=== PATIENT | male | born 1940 | race Caucasian/White ===

== ENCOUNTER → 2016-04-21 | Outpatient (CLI) | payer BC ==
[~2016-04-21] MED LIST: ACT15 PO; ALL300 PO; ASPEC81 PO; CITA10TA4 PO; ERGO1CAP35 PO; EZET10TA63 PO; FURO40TA3 PO; GLIM4TAB2 PO; HYDR-4717 PO; LEVO50TA6 PO; MAGN400C2 PO; METO25TA56 PO; SIMV80TA2 PO; SITA1TAB27 PO
[2016-04-21 12:47] LABS: URINE APPEARANCE CLEAR (CLEAR); URINE BILIRUBIN NEG (NEG); URINE COLOR YELLOW; URINE EPITHELIAL CELL AUTO >30 /lpf (0-5); URINE NITRITE NEG (NEG); URINE PH 6.5 (4.5-7.5); URINE PROTIEN/CREAT RATIO 0.3 (0-0.2); URINE SPECIFIC GRAVITY 1.013 (1.000-1.030); URINE TOTAL PROTEIN 33.6 mg/dl (0-11.9); UROBILINOGEN NEG (NEG)
[2016-04-21 12:49] LABS: MANUAL MICROSCOPIC REQUIRED? NO; REVIEW REQ? NO
== END | disposition home or self-care (01) ==
LOC: C.LABBFT 10:37
PROVIDERS: ATTEND Internal Medicine Nephrology
DX: I12.9 Hypertensive chronic kidney disease with stage 1 through stage 4 chronic kidney disease, or unspecified chronic kidney disease (principal); N18.3 Chronic kidney disease, stage 3 (moderate); E11.22 Type 2 diabetes mellitus with diabetic chronic kidney disease; R80.9 Proteinuria, unspecified; E55.9 Vitamin D deficiency, unspecified

== ENCOUNTER → 2016-04-25 | Outpatient (CLI) | payer BC ==
[2016-04-25 13:47] LABS: HEMATOCRIT 42.2 % (42-52); MEAN CELL VOLUME 90.2 fL (80-100); MEAN CORPUSCULAR HEMOGLOBIN 31.4 pg (25-34); MEAN CORPUSCULAR HGB CONC 34.8 g/dl (32-36); PLATELET COUNT 221 K/uL (130-400); RED BLOOD COUNT 4.68 M/uL (4.7-6.1); WHITE BLOOD COUNT 8.62 K/uL (4.8-10.8)
[2016-04-25 14:04] LABS: BLOOD UREA NITROGEN 39 mg/dl (7-18); BUN/CREATININE RATIO 19.3 (10-20); CALCIUM 9.4 mg/dl (8.5-10.1); CARBON DIOXIDE 27 mmol/L (21-32); CHLORIDE 100 mmol/L (98-107); GLUCOSE 372 mg/dl (70-99); POTASSIUM 4.5 mmol/L (3.5-5.1); SODIUM 137 mmol/L (136-145)
[2016-04-25 14:23] LABS: BETA-HYDROXYBUTYRATE 1.69 mg/dL (0.2-2.81)
== END | disposition home or self-care (01) ==
LOC: C.LAB1850 11:52
PROVIDERS: ATTEND Internal Medicine Nephrology
DX: I12.9 Hypertensive chronic kidney disease with stage 1 through stage 4 chronic kidney disease, or unspecified chronic kidney disease (principal); N18.3 Chronic kidney disease, stage 3 (moderate); R80.9 Proteinuria, unspecified; N25.81 Secondary hyperparathyroidism of renal origin; E55.9 Vitamin D deficiency, unspecified

== ENCOUNTER → 2016-06-26 | Outpatient (CLI) | payer BC ==
[2016-06-26 17:46] LABS: HEMATOCRIT 43.5 % (42-52); MEAN CELL VOLUME 93.1 fL (80-100); MEAN CORPUSCULAR HEMOGLOBIN 31.3 pg (25-34); MEAN CORPUSCULAR HGB CONC 33.6 g/dl (32-36); MEAN PLATELET VOLUME 13.6 fL (7.4-10.4); PLATELET COUNT 210 K/uL (130-400); RED BLOOD COUNT 4.67 M/uL (4.7-6.1); WHITE BLOOD COUNT 7.78 K/uL (4.8-10.8)
[2016-06-26 18:04] LABS: URINE APPEARANCE CLEAR (CLEAR); URINE BILIRUBIN NEG (NEG); URINE COLOR YELLOW; URINE EPITHELIAL CELL AUTO 0-5 /lpf (0-5); URINE NITRITE NEG (NEG); URINE SPECIFIC GRAVITY 1.007 (1.000-1.030); UROBILINOGEN NEG (NEG)
[2016-06-26 18:09] LABS: MANUAL MICROSCOPIC REQUIRED? NO; REVIEW REQ? NO
[2016-06-26 18:11] LABS: URINE PROTIEN/CREAT RATIO 0.4 (0-0.2); URINE TOTAL PROTEIN 22.6 mg/dl (0-11.9)
[2016-06-26 18:13] LABS: ALT/SGPT 21 U/L (12-78); BLOOD UREA NITROGEN 38 mg/dl (7-18); BUN/CREATININE RATIO 22.4 (10-20); CALCIUM 9.1 mg/dl (8.5-10.1); CARBON DIOXIDE 27 mmol/L (21-32); CHLORIDE 104 mmol/L (98-107); CHOLESTEROL 154 mg/dl (0-200); GLUCOSE 310 mg/dl (70-99); POTASSIUM 4.7 mmol/L (3.5-5.1); SODIUM 141 mmol/L (136-145); TRIGLYCERIDES 279 mg/dl (0-150); VERY LOW DENSITY LIPOPROT CALC 56 mg/dl
[2016-06-26 18:16] LABS: ALB/GLOB RATIO 1.1 (0.9-2); ALKALINE PHOSPHATASE 86 U/L (45-117); AST/SGOT 18 U/L (15-37)
[2016-06-26 18:21] LABS: RATIO 230.7 mcg/mg (0-30.0)
[2016-06-26 18:23] LABS: BETA-HYDROXYBUTYRATE 1.49 mg/dL (0.2-2.81); CHOLESTEROL/HDL RATIO 4.4; HDL CHOLESTEROL 35 mg/dl; LDL CHOLESTEROL CALCULATED 63 mg/dl
[2016-06-27 06:08] LABS: ESTIMATED AVERAGE GLUCOSE 240 mg/dl; HA1C FLAG Normal (Normal)
== END | disposition home or self-care (01) ==
LOC: C.LABBFT 12:39
PROVIDERS: ATTEND Internal Medicine
DX: I10 Essential (primary) hypertension (principal); R80.9 Proteinuria, unspecified; N18.3 Chronic kidney disease, stage 3 (moderate); N25.81 Secondary hyperparathyroidism of renal origin; E55.9 Vitamin D deficiency, unspecified; E11.21 Type 2 diabetes mellitus with diabetic nephropathy

== ENCOUNTER → 2016-10-23 | Outpatient (CLI) | payer BC | END | disposition home or self-care (01) | LOC: C.PATHSPEC 16:37 | PROVIDERS: ATTEND Dermatology | DX: C44.311 Basal cell carcinoma of skin of nose (principal); C44.319 Basal cell carcinoma of skin of other parts of face; C44.42 Squamous cell carcinoma of skin of scalp and neck; L82.1 Other seborrheic keratosis ==

== ENCOUNTER → 2016-11-20 | Outpatient (CLI) | payer BC | END | disposition home or self-care (01) | LOC: C.PATHSPEC 17:16 | PROVIDERS: ATTEND Plastic Surgery | DX: L90.5 Scar conditions and fibrosis of skin (principal); L57.8 Other skin changes due to chronic exposure to nonionizing radiation; L82.1 Other seborrheic keratosis ==

== ENCOUNTER → 2016-11-24 | Outpatient (CLI) | payer BC ==
[2016-11-24 12:16] LABS: HEMATOCRIT 45.3 % (42-52); MEAN CELL VOLUME 93.4 fL (80-100); MEAN CORPUSCULAR HEMOGLOBIN 30.1 pg (25-34); MEAN CORPUSCULAR HGB CONC 32.2 g/dl (32-36); MEAN PLATELET VOLUME 12.9 fL (7.4-10.4); PLATELET COUNT 228 K/uL (130-400); RED BLOOD COUNT 4.85 M/uL (4.7-6.1); WHITE BLOOD COUNT 9.47 K/uL (4.8-10.8)
[2016-11-24 12:30] LABS: ESTIMATED AVERAGE GLUCOSE 154 mg/dl; HA1C FLAG Normal (Normal)
[2016-11-24 12:31] LABS: ALT/SGPT 28 U/L (12-78); BLOOD UREA NITROGEN 31 mg/dl (7-18); BUN/CREATININE RATIO 19.2 (10-20); CALCIUM 8.4 mg/dl (8.5-10.1); CARBON DIOXIDE 28 mmol/L (21-32); CHLORIDE 107 mmol/L (98-107); CHOLESTEROL 131 mg/dl (0-200); GLUCOSE 147 mg/dl (70-99); POTASSIUM 4.2 mmol/L (3.5-5.1); SODIUM 142 mmol/L (136-145); TRIGLYCERIDES 146 mg/dl (0-150); VERY LOW DENSITY LIPOPROT CALC 29 mg/dl
[2016-11-24 12:40] LABS: URINE PROTIEN/CREAT RATIO 0.3 (0-0.2); URINE TOTAL PROTEIN 22.8 mg/dl (0-11.9)
[2016-11-24 12:41] LABS: URINE APPEARANCE CLEAR (CLEAR); URINE BILIRUBIN NEG (NEG); URINE COLOR YELLOW; URINE EPITHELIAL CELL AUTO 0-5 /lpf (0-5); URINE NITRITE NEG (NEG); URINE PH 7.5 (4.5-7.5); URINE SPECIFIC GRAVITY 1.015 (1.000-1.030); UROBILINOGEN NEG (NEG)
[2016-11-24 12:44] LABS: ALB/GLOB RATIO 0.9 (0.9-2); ALKALINE PHOSPHATASE 93 U/L (45-117); AST/SGOT 18 U/L (15-37); CHOLESTEROL/HDL RATIO 3.9; HDL CHOLESTEROL 34 mg/dl; LDL CHOLESTEROL CALCULATED 68 mg/dl
[2016-11-24 12:51] LABS: MANUAL MICROSCOPIC REQUIRED? NO; REVIEW REQ? NO
[2016-11-24 12:52] LABS: SULFASALICYLIC ACID NEG (NEG)
== END | disposition home or self-care (01) ==
LOC: C.LABBFT 07:27
PROVIDERS: ATTEND Internal Medicine
DX: I12.9 Hypertensive chronic kidney disease with stage 1 through stage 4 chronic kidney disease, or unspecified chronic kidney disease (principal); R50.9 Fever, unspecified; N18.3 Chronic kidney disease, stage 3 (moderate); N25.81 Secondary hyperparathyroidism of renal origin; E11.21 Type 2 diabetes mellitus with diabetic nephropathy

== ENCOUNTER → 2017-06-24 | Outpatient (CLI) | payer BC ==
[2017-06-24 12:16] LABS: HEMATOCRIT 47.9 % (42-52); HEMOGLOBIN 15.5 g/dL (14.0-18.0); MEAN CELL VOLUME 92.6 fL (80-100); MEAN CORPUSCULAR HGB CONC 32.4 g/dl (32-36); MEAN PLATELET VOLUME 13.3 fL (7.4-10.4); PLATELET COUNT 205 K/uL (130-400); RED CELL DISTRIBUTION WIDTH CV 14.7 % (11.5-14.5); RED CELL DISTRIBUTION WIDTH SD 49.4 fL (36.4-46.3); WHITE BLOOD COUNT 9.33 K/uL (4.8-10.8)
[2017-06-24 12:25] LABS: ALBUMIN 3.4 gm/dl (3.4-5.0); ALT/SGPT 28 U/L (12-78); BLOOD UREA NITROGEN 33 mg/dl (7-18); CALCIUM 8.9 mg/dl (8.5-10.1); CARBON DIOXIDE 27 mmol/L (21-32); CHOLESTEROL 130 mg/dl (0-200); CREATININE 1.56 mg/dl (0.60-1.40); GLUCOSE 139 mg/dl (70-99); POTASSIUM 4.2 mmol/L (3.5-5.1); SODIUM 141 mmol/L (136-145)
[2017-06-24 12:36] LABS: ALKALINE PHOSPHATASE 81 U/L (45-117); AST/SGOT 14 U/L (15-37); LDL CHOLESTEROL CALCULATED 61 mg/dl; TOTAL PROTEIN 7.1 gm/dl (6.4-8.2)
== END | disposition home or self-care (01) ==
LOC: C.LABBFT 07:57
PROVIDERS: ATTEND Internal Medicine Nephrology
DX: I10 Essential (primary) hypertension (principal); R80.9 Proteinuria, unspecified; N18.3 Chronic kidney disease, stage 3 (moderate); N25.81 Secondary hyperparathyroidism of renal origin; E55.9 Vitamin D deficiency, unspecified; E11.21 Type 2 diabetes mellitus with diabetic nephropathy

== ENCOUNTER → 2017-07-06 | Outpatient (CLI) | payer BC ==
--- NOTE | 2017-07-06 12:09 | DIAGNOSTIC IMAGING REPORT ---
CAROTID ARTERY ULTRASOUND CLINICAL HISTORY: Hypertension. COMPARISON STUDY: Carotid ultrasound November 07, 2013. TECHNIQUE: Real-time, grayscale, and color Doppler sonography of the carotid and vertebral arteries was performed. Images were viewed in the transverse and longitudinal planes. FINDINGS: There is moderate to extensive atherosclerotic plaque. Velocity measurements are listed below. COMMON CAROTID PEAK SYSTOLIC VELOCITY (CM/S): RIGHT 50 LEFT 47 ICA PEAK SYSTOLIC VELOCITY (CM/S): RIGHT 145 LEFT 100 Systolic ratio between the right internal to common carotid artery is elevated at 2.9. Antegrade flow is seen in the vertebral arteries. The external carotid arteries are patent. Blood pressure in the right arm measured 190/108. Blood pressure in the left arm measured 186/92. IMPRESSION: 1. Findings suggestive of a 50-69% stenosis of the proximal right internal carotid artery. 2. Elevated blood pressure, as above. Electronically signed by: Pavel Nuñez M.D. 07/06/2017 12:07 PM Dictated Date/Time: 07/06/2017 12:05 PM
== END | disposition home or self-care (01) ==
LOC: C.ULTR 10:05
PROVIDERS: ATTEND Internal Medicine Nephrology
DX: E55.9 Vitamin D deficiency, unspecified (principal); I10 Essential (primary) hypertension; I73.9 Peripheral vascular disease, unspecified; N25.81 Secondary hyperparathyroidism of renal origin; R80.9 Proteinuria, unspecified; I65.21 Occlusion and stenosis of right carotid artery

== ENCOUNTER 2020-07-31 06:14 | Inpatient (IN) ==
--- NOTE | 2020-07-20 15:16 | PAT Medication Instructions ---
Medication Instructions Date of Service July 20, 2020 Home Medications Medication Instructions Recorded metoprolol tartrate 25 mg tablet 12.5 mg PO BID #90 tab 10/17/19 dulaglutide 1.5 mg/0.5 mL 1.5 mg SQ .COMPLEX #6 ml 12/05/19 subcutaneous pen injector glimepiride 4 mg tablet 4 mg PO BID #180 tab 12/12/19 furosemide 40 mg tablet 40 mg PO BID #180 tab 02/27/20 ergocalciferol (vitamin D2) 1,250 50,000 unit PO MONTHLY #12 cap 03/05/20 mcg (50,000 unit) capsule simvastatin 80 mg tablet 80 mg PO QPM #90 tab 03/16/20 pen needle, diabetic 31 gauge x #100 ea 04/17/2008/26" hydralazine 50 mg tablet See Rx Instructions .ROUTE 06/04/20 .COMPLEX #270 tab levothyroxine 50 mcg tablet 50 mcg PO DAILY #90 tab 06/04/20 apixaban 2.5 mg tablet 2.5 mg PO BID #60 tab 06/26/20 metoprolol tartrate 25 mg tablet 12.5 mg PO BID dulaglutide 1.5 mg/0.5 mL subcutaneous pen injector 1.5 mg SQ .COMPLEX glimepiride 4 mg tablet 4 mg PO BID furosemide 40 mg tablet 40 mg PO BID ergocalciferol (vitamin D2) 1,250 mcg (50,000 unit) capsule 50,000 unit PO MONTHLY simvastatin 80 mg tablet 80 mg PO QPM Tresiba FlexTouch U-100 80 unit SQ QAM allopurinol 300 mg PO PM aspirin [Adult Aspirin Regimen] 81 mg PO QAM ezetimibe [Zetia] 10 mg PO PM hydralazine 50 mg tablet See Rx Instructions .ROUTE .COMPLEX levothyroxine 50 mcg tablet 50 mcg PO DAILY apixaban 2.5 mg tablet 2.5 mg PO BID docusate sodium 100 mg tablet 300 mg PO DAILY Continue as directed Tresiba FlexTouch U-100 80 unit SQ QAM ASK your prescriber and surgeon aspirin [Adult Aspirin Regimen] 81 mg PO QAM apixaban 2.5 mg tablet 2.5 mg PO BID DO NOT take the morning of surgery glimepiride 4 mg tablet 4 mg PO BID furosemide 40 mg tablet 40 mg PO BID ergocalciferol (vitamin D2) 1,250 mcg (50,000 unit) capsule 50,000 unit PO MONTHLY docusate sodium 100 mg tablet 300 mg PO DAILY Take morning of surgery With a small sip of water, OTHERWISE NOTHING TO EAT OR DRINK AFTER MIDNIGHT: metoprolol tartrate 25 mg tablet 12.5 mg PO BID hydralazine 50 mg tablet See Rx Instructions .ROUTE .COMPLEX levothyroxine 50 mcg tablet 50 mcg PO DAILY Take evening before surgery metoprolol tartrate 25 mg tablet 12.5 mg PO BID glimepiride 4 mg tablet 4 mg PO BID furosemide 40 mg tablet 40 mg PO BID simvastatin 80 mg tablet 80 mg PO QPM allopurinol 300 mg PO PM ezetimibe [Zetia] 10 mg PO PM hydralazine 50 mg tablet See Rx Instructions .ROUTE .COMPLEX Insulin Dependent Diabetic Patients * Test your blood sugar the morning of surgery * If Blood Sugar is GREATER THAN 150, take HALF of your regular dose of: Tresiba FlexTouch U-100 take 40 units * If Blood Sugar is LESS THAN 150, DO NOT TAKE ANY: Tresiba FlexTouch Other Notes If you have any questions please call us at [phone] or [phone] or [phone] or [phone]
--- NOTE | 2020-07-24 10:21 | Anesthesiology Consultation ---
Date of Service July 24, 2020 Assessment & Plan (1) Encounter for pre-operative examination: - Cardiology office visit (07/12/20): "He has not had any symptoms of myocardial ischemia, his troponin during his recent hospitalization was normal despite noe ed hypertension, he had no significant coronary disease during catheterization prior to his aortic valve replacement 2006, and his aortic valve is functioning appropriately on recent echocardiogram. Given these findings, appropriate that he proceed to right carotid endarterectomy just over 2 weeks from now.. As noted, he was newly diagnosed with atrial fibrillation, but this seems to be asymptomatic with good rate control on minimal beta-mague. He was initiated on reduced dose apixaban (due to his renal insufficiency and concurrent aspirin use) and is appropriately anticoagulated. The fact that he requires such a low dose of beta-mague for rate control raises the possibility of conduction system disease. Since there is some uncertainty surrounding whether there was any loss of consciousness during the episode prompting his recent hospitalization, I recommended obtaining an MCOT monitor for the next 2 weeks we will evaluate his ventricular rate response as well as to assess whether he has paroxysmal atrial fibrillation which returns periodically to sinus rhythm (which can be accompanied by significant pauses during transitions). I will review his monitor results 2 weeks from today and discuss them prior to his carotid surgery.. Auscultation is consistent with the echocardiographic findings of mild to moderate functional stenosis of his bioprosthetic valve, would follow-up with annual auscultation and further echocardiograms every 1 to 2 years." Awaiting cardiology follow-up evaluation. - COVID screening: Per assessment on 07/24: Travel screen negative, no known COVID-19 positive contacts or current COVID-19 related symptoms. Patient fully vaccinated. Surgeon arranged preop COVID testing (done 07/24 at surgeon's office). Awaiting results. - Check BSG AM DOS - ASA/Apixaban instructions: per surgeon/prescriber - Possible difficult intubation: due to anatomy Chart Review Chart Review: Patient seen in Pre Admission Testing Teaching & Discussion Pre-Anesthesia Teaching/Discussion Notes: Instructed NPO after midnight before surgery,except medications with 15 cc of water. Medication instructions provided according to the PAT guidelines. History Surgery Operation Date: 07/31/20 07:30 Proposed Procedures p Right Carotid Endarterectomy - Geoffrey Cary MD Height/Weight Height: 5 ft 11 in Weight: 115.8 kg Allergies Allergy/AdvReac Type Severity Reaction Status Date / Time levofloxacin Allergy Mild Rash, Verified 07/24/20 11:49 Pruritus Medications Home Medications Medication Instructions Recorded Confirmed Last Taken metoprolol tartrate 25 mg tablet 12.5 mg PO BID #90 tab 10/17/19 07/12/20 06/02/20 dulaglutide 1.5 mg/0.5 mL 1.5 mg SQ .COMPLEX #6 ml 12/05/19 07/12/20 05/29/20 subcutaneous pen injector glimepiride 4 mg tablet 4 mg PO BID #180 tab 12/12/19 07/12/20 06/02/20 furosemide 40 mg tablet 40 mg PO BID #180 tab 02/27/20 07/12/20 06/02/20 ergocalciferol (vitamin D2) 1,250 50,000 unit PO MONTHLY #12 cap 03/05/2006/01/20 mcg (50,000 unit) capsule simvastatin 80 mg tablet 80 mg PO QPM #90 tab 03/16/20 07/12/20 06/01/20 pen needle, diabetic 31 gauge x #100 ea 04/17/20 07/12/20 Unknown 08/26" Tresiba FlexTouch U-100 80 unit SQ QAM 06/02/20 07/12/20 06/02/20 allopurinol 300 mg PO PM 06/02/20 07/12/20 06/01/20 aspirin [Adult Aspirin Regimen] 81 mg PO QAM 06/02/20 07/12/20 06/02/20 ezetimibe [Zetia] 10 mg PO PM 06/02/20 07/12/20 06/01/20 hydralazine 50 mg tablet See Rx Instructions .ROUTE 06/04/20 07/12/20 Unknown .COMPLEX #270 tab levothyroxine 50 mcg tablet 50 mcg PO DAILY #90 tab 06/04/20 07/12/20 Unknown apixaban 2.5 mg tablet 2.5 mg PO BID #60 tab 06/26/20 07/12/20 Unknown docusate sodium 100 mg tablet 300 mg PO DAILY tab 07/12/20 07/12/20 Unknown Past Medical History Medical History (Updated 07/24/20 @ 11:54 by Ondina Perea) Atrial fibrillation Recent diagnosis > on Apixaban Carotid artery stenosis CHF (congestive heart failure) Chronic kidney disease, stage II (mild) Diabetes mellitus, type 2 IDDM H/O: CVA (cerebrovascular accident) 2005 > no residual effects History of aortic valve disease s/p bioprosthetic AVR (2006) History of basal cell carcinoma History of SCC (squamous cell carcinoma) of skin Hyperlipidemia Hypertension Hypothyroidism Transient ischemic attack (TIA) 06/02/20 > on Eliquis Exercise / Class Metabolic Activity III < 4 Walking/Shop/Light housework Past Family History Family History Mother Cancer Family history of diabetes mellitus Father Tobacco use Other No family history of adverse response to anesthesia Denies family history of Ovarian cancer Prostate cancer Myocardial infarction Breast cancer Colorectal cancer Past Surgical History Surgical History History of cataract surgery R/L History of nasal septoplasty History of tooth extraction Hx of vasectomy S/P aortic valve replacement with bioprosthetic valve (2006) Past Anesthesia History No Hx of Anesthesia Complications and No Family Hx of Anesthesia Complications History of PONV No Hx of PONV and No Hx of Motion Sickness Social History Smoking Status: Former smoker Do You Dip or Chew Tobacco: No Smoking End Date: Quit 50 years ago Hx Alcohol Use: Yes Alcohol type: beer alcohol intake frequency: holidays/special occasions only Hx Substance Use: No substance use type: does not use Review of Systems Patient denies chest pain, shortness of breath, fever, chills, cough, wheezing, palpitations. Physical Exam Vital Signs VITALS BP 159/78 P 89 TEMP 97.8 SP02 94%RA RESP 16 PHYSICAL Full cervical extension range of motion. Full TMJ range of motion. TMD 3 finger breaths (difficult to palpate) Mallampati Score 4 (small oral opening) Dentition: several missing including lower left front Lungs: clear throughout to auscultation Cardiac: regular rate, irregular rhythm, no murmurs noted Spine: normal Carotid arteries: negative bruit Extremities: no edema Testing Laboratory Results 07/24/20 10:52 07/24/20 10:52 PT 10.9 Seconds (9.0-12.0) 07/24/20 10:52 INR 1.1 (0.9-1.1) 04/13/21 10:52 APTT 29.8 Seconds (21.0-31.0) 07/24/20 10:52 Blood Type A Positive 07/24/20 10:52 Antibody Screen NEGATIVE 07/24/20 10:52 Electrocardiogram Date: 06/02/20 Atrial fibrillation at [address]/T wave abnormality, consider lateral ischemia. Compared to 01/03/2014, atrial fibrillation has replaced sinus rhythm and QT has lengthened per digital marketing assistant review. Chest X-Ray Date: 07/24/20 FINDINGS: PA and lateral chest radiographs are compared to study dated 06/02/2020 and correlated with chest CT dated 02/14/2010. An electronic device projects over the mid chest. The patient is status post midline sternotomy. The heart is enlarged noting atherosclerotic calcification of the thoracic aorta. The pulmonary vasculature is noncongested. Chronic interstitial thickening is similar to previous. There is bibasilar scarring/atelectasis. There is a trace right pleural effusion. There is no pneumothorax. The skeletal structures are osteopenic. The bony thorax appears intact. Degenerative change is seen throughout the thoracic spine. IMPRESSION: Cardiomegaly without radiographic evidence of congestive failure. Trace right pleural effusion. No airspace consolidation is seen typical for pneumonia. Echocardiogram Date: 06/03/20 EF 60 to 65%. No regional motion abnormality. Moderate concentric LVH. Moderate RV VH. Bioprosthetic aortic valve. Moderate mitral annular calcification. Mild MR. Mildly dilated IVC. RVSP elevated at 30 to 40 mmHg. Mild TR. Other Testing Neck CTA (06/02/20): Severe stenosis of the proximal right internal carotid artery (approximately 90%). Mild stenosis of the proximal left internal carotid artery. Moderate stenosis at the origin of the bilateral vertebral arteries. Partially visualized right pleural effusion. Brain MRI (06/02/20): No acute intracranial findings. Old left frontal lobe infarct. Head CTA (06/02/20): No central vessel occlusion. No intracranial aneurysm. Old left frontal lobe infarct. MCOT laboratory monitor report (07/12-08/10/20): Atrial fibrillation. Controlled heart rate.
[2020-07-24 11:16] LABS: Basophils # (auto) 0.02 K/uL (0-0.2); Basophils % (auto) 0.2 %; Eosinophils # (auto) 0.05 K/uL (0-0.5); Eosinophils % (auto) 0.6 %; Hematocrit (blood only) 46.3 % (42-52); Hemoglobin 15.3 g/dL (14.0-18.0); Immature Granulocytes # (auto) 0.01 K/uL (0.00-0.02); Immature Granulocytes % (auto) 0.1 %; Lymphocytes # (auto) 1.37 K/uL (1.2-3.4); Lymphocytes % (auto) 16.7 %; Mean Corpuscular Hemoglobin 30.4 pg (25-34); Mean Corpuscular Volume 91.9 fL (80-100); Mean Platelet Volume 11.7 fL (7.4-10.4); Monocytes # (auto) 0.57 K/uL (0.11-0.59); Neutrophils # (auto) 6.18 K/uL (1.4-6.5); Neutrophils % (auto) 75.4 %; Platelet Count 225 K/uL (130-400); RDW Coefficient of Variation 14.8 % (11.5-14.5); RDW Standard Deviation 50.2 fL (36.4-46.3); Red Blood Count 5.04 M/uL (4.7-6.1)
--- NOTE | 2020-07-24 11:20 | XRay Report ---
TWO VIEW CHEST CLINICAL HISTORY: Cardiomegaly. Preoperative assessment. FINDINGS: PA and lateral chest radiographs are compared to study dated 06/02/2020 and correlated with chest CT dated 02/14/2010. An electronic device projects over the mid chest. The patient is status pos t midline sternotomy. The heart is enlarged noting atherosclerotic calcification of the thoracic aort a. The pulmonary vasculature is noncongested. Chronic interstitial thickening is similar to previous. There is bibasilar scarring/atelectasis. There is a trace right pleural effusion. There is no pneumo thorax. The skeletal structures are osteopenic. The bony thorax appears intact. Degenerative change i s seen throughout the thoracic spine. IMPRESSION: 1. Cardiomegaly without radiographic evidence of congestive failure. 2. Trace right pleural effusion. 3. No airspace consolidation is seen typical for pneumonia. ACT 112: Negative or not required by law. Electronically signed by: Cosme Ledesma M.D. 07/24/2020 11:19 AM
[2020-07-24 11:32] LABS: INR 1.1 (0.9-1.1); Partial Thromboplastin Ratio 1.1; Partial Thromboplastin Time 29.8 Seconds (21.0-31.0); Prothrombin Time 10.9 Seconds (9.0-12.0)
[2020-07-24 13:03] LABS: BUN Creatinine Ratio 18.3 (10-20); Creatinine Clr Calc Pharmacy 54.5 ml/min; Est GFR (African American) 54.6; Est GFR (Non-African American) 47.1; Potassium 3.7 mmol/L (3.5-5.1)
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
[~2020-07-31 06:14] MED LIST changes: -ACT15 PO; -ALL300 PO; -ASPEC81 PO; -CITA10TA4 PO; -ERGO1CAP35 PO; -EZET10TA63 PO; -FURO40TA3 PO; -GLIM4TAB2 PO; -HYDR-4717 PO; -LEVO50TA6 PO; +LR 15ML/HR IV SCH; -MAGN400C2 PO; -METO25TA56 PO; -SIMV80TA2 PO; -SITA1TAB27 PO; +SODIUM CHLORIDE 0.9% 1000ML IV SCH; +ceFAZolin 2000MG 2,000 MG/15 ML SYR IV SCH
[2020-07-31] MEDS ORDERED: BUPIVACAINE/EPINEPHRINE 0.5% MPF 1:200,000 30 ML VIAL ONE (07:00)
[2020-07-31] MEDS ORDERED: LIDOCAINE HCL 1% 20 ML VIAL ONE (07:00)
[2020-07-31] MEDS ORDERED: GELATIN SPONGE SZ 100 ONE (07:00)
[2020-07-31] MEDS ORDERED: THROMBIN FOR SOLN 20000 UNIT KIT ONE (07:00)
[2020-07-31] MEDS ORDERED: HEPARIN (PORCINE) 1000 UNIT/ML 10 ML (CATH LAB USE ONLY) ONE (07:00)
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
[2020-07-31] MEDS ORDERED: LABETALOL HCL IV 5 MG/ML 20ML IV PRN (07:39)
[2020-07-31] MEDS ORDERED: ATROPINE SULFATE 0.1 MG/ML 10ML SYR IV PRN (07:39)
[2020-07-31] MEDS ORDERED: ONDANSETRON INJ 2 MG/ML 2 ML VIAL IV PRN (07:39)
[2020-07-31] MEDS ORDERED: fentaNYL citrate 100 MCG/2 ML VIAL IV PRN (07:39)
[2020-07-31] MEDS ORDERED: SUCCINYLCHOLINE 100MG/5ML SYR IV ONE (07:45)
[2020-07-31] MEDS ORDERED: LIDOCAINE HCL 2% 2 ML VIAL/AMP(20MG/ML) INFIL ONE (07:45)
[2020-07-31] MEDS ORDERED: CISATRACURIUM BESYLATE IV SOLN 2 MG/ML 10 ML VIAL IV ONE (07:45)
[2020-07-31] MEDS ORDERED: PROPOFOL IV EMULSION 10 MG/ML 20 ML VIAL IV ONE (07:45)
[2020-07-31] MEDS ORDERED: ONDANSETRON INJ 2 MG/ML 2 ML VIAL ONE (07:45)
[2020-07-31] MEDS ORDERED: DEXAMETHASONE SOD INJ 4 MG/ML VIAL ONE (07:45)
[2020-07-31] MEDS ORDERED: fentaNYL citrate 100 MCG/2 ML VIAL ONE ×2 (07:45)
[2020-07-31] MEDS ORDERED: HEPARIN SOD (PORCINE) 1000 UNIT/ML ONE (10:17)
[2020-07-31] MEDS ORDERED: GLYCOPYRROLATE 0.2 MG/ML VIAL ONE (10:38)
[2020-07-31] MEDS ORDERED: NEOSTIGMINE METHYLSULFATE 5 MG/5 ML SYR ONE (10:38)
--- NOTE | 2020-07-31 10:48 | Post Operative Brief Note ---
Immediate Post Op Note v1 Date of Surgery July 31, 2020 Pre & Post Diagnosis Operation Date: 07/31/20 08:00 Pre-Op Diagnosis: Right Internal Carotid Artery Stenosis Post-Op Diagnosis: Right Internal Carotid Artery Stenosis I identified the patient and participated in the time-out.: Yes Procedure Operation Date: 07/31/20 08:00 Actual Procedures p Right Carotid Endarterectomy with Bovine Patch(Right) - Geoffrey Cary MD Surgeon Geoffrey Cary MD Lease Out Worker MD Rey Estimated Blood Loss 50 Findings Consistent with Post-Op Diagnosis Anesthesia Type General Complications none Disposition Accompanied Patient To Recovery: No Disposition: Recovery Room
--- NOTE | 2020-07-31 10:58 | Operative Report ---
Post Operative Report Pre & Post Diagnosis Operation Date: 07/31/20 08:00 Pre-Op Diagnosis: Right Internal Carotid Artery Stenosis Post-Op Diagnosis: Right Internal Carotid Artery Stenosis I identified the patient and participated in the time-out.: Yes Procedure Operation Date: 07/31/20 08:00 Actual Procedures p Right Carotid Endarterectomy(Right) - Geoffrey Cary MD Surgeon Riri Tobar MD Waiter/Waitress Mark Blake Estimated Blood Loss 50 Findings See Below focal atherosclerotic plaque at bifurcation Specimens internal, external, and common carotid plaque Anesthesia Type General Complications none Indications Asymptomatic R carotid disease Description of Procedure The patient was taken to the operating room and placed in supine position. After general anesthesia was accomplished the right-side of the neck was prepped and draped in a sterile manner. The patient was identified and a timeout was performed. A longitudinal neck incision was then made coursing along the medial border of the sternocleidomastoid muscle. The incision was taken down through the platysmal layer. The facial vein was identified, ligated, and divided. The common carotid artery was then seen. It was dissected free down to the omohyoid muscle. The dissection was carried upward until the external carotid artery and superior thyroid artery was seen. The superior thyroid artery was slung with a 2-0 silk suture. The external carotid was slung with a red rubber vessel loop. Next the dissection was carried up along the internal carotid artery. This was carried upward to beyond the area of narrowing. The hypoglossal nerve was not seen. The patient was heparinized. After adequate heparinization was accomplished, the internal, external, and common carotid arteries were clamped. A longitudinal arteriotomy was started on the common carotid artery and extended along the internal carotid artery to a point beyond the area of narrowing. There was calcified plaque of the internal carotid artery origin causing approximately 85-90% narrowing. A Sundt shunt was then placed in the internal, followed by the common carotid artery and held in place with Alfredo clamps. There was good back bleeding seen from the internal carotid artery. The endarterectomy was then started in the appropriate plane on the common carotid artery. This was carried upward and the external carotid was everted and endarterectomized. The endarterectomy was then carried up along the internal carotid artery and the intima beyond the plaque was divided with Jean Baptiste scissors. The endarterectomy was then carried down further on the common carotid artery. At end of the arteriotomy, the plaque was then transected. Under loop magnification, all loose debris and flaps were removed. The proximal edge of the intima was tacked with interrupted 6-0 Prolene sutures. The distal back wall was also tacked with 6-0 Prolene sutures. The arteriotomy then closed using a bovine carotid patch and a running 6-0 Prolene suture. This was done in the usual vascular fashion. Prior to completing the closure, the shunt was removed and the internal and common carotid arteries were reclamped. Backbleeding and forward bleeding was allowed to occur. The flow surface was irrigated with heparinized saline. The final few sutures were then placed and securely tied. Clamps were then removed off the external and common carotid arteries. The clamp was then removed the internal carotid artery. Good distal flow was seen. Adequate hemostasis was seen of the patch. The wound was inspected and adequate hemostasis was obtained. The wound was irrigated with antibiotic solution. It was then closed with a running 3-0 Vicryl suture for the platysmal layer and a 4-0 subcuticular Vicryl suture for the skin edges. Dermabond was used for dressing. The patient left the operating room in satisfactory condition and tolerated the procedure well. Dr. Cary was present and scrubbed for the entire procedure. I attest to the content of the Intraoperative Record and any orders documented therein. Any exceptions are noted below.
[2020-07-31] MEDS ORDERED: MoRPHine SULFATE 4 MG/ML 1 ML CARP\\VIAL IV PRN (12:22)
[2020-07-31] MEDS ORDERED: oxyCODONE/ACETAMINOPHEN 5mg/325mg TAB PO PRN (12:22)
--- NOTE | 2020-07-31 12:28 | Anesthesiology Progress Note ---
Date of Service July 31, 2020 Anesthesia Post Procedure Vital Signs Vital Signs: Temp Pulse Pulse Resp BP Pulse Ox 07/31/20 11:55 36.5 C 107 H 15 163/87 H 94 07/31/20 11:45 102 H 14 150/86 H 94 07/31/20 11:35 121 H 15 150/93 H 96 07/31/20 11:25 114 H 19 168/79 H 95 07/31/20 11:17 36.3 C L 107 H 17 147/83 H 94 07/31/20 07:28 36.5 C 97 H 18 170/79 H 95 Transfer of Care Handoff Completed per policy Notes Mental Status: alert / awake / arousable Patient Amnestic to Procedure: Yes Nausea / Vomiting: adequately controlled Pain: adequately controlled Airway Patency, RR, SpO2: stable & adequate BP & HR: stable & adequate Hydration State: stable & adequate Anesthetic Complications: no major complications apparent
[2020-07-31] MEDS: METOPROLOL TARTRATE 25 MG TAB PO SCH ×2 (13:18→21:03)
[2020-07-31] MEDS: hydrALAZINE TAB 50 MG TAB PO SCH ×2 (13:19→21:04)
[2020-07-31] MEDS: LACTATED RINGER'S 1,000 ML IV SCH ×2 (13:21→15:48)
[2020-07-31] MEDS ORDERED: GLUCOSE 40% GEL 15 GM TUBE PO PRN ×2 (14:15→21:00)
[2020-07-31] MEDS ORDERED: CARBOHYDRATES FOR HYPOGLYCEMIA PO PRN (14:15)
[2020-07-31] MEDS ORDERED: DEXTROSE 50% 50 ML SYRINGE IV PRN (14:15)
[2020-07-31] MEDS ORDERED: GLUCAGON FOR INJ 1 MG VIAL IM PRN (14:15)
[2020-07-31] MEDS ORDERED: GLUCOSE 10 TABS/TUBE PO PRN (14:15)
[2020-07-31] MEDS ORDERED: amLODIPine BESYLATE 5 MG TAB PO ONE (14:23)
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
[2020-07-31] MEDS ORDERED: CHLORASEPTIC 1.4% SOLN 180 ML BTL MT PRN (15:23)
--- NOTE | 2020-07-31 15:30 | Billing Data ---
Date of Service July 31, 2020 Coding Level of Care Code 91232 Initial Inpt Care Lvl 3
[2020-07-31] MEDS: FUROSEMIDE 40 MG TAB PO SCH (15:47)
[2020-07-31] MEDS: ceFAZolin 2000MG 2,000 MG/15 ML SYR IV SCH ×2 (15:47→23:52)
[2020-07-31] MEDS ORDERED: lisinopril 10 MG TAB PO STA (16:34)
[2020-07-31 18:10] LABS: BUN Creatinine Ratio 16.7 (10-20); Calcium 8.5 mg/dl (8.5-10.1); Creatinine Clr Calc Pharmacy 44.7 ml/min; Est GFR (African American) 43.2; Est GFR (Non-African American) 37.3; Potassium 4.4 mmol/L (3.5-5.1)
[2020-07-31] MEDS ORDERED: EZETIMIBE 10 MG TABLET PO SCH (21:00)
[2020-07-31] MEDS ORDERED: SIMVASTATIN 80 MG TAB PO SCH (21:00)
[2020-07-31] MEDS ORDERED: allopurinoL 300 MG TAB PO SCH (21:00)
[2020-07-31] MEDS ORDERED: PHARMACY GLYCEMIC MGMT CONSULT STA (21:00)
[2020-07-31] MEDS ORDERED: INSULIN GLARGINE SOLOSTAR 100 UNITS/ML 3 ML PEN SC ONE (22:00)
[2020-07-31] MEDS ORDERED: PHARMACY GLYCEMIC MGMT CONSULT PRN (22:00)
[2020-07-31] MEDS: INSULIN ASPART 100 UNITS/ML 3 ML PEN SC SCH (22:40)
[2020-08-01 05:09] LABS: Basophils # (auto) 0.01 K/uL (0-0.2); Basophils % (auto) 0.1 %; Hematocrit (blood only) 40.9 % (42-52); Hemoglobin 13.3 g/dL (14.0-18.0); Immature Granulocytes # (auto) 0.01 K/uL (0.00-0.02); Immature Granulocytes % (auto) 0.1 %; Lymphocytes # (auto) 1.03 K/uL (1.2-3.4); Mean Corpuscular Hgb Conc 32.5 g/dL (32-36); Mean Corpuscular Volume 92.1 fL (80-100); Mean Platelet Volume 11.7 fL (7.4-10.4); Monocytes # (auto) 1.06 K/uL (0.11-0.59); Monocytes % (auto) 9.2 %; Neutrophils # (auto) 9.36 K/uL (1.4-6.5); Neutrophils % (auto) 81.6 %; Platelet Count 219 K/uL (130-400); RDW Coefficient of Variation 14.9 % (11.5-14.5); RDW Standard Deviation 50.3 fL (36.4-46.3); Red Blood Count 4.44 M/uL (4.7-6.1); White Blood Count 11.47 K/uL (4.8-10.8)
[2020-08-01 05:37] LABS: BUN Creatinine Ratio 20.5 (10-20); Calcium 8.6 mg/dl (8.5-10.1); Creatinine Clr Calc Pharmacy 50.2 ml/min; Est GFR (African American) 49.8; Magnesium 2.2 mg/dl (1.8-2.4); Potassium 4.1 mmol/L (3.5-5.1)
[2020-08-01 05:38] LABS: Phosphorus 3.5 mg/dl (2.5-4.9)
[2020-08-01] MEDS: METOPROLOL TARTRATE 25 MG TAB PO SCH (05:43)
[2020-08-01] MEDS: FUROSEMIDE 40 MG TAB PO SCH (05:43)
[2020-08-01] MEDS ORDERED: LEVOTHYROXINE SODIUM 50 MCG TABLET PO SCH (06:30)
[2020-08-01] MEDS: INSULIN ASPART 100 UNITS/ML 3 ML PEN SC SCH ×2 (07:41→11:48)
[2020-08-01] MEDS ORDERED: GLIMEPIRIDE 2 MG TAB PO SCH (08:00)
[2020-08-01] MEDS ORDERED: FELODIPINE 2.5 MG TABCR PO STA (08:15)
--- NOTE | 2020-08-01 08:25 | Critical Care Progress Note ---
Date of Service August 01, 2020 Assessment & Plan (1) Asymptomatic stenosis of right carotid artery: Reason Critically Ill: Andrew is a 79 year old left-handed gentleman with history of new-onset atrial fibrillation (05/2020), HFpEF, hypothyroidism, ID-T 2DM, CKD2, AVR with bioprosthetic valve in 2006 who presented to [facility] on 07/31 for planned right carotid endarterectomy and is now POD-0. He remains in the ICU for neurologic and cardiac monitoring following this procedure. Neuro - [facility] ICU: NEGATIVE Sedation: None Analgesia: Tylenol p.r.n. * Based on review of patient's chart, impression is that recent hospitalization for confusion, amnesia, ?R sided weakness was likely not secondary to TIA born e of R ICA stenosis * Evidence of old left frontal lobe infarct on MRI from 05/2020 * Neurologic exam continues to be notable for very trace motor deficits on RUE/RLE when compared to left-side * Daily neurologic assessments in setting of recent surgery * BP control, as below Cardiovascular - Carotid Artery Stenosis - R ICA 90% occluded per scan 05/2020 * Regular neuro checks and BP control, as above * Continue vascular protective medications: ASA, Zetia, Simvastatin 80, antihypertensives * High-dose simvastatin is noted to have appreciable CYP interactions; consider transitioning to other high potency statin as needed/tolerated Atrial Fibrillation * With mild RVR at present, rates 110-120 -- goal < 110 * Metoprolol 12.5mg PO b.i.d. * Continue Eliquis 2.5mg PO b.i.d. for anticoagulation (note- low dose because of renal function and ASA use, per review of cardiology notes) * On review of patient's chart, patient did have sinus pauses extending up to 3- 1/2 seconds when he was on event monitor, although these occurred at night and absence of RVR. Special consideration should be given to this if beta- blockade/rate control needs to be continued throughout hospital course/discharge. * Last echocardiogram 05/2020 - LVEF 60-65%. Moderate LVH, RVH. Bioprosthetic AV. * CCM Uncontrolled Hypertension * Postop goal SBP 160 or less * Review of chart does reveal baseline BPs ranging from 150-220s/50-100s * Blood pressures have had a similar range while here * Continue home hydralazine 100mg p.o. qAM / 50mg qHS * Metoprolol as above * Continue home Lasix 40mg PO b.i.d. * Add felodipine 2.5 mg every morning -- note, there is a contraindication to using amlodipine with high-dose simvastatin * Add lisinopril 10 mg twice daily * Remove A-line Respiratory - * Without significant history of pulmonary disease * Initially required small amounts of oxygen by nasal cannula, weaned without difficulty * No signs of volume overload in context of known h/o HFpEF * No ausculatory abnormalities on pulmonary exam * Continue incentive spirometry GI - * No concerns at present * Heart healthy, CC-diet RENAL/LYTES - * Known history of CKD Stage II - on chart review, baseline creatinine does appear to be around 1.5 * No significant electrolyte derangements on labs from earlier this week * BMP this morning demonstrating baseline creatinine and electrolyte stability - * No concerns at this time ENDO - Gout * No active disease * Continue home allopurinol Hypothyroidism * Continue home levothyroxine HEME - * Stable H&H * Anticoagulated with Eliquis ID - * Status post prophylactic perioperative Ancef * No other concerns at present INTEGUMENTARY - * Surgical scar c/d/i - pain control p.r.n. LINES/IV ACCESS - * PIV x 2 * Arterial line DVT PROPHYLAXIS - * Continue home Apixaban Thank you for allowing us to be part of this patient's care. Please refer to Dr. Daley's documentation for any further recommendations. (2) New onset atrial fibrillation: (3) Diastolic congestive heart failure, NYHA class 1: (4) Hypothyroidism: (5) Controlled type 2 diabetes mellitus with insulin therapy: (6) TIA (transient ischemic attack): (7) Carotid artery stenosis: (8) Hyperlipidemia: (9) Controlled type 2 diabetes mellitus with microalbuminuria: (10) Hypertension: (11) Chronic kidney disease, stage II (mild): Admission and Anticipated Discharge Date Admission Date: July 31, 2020 Supervising Physician Co-Signing Physician Notes Dr. Jason was the resident-physician during care of patient. I separately evaluated patient for apple portions of the history and the exam. I was present during the critical portion of medical decision making, and I discussed the case with the resident. I generally agree with the findings and plan except for any additions/exceptions noted. Patient seen and examined at bedside. No acute distress. Patient states is feeling better. Denies any neck pain. No chest pain, no shortness of breath, no headache. Able to tolerate food. No dysphagia. No blurry vision. Moving all the extremities appropriately. He did have some difficulty urinating yesterday and needed to be straight cathed twice but today he is urinating well. Right neck incision is clean. No hematoma surrounding the site. Patient does have decreased air entry bilaterally, incentive spirometry to be used aggressively. Irregular rhythm which is rate controlled now. Patient is still having issues with the blood pressure. He is getting hydralazine 100 in the morning 50 at night. He got amlodipine 10 as well as lisinopril 10 yesterday. I think he needs to be optimized for his blood pressure medication. Would not give any medication which has negative chronotropic effect given that he had sinus pauses on the Holter recently. I am going to start the patient on amlodipine 10 mg on a daily basis along with lisinopril 10 twice daily. He needs to follow-up with outpatient primary care to optimize his blood pressure medications. Patient is hemodynamically stable to be sent out of the ICU. Await vascular surgery recommendations. Please note the above document was generated using voice recognition software. It may contain grammatical, syntax or spelling errors.Any formal questions or concerns about the content, text or information contained within the body of this dictation should be directly addressed to the provider for clarification. Subjective Overall, patient reports feeling well this morning. He said that the intermittent catheterization was uncomfortable, but he did feel relief from it. 600 cc were drained after initial bladder scanning last night. He is able to void freely now. BPs have stayed persistently high, but have improved somewhat compared to yesterday. He was given his a.m. meds slightly early to facilitate trend towards goal BP. He denies any chest pain, palpitations, shortness of breath, changes in vision, headaches, new weakness, sensation changes. Good appetite. Review of Systems Review of Systems: As per HPI Physical Exam Physical Exam: General: 79yoM who is alert, oriented, and appears in no acute distress. Body habitus: obese HEENT: NCAT. See neuro exam below for eye exam. Mouth - MMM with no tonsillar edema or exudates. Surgical scar on R neck with evidence of dried blood, otherwise d/i. No appreciable JVD. Cardiac: Normal rate with irregular rhythm; S1 and S2 present with grade 2/6 ITARRA best heard at the RUSB that radiates to the left chest ( note - known h/o AVR in 2006 with bioprosthetic valve) Pulmonary: Good respiratory effort with symmetric expansion of the chest. No use of accessory muscles. Lungs were clear to auscultation bilaterally with no crackles or wheezes. Abdominal: Normoactive bowel sounds. Abdomen was soft, nondistended, and non- tender to palpation. Extremities: Upper and lower extremities are warm and well perfused. Radial pulses 2+. No peripheral edema appreciated in the lower extremities this morning. Neuro: - Cranial Nerves: CN I, IX, and X - not assessed. II - PERRL. III/IV/ - EOMs WNL. No nystagmus this morning. V - Facial sensation in tact in all three divisions; jaw opening WNL. VII - Patient is able to smile symmetrically and keep eyes close against resistance. VIII - Patient is able to hear finger snapping equally and appropriately. Patient is able to rotate head and shrug shoulders against resistance. XI - Soft palate raises equally and appropriately while saying "ah." XII - patient is able to stick out tongue and deviate from [id number] appropriately. - Motor: UE strength 4+ on R, 5/5 on left. LE - Hip, knee, and ankle strength is also 4+ on R, 5/5 on L on my exam. - Sensation: UE and LE sensation to light touch is grossly intact bilaterally. - Reflexes - Biceps 1+ b/l; brachioradialis 1+ b/l; patellar 1+ b/l. No clonus. - [id number]: WNL b/l. No dysmetria. Psych: Well-developed, well-nourished, appropriately dressed for occasion. Behavior is cooperative and appropriate. Affect is WNL. Insight is appropriate. Results & Data Results & Data ([facility]) Vital Signs (Past 12 Hours) Vital Signs Temp Pulse Resp BP Pulse Ox 08/01/20 06:20 68 15 191/95 H 97 08/01/20 05:36 82 17 199/98 H 95 08/01/20 04:00 80 164/85 H 08/01/20 03:20 77 15 192/103 H 97 08/01/20 02:21 82 17 189/87 H 97 08/01/20 01:21 80 16 164/85 H 97 08/01/20 01:00 70 20 98 08/01/20 00:20 78 14 177/103 H 97 08/01/20 00:00 76 15 97 07/31/20 23:21 77 17 170/97 H 96 07/31/20 23:00 70 17 98 07/31/20 22:48 36.7 C 07/31/20 22:20 81 26 H 189/97 H 97 07/31/20 22:00 94 H 17 95 07/31/20 21:20 85 18 160/106 H 97 07/31/20 21:00 97 H 18 96 08/01/20 04:52 08/01/20 04:52 Resident Activity Tracking Resident Involvement: Resident Care Provided Care Provided: Adult Hospital Medicine (1) Carotid artery stenosis Laterality: unspecified laterality Qualified Code(s): I65.29 - Occlusion and stenosis of unspecified carotid artery
[2020-08-01] MEDS ORDERED: FELODIPINE 2.5 MG TABCR PO ONE (08:30)
[2020-08-01] MEDS ORDERED: ACETAMINOPHEN 325 MG TAB PO PRN (08:35)
[2020-08-01] MEDS ORDERED: ACETAMINOPHEN 325 MG TAB ONE (08:36)
[2020-08-01] MEDS ORDERED: ICU PROTOCOL FOR HYPERGLYCEMIA SCH (09:00)
[2020-08-01] MEDS ORDERED: INSULIN GLARGINE SOLOSTAR 100 UNITS/ML 3 ML PEN SC SCH ×3 (09:00→11:30)
[2020-08-01] MEDS ORDERED: lisinopril 10 MG TAB PO SCH (09:00)
[2020-08-01] MEDS ORDERED: ASPIRIN 81 MG ECTAB PO SCH (09:00)
[2020-08-01] MEDS ORDERED: hydrALAZINE TAB 50 MG TAB PO SCH (09:00)
[2020-08-01] MEDS ORDERED: APIXABAN 2.5 MG TAB PO SCH (09:00)
[2020-08-01] MEDS ORDERED: amLODIPine BESYLATE 5 MG TAB PO SCH (09:00)
--- NOTE | 2020-08-01 09:30 | Billing Data ---
Date of Service August 01, 2020 Coding Level of Care Code 06578 Subseq Hosp Care Lvl 3
--- NOTE | 2020-08-01 11:27 | Pharmacy Report ---
Pharmacy Glycemic Short Note 2 - Date of Service August 01, 2020 - Glycemic Short BSG Results (Last 24 hours): 07/31/20 07/31/20 07/31/20 11:20 13:24 16:54 Glucose 225 H POC Glucose 79 107 H 07/31/20 07/31/20 08/01/20 20:20 22:08 04:52 Glucose 115 H POC Glucose 247 H 196 H 08/01/20 07:06 Glucose POC Glucose 124 H OUTPATIENT ANTIDIABETIC REGIMEN: * Tresiba 80 units Q AM * Trulicity 1.5mg SQ weekly * Glyburide 4mg PO BID ASSESSMENT: * Patient admitted to ICU following R CEA * Pharmacy was consulted for glycemic management by Throw Out Clerk * Yesterday patient received 40 units Tresiba pre-op, as well as Lantus 40 units HS due to BSGs in mid-200s following surgery * This AM fasting BSG down to 124. Lantus 20 units w/ breakfast ordered as last evening's dose of Lantus still on board. * Lantus 40 units x 1 ordered w/ lunch prior to discharge to enable patient to transition back to home dose of Tresiba. * Novolog CF and CR have performed well thus far PLAN FOR INPATIENT GLYCEMIC CONTROL: * Hold outpatient oral diabetes medications (glyburide, Trulicity) * Basal insulin * Lantus 20 units SQ this AM, then 40 units this afternoon. Will resume Lantus 80 units Q AM tomorrow. * Bolus insulin * NovoLog per scale ACHS or Q6hrs while NPO * Goal Range: Low 120 mg/dL - High 150 mg/dL * Correction Factor: 15 mg/dL/unit * Nutritional / Prandial insulin per carb ratio of 1 unit per 8 grams CHO consumed
[2020-08-01] MEDS ORDERED: INSULIN GLARGINE SOLOSTAR 100 UNITS/ML 3 ML PEN SC ONE (11:30)
--- NOTE | 2020-08-01 13:45 | Surgery Progress Note ---
Date of Service August 01, 2020 Assessment & Plan (1) Asymptomatic stenosis of right carotid artery: Pt now s/p R CEA. Doing well post op, no new neurological sx. Will d/c home today with his . Will see in office in 2 weeks. Admission and Anticipated Discharge Date Admission Date: July 31, 2020 Subjective 79 yo m POD #1 after R CEA, seen in f/u today. Pt admits mild discomfort in R neck. Denies unilateral weakness, amaurosis, difficulty swallowing or speaking. Denies SOB, chest pain, abd pain, N/V, other complaints. Review of Systems Review of Systems: All systems reviewed & are unremarkable except as noted in HPI & below Physical Exam Constitutional: WD/WN, vitals as above + obese and cooperative; not in distress Neck: R neck incision C/D/I, mild local ecchymosis/edema and very small hematoma noted. Respiratory: normal respiratory effort, lungs clear to auscultation Auscultation: + diminished lung sounds Cardiovascular: Rate/Rhythm: + irregularly irregular Vessels: femoral pulses present, posterior tibial pulses present, dorsalis pedis pulses present and radial pulses present; + abnormal peripheral pulses Extremities: normal capillary refill; no edema Gastrointestinal (Abdomen): normal bowel sounds, soft, nontender, no hepatosplenomegaly Musculoskeletal: no cyanosis or clubbing, extremities motor strength 5/5 Neurologic: moves all extremities and awake; no focal motor deficits and not confused Speech / Cognition: normal speech Psychiatric: A+Ox3, euthymic affect Results & Data ([facility]) Vital Signs (Past 12 Hours) Vital Signs Temp Pulse Pulse Pulse Resp BP BP 08/01/20 12:11 36.5 C 80 115 H 16 175/72 H 08/01/20 12:01 80 16 175/72 H 08/01/20 11:20 72 18 170/111 H 08/01/20 10:20 76 25 H 151/83 H 08/01/20 09:20 76 20 164/79 H 08/01/20 08:21 73 21 158/91 H 08/01/20 08:00 36.5 C 68 191/95 H 08/01/20 07:22 75 16 215/132 H 08/01/20 06:20 68 15 191/95 H 08/01/20 05:36 82 17 199/98 H 08/01/20 04:00 80 164/85 H 08/01/20 03:20 77 15 192/103 H 08/01/20 02:21 82 17 189/87 H Pulse Ox 08/01/20 12:11 91 08/01/20 12:01 89 L 08/01/20 11:20 89 L 08/01/20 10:20 93 08/01/20 09:20 87 L 08/01/20 08:21 93 08/01/20 08:00 08/01/20 07:22 94 08/01/20 06:20 97 08/01/20 05:36 95 08/01/20 04:00 08/01/20 03:20 97 08/01/20 02:21 97
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
[2020-08-02] MEDS ORDERED: INSULIN GLARGINE SOLOSTAR 100 UNITS/ML 3 ML PEN SC SCH (09:00)
== END 2020-08-01 14:48 | disposition home or self-care (01) | DRG 37 ==
LOC: ASU 06:14 → 1E 12:17

== ENCOUNTER 2020-08-06 11:27 | Inpatient (IN) ==
[2020-08-06] MEDS ORDERED: STAT IV Infusion **Titration per Protocol STA (11:58)
[2020-08-06] MEDS ORDERED: dilTIAZem HCl 5 MG/ML 5 ML VIAL IV STA (11:58)
[2020-08-06] MEDS ORDERED: dilTIAZem HCL 125 MG in DEXTROSE 5% 100 ML IV SCH (12:00)
[2020-08-06 12:12] LABS: Basophils # (auto) 0.01 K/uL (0-0.2); Basophils % (auto) 0.1 %; Eosinophils # (auto) 0.11 K/uL (0-0.5); Eosinophils % (auto) 1.2 %; Hematocrit (blood only) 41.4 % (42-52); Hemoglobin 13.5 g/dL (14.0-18.0); Immature Granulocytes # (auto) 0.02 K/uL (0.00-0.02); Immature Granulocytes % (auto) 0.2 %; Lymphocytes # (auto) 1.22 K/uL (1.2-3.4); Lymphocytes % (auto) 12.8 %; Mean Corpuscular Hemoglobin 30.3 pg (25-34); Mean Corpuscular Hgb Conc 32.6 g/dL (32-36); Mean Platelet Volume 12.1 fL (7.4-10.4); Monocytes # (auto) 0.89 K/uL (0.11-0.59); Monocytes % (auto) 9.4 %; Neutrophils # (auto) 7.25 K/uL (1.4-6.5); Neutrophils % (auto) 76.3 %; Platelet Count 283 K/uL (130-400); RDW Coefficient of Variation 15.3 % (11.5-14.5); RDW Standard Deviation 51.6 fL (36.4-46.3); Red Blood Count 4.45 M/uL (4.7-6.1)
[2020-08-06] MEDS: MAGNESIUM SULFATE / D5W 1 GM/100 ML BAG IV SCH ×4 (12:13→13:26)
--- NOTE | 2020-08-06 12:16 | XRay Report ---
XR chest 1V portable CLINICAL HISTORY: Chest Pain COMPARISON STUDY: Chest radiograph July 24, 2020. FINDINGS: There are median sternotomy wires. Electronic device projects over the chest. Moderate card iomegaly is noted. There may be subtle left lung airspace opacity. No pneumothorax or pleural effusio n is noted. IMPRESSION: 1. Possible subtle left airspace opacity. This could reflect an infectious process. 2. Cardiomegaly. ACT 112: Negative or not required by law. Electronically signed by: Pavel Nuñez M.D. 08/06/2020 12:15 PM
[2020-08-06 12:28] LABS: INR 1.1 (0.9-1.1); Partial Thromboplastin Ratio 1.1; Partial Thromboplastin Time 29.9 Seconds (21.0-31.0); Prothrombin Time 11.4 Seconds (9.0-12.0)
[2020-08-06 12:32] LABS: Albumin Level 3.1 gm/dl (3.4-5.0); BUN Creatinine Ratio 24.7 (10-20); Calcium 9.4 mg/dl (8.5-10.1); Creatinine Clr Calc Pharmacy 51.9 ml/min; Est GFR (African American) 50.2; Est GFR (Non-African American) 43.3
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
[2020-08-06 13:01] LABS: Albumin Globulin Ratio 0.8 (0.9-2); Creatine Kinase MB 2.3 ng/ml (0.5-3.6); Globulin 3.7 gm/dl (2.5-4.0); Total Protein 6.8 gm/dl (6.4-8.2); Troponin I 0.056 ng/ml (0-0.045)
[2020-08-06] MEDS ORDERED: METOPROLOL TARTRATE 25 MG TAB PO STA (13:15)
--- NOTE | 2020-08-06 14:52 | Electrocardiogram Report ---
Test Reason : Blood Pressure : / mmHG Vent. Rate : 161 BPM Atrial Rate : 163 BPM P-R Int : 000 ms QRS Dur : 128 ms QT Int : 310 ms P-R-T Axes : 000 -50 120 degrees QTc Int : 507 ms Atrial fibrillation with rapid ventricular response Left axis deviation Left ventricular hypertrophy with QRS widening T wave abnormality, consider lateral ischemia Abnormal ECG When compared with ECG of 02-JUN-2020 14:45, Vent. rate has increased BY 80 BPM QRS duration has increased Nonspecific T wave abnormality no longer evident in Inferior leads Confirmed by Salomón Masterson ([id number]) on 08/06/2020 2:51:35 PM Referred By: REFERRED SELF Confirmed By:Salomón Masterson
--- NOTE | 2020-08-06 14:56 | Emergency Department Note ---
Impression & Plan Atrial fibrillation with rapid ventricular response ED Provider Note NAME: TOMMY FRAGOSO AGE: 79 SEX: M : 1940 ARRIVES VIA: Ambulance INFORMANT: Patient, , EMS ED PROVIDER(S): Reynaldo Carrillo MD CHIEF COMPLAINT: Shortness of breath HPI: This is an 79-year-old male who recently had a right sided endarterectomy performed that presents the emergency department complaining of shortness of breath that has been ongoing for the past 2 days. EMS arrived to find the patient in atrial fibrillation. The patient denies being in atrial fibrillation previously. He denies any chest pain or shortness of breath. He reports movement makes the shortness of breath worse however rest makes it better. He reports the oxygen that EMS gave him is making the shortness of breath better. He was also given 15 mg of Cardizem in route to the emergency department. ROS: See above HPI for pertinent positives & negatives. A total of 10 systems reviewed and were otherwise negative. PAST MEDICAL HISTORY: See Below PAST SURGICAL HISTORY: See Below FAMILY HISTORY: See Below SOCIAL HISTORY: See Below HOME MEDICATIONS: See Below ALLERGIES: See Below VITALS: See Below PHYSICAL EXAMINATION: VITAL SIGNS - Vital signs and nursing notes were reviewed. GENERAL - 79-year-old male appearing stated age who is in no acute distress. Communicates well with provider and answers questions appropriately. SKIN - Rt surgical site appears to be healing well HEAD - NC/AT. EYES - PERRL with EOMI bilaterally. Sclera anicteric. Palpebral conjunctiva pink and moist with no injection noted. EARS - No deformities of external structures noted on gross examination bilaterally. NOSE - Midline and without cyanosis. No epistaxis or purulent drainage noted. Septum midline without deviation or septal hematoma noted. MOUTH/OROPHARYNX - Without perioral cyanosis. Buccal mucosa pink and moist and without leukoplakia. Tongue midline with equal elevation of palate bilaterally. No tonsillar hypertrophy, erythema, or exudates noted. NECK - Neck with FROM. Supple to palpation. No nuchal rigidity. LUNGS - Chest wall symmetric without accessory muscle use, intercostals retractions, or central cyanosis. Normal vesicular breath sounds CTA B/L. No wheezes, rales, or rhonchi appreciated. CARDIAC - RRR with S1/S2. No murmur, rubs, or gallops appreciated. ABDOMEN - Abdominal contour without pulsations or visible masses. BS normoactive all four quadrants. No tenderness, palpable masses, he patosplenomegaly, or ascites noted. EXTREMITIES - No clubbing or peripheral cyanosis. No pretibial edema present. +3/5 radial, posterior tibial, and dorsalis pedis pulses palpated throughout. +5/5 strength noted in UE/LE bilaterally. NEUROLOGIC - Cranial nerves II through XII grossly intact. Sensory intact to light touch throughout. Patellar reflexes +2/4. PSYCH - A&Ox3 and cooperates fully with examiner. Pt is very pleasant and interacts well with examiner. MEDICAL DECISION MAKING: Patient was seen and evaluated as above in room B7. Review was performed of nursing notes and vital signs. I did review pertinent previous visits and patient history. After obtaining a thorough history and physical examination the above work up was performed. This is an 79-year-old male who presents emergency department with A. fib with RVR. The patient has already been given a dose of Cardizem by EMS however his heart rate continues to be 160. He was given an additional dose here in the emergency department which caused his heart rate to drop into the 70s. He was then placed on a Cardizem drip. He was also given 4 g of magnesium here in the emergency department. Patient's troponin is elevated I do feel that this is most likely from demand ischemia. I did discuss the case with the hospitalist service who did agree to meet the patient An order was placed for continuous cardiac monitoring. The monitor shows a rate of 115 with afib rhythm. The patient was evaluated during a period of high volume and high acuity during the global COVID-19 pandemic, and that diagnosis was suspected/considered upon their initial presentation. Their evaluation, treatment and testing was consist ent with current guidelines for patients who present with complaints or symptoms that may be related to COVID-19. Patient was seen while provider was wearing PPE. Triage Nursing notes reviewed. Prior medical records reviewed Vital Signs: reviewed and remarkable for no significant abnormalities Differential diagnosis: Cardiac ischemia, aortic dissection, pulmonary embolism, pneumothorax, p neumonia, pericarditis, myocarditis, esophageal rupture, GERD, cholecystitis, pancreatitis, musculoskeletal, as well as other pathologies. ER treatment provided: See below Diagnostics interpreted by me: ECG: EKG shows an A. fib with RVR left axis deviation left ventricular hypertrophy with QRS widening no ST elevation or depression QTC is 507 ventricular rate is 161; EKG is compared to 06/02/2020 ventricular rate has increased by 80 Laboratory studies: As stated above and show below. Imaging studies: See below Consultation(s): Internal Medicine Critical Care: I have personally spent greater than 30 minutes of critical care time in the direct management of this patient. This includes bedside care, interpretation of diagnostic studies, and testing, discussion with consultants, patient, and family members, and other required patient management activities. This 30 minut es is in excess of all separately billable procedures. Past Med/Surg History Medical History (Updated 08/06/20 @ 14:56 by Reynaldo Carrillo MD) Atrial fibrillation Recent diagnosis > on Apixaban Carotid artery stenosis CHF (congestive heart failure) Chronic kidney disease, stage II (mild) Diabetes mellitus, type 2 IDDM H/O: CVA (cerebrovascular accident) 2005 > no residual effects History of aortic valve disease s/p bioprosthetic AVR (2006) History of basal cell carcinoma History of SCC (squamous cell carcinoma) of skin Hyperlipidemia Hypothyroidism Transient ischemic attack (TIA) 06/02/20 > on Eliquis Surgical History (Updated 08/06/20 @ 13:33 by Rome Werner MD) History of cataract surgery R/L History of nasal septoplasty History of tooth extraction Hx of vasectomy S/P aortic valve replacement with bioprosthetic valve (2006) Status post carotid endarterectomy 07/2020 Family History Mother Cancer Family history of diabetes mellitus Father Tobacco use Other No family history of adverse response to anesthesia Denies family history of Ovarian cancer Prostate cancer Myocardial infarction Breast cancer Colorectal cancer Social History Smoking Status: Never smoker Second Hand Exposure: No; Hx Alcohol Use: No Hx Substance Use: No Preferred Language: Citizen Of [place] Communication Ability: Effective Visual Impairment: No Limitations Hearing Ability: Normal Sugar Sampler Required: No Beliefs That Will Affect Care: None marital status: Current Living Situation: Spouse current occupational status: retired Feels Safe at Home: Yes Childhood Exposure to Second-Hand Smoke: Yes Dental Care, Regularly: Yes Physical Activity Frequency: Does not Exercise Seatbelt Use: sometimes Sunscreen Use: No Assistive Devices: Glasses Allergies Allergies Allergy/AdvReac Type Severity Reaction Status Date / Time levofloxacin Allergy Mild Rash, Verified 08/06/20 11:51 Pruritus Home Meds Home Medications Medication Instructions Recorded Confirmed Tresiba FlexTouch U-100 80 unit SQ QAM 06/02/20 08/06/20 allopurinol 300 mg PO PM 06/02/20 08/06/20 aspirin [Adult Aspirin Regimen] 81 mg PO QAM 06/02/20 08/06/20 ezetimibe [Zetia] 10 mg PO PM 06/02/20 08/06/20 docusate sodium 100 mg tablet 300 mg PO DAILY tab 07/12/20 08/06/20 metoprolol tartrate 12.5 mg PO BID 07/31/20 08/06/20 Previous Rx's Medication Instructions Recorded dulaglutide 1.5 mg/0.5 mL 1.5 mg SQ .COMPLEX #6 ml 12/05/19 subcutaneous pen injector glimepiride 4 mg tablet 4 mg PO BID #180 tab 12/12/19 furosemide 40 mg tablet 40 mg PO BID #180 tab 02/27/20 ergocalciferol (vitamin D2) 1,250 50,000 unit PO MONTHLY #12 cap 03/05/20 mcg (50,000 unit) capsule simvastatin 80 mg tablet 80 mg PO QPM #90 tab 03/16/20 hydralazine 50 mg tablet See Rx Instructions .ROUTE 06/04/20 .COMPLEX #270 tab levothyroxine 50 mcg tablet 50 mcg PO DAILY #90 tab 06/04/20 apixaban 2.5 mg tablet 2.5 mg PO BID #60 tab 06/26/20 oxycodone-acetaminophen [Percocet] 1 - 2 tab PO Q4H PRN #20 tab 08/01/20 Results & Data (ED) Vital Signs Vital Signs - 24 hr 08/06/20 11:33 08/06/20 11:35 08/06/20 11:42 Temperature 36.7 C Temperature Source Oral Pulse Rate 165 H 135 H 163 H Pulse Rate from SpO2 Sensor 166 H 124 H Pulse Rhythm Irregular Respiratory Rate 17 20 16 Respiratory Effort / Characteristics Non-Labored Respiratory Depth Normal Respiratory Pattern Regular Blood Pressure 185/107 H 185/107 H Blood Pressure Mean 133 133 Blood Pressure Position Lying Pulse Oximetry 96 95 95 Oxygen Delivery Method Room Air Sepsis Recent Fever Within 48 Hours No Sepsis New/Unexplained Change in Mental Status N/A Sepsis Action Taken by Nursing No Action Required 08/06/20 11:45 08/06/20 12:00 08/06/20 12:05 Temperature Temperature Source Pulse Rate 125 H 130 H 121 H Pulse Rate from SpO2 Sensor 150 H 141 H 148 H Pulse Rhythm Respiratory Rate 21 22 20 Respiratory Effort / Characteristics Respiratory Depth Respiratory Pattern Blood Pressure 140/85 175/98 H Blood Pressure Mean 103 123 Blood Pressure Position Pulse Oximetry 95 93 92 Oxygen Delivery Method Sepsis Recent Fever Within 48 Hours Sepsis New/Unexplained Change in Mental Status Sepsis Action Taken by Nursing 08/06/20 12:15 08/06/20 12:29 08/06/20 12:30 Temperature Temperature Source Pulse Rate 151 H 75 96 H Pulse Rate from SpO2 Sensor 156 H 77 103 H Pulse Rhythm Respiratory Rate 14 21 18 Respiratory Effort / Characteristics Respiratory Depth Respiratory Pattern Blood Pressure 162/74 H 162/80 H Blood Pressure Mean 103 107 Blood Pressure Position Pulse Oximetry 94 94 95 Oxygen Delivery Method Sepsis Recent Fever Within 48 Hours Sepsis New/Unexplained Change in Mental Status Sepsis Action Taken by Nursing 08/06/20 12:45 08/06/20 13:00 08/06/20 13:01 Temperature Temperature Source Pulse Rate 113 H 123 H 108 H Pulse Rate from SpO2 Sensor 121 H 131 H 119 H Pulse Rhythm Respiratory Rate 18 23 16 Respiratory Effort / Characteristics Respiratory Depth Respiratory Pattern Blood Pressure 167/105 H Blood Pressure Mean 125 Blood Pressure Position Pulse Oximetry 92 90 91 Oxygen Delivery Method Sepsis Recent Fever Within 48 Hours Sepsis New/Unexplained Change in Mental Status Sepsis Action Taken by Nursing 08/06/20 13:15 08/06/20 13:30 08/06/20 13:31 Temperature Temperature Source Pulse Rate 133 H 127 H 141 H Pulse Rate from SpO2 Sensor 135 H 154 H 131 H Pulse Rhythm Respiratory Rate 26 H 12 18 Respiratory Effort / Characteristics Respiratory Depth Respiratory Pattern Blood Pressure 139/112 H Blood Pressure Mean 121 Blood Pressure Position Pulse Oximetry 94 95 96 Oxygen Delivery Method Sepsis Recent Fever Within 48 Hours Sepsis New/Unexplained Change in Mental Status Sepsis Action Taken by Nursing 08/06/20 13:45 08/06/20 14:00 08/06/20 14:01 Temperature Temperature Source Pulse Rate 107 H 96 H 109 H Pulse Rate from SpO2 Sensor 130 H 106 H 108 H Pulse Rhythm Respiratory Rate 17 11 L 15 Respiratory Effort / Characteristics Respiratory Depth Respiratory Pattern Blood Pressure 160/93 H Blood Pressure Mean 115 Blood Pressure Position Pulse Oximetry 96 95 97 Oxygen Delivery Method Sepsis Recent Fever Within 48 Hours Sepsis New/Unexplained Change in Mental Status Sepsis Action Taken by Nursing 08/06/20 14:15 08/06/20 14:30 08/06/20 14:31 Temperature Temperature Source Pulse Rate 122 H 86 115 H Pulse Rate from SpO2 Sensor 124 H 89 110 H Pulse Rhythm Respiratory Rate 16 21 24 Respiratory Effort / Characteristics Respiratory Depth Respiratory Pattern Blood Pressure 173/100 H Blood Pressure Mean 124 Blood Pressure Position Pulse Oximetry 97 95 96 Oxygen Delivery Method Sepsis Recent Fever Within 48 Hours Sepsis New/Unexplained Change in Mental Status Sepsis Action Taken by Nursing Laboratory Data Result diagrams: 08/06/20 11:39 08/06/20 11:39 Lab Results 08/06/20 08/06/20 08/06/20 Range/Units 11:39 11:39 11:39 WBC 9.50 (4.8-10.8) K/uL RBC 4.45 L (4.7-6.1) M/uL Hgb 13.5 L (14.0-18.0) g/dL Hct 41.4 L (42-52) % MCV 93.0 (80-100) fL MCH 30.3 (25-34) pg MCHC 32.6 (32-36) g/dL RDW Std Deviation 51.6 H (36.4-46.3) fL RDW Coeff of Omar 15.3 H (11.5-14.5) % Plt Count 283 (130-400) K/uL MPV 12.1 H (7.4-10.4) fL Immature Gran % (Auto) 0.2 % Neut % (Auto) 76.3 % Lymph % (Auto) 12.8 % Dillon % (Auto) 9.4 % Eos % (Auto) 1.2 % Baso % (Auto) 0.1 % Neut # (Auto) 7.25 H (1.4-6.5) K/uL Lymph # (Auto) 1.22 (1.2-3.4) K/uL Dillon # (Auto) 0.89 H (0.11-0.59) K/uL Eos # (Auto) 0.11 (0-0.5) K/uL Baso # (Auto) 0.01 (0-0.2) K/uL Immature Gran # (Auto) 0.02 (0.00-0.02) K/uL PT 11.4 (9.0-12.0) Seconds INR 1.1 (0.9-1.1) APTT 29.9 (21.0-31.0) Seconds PTT Ratio 1.1 Sodium 139 (136-145) mmol/L Potassium 4.0 (3.5-5.1) mmol/L Chloride 106 (98-107) mmol/L Carbon Dioxide 25 (21-32) mmol/L Anion Gap 9.0 (3-11) BUN 37 H (7-18) mg/dl Creatinine 1.50 H (0.6-1.4) mg/dl Est Cr Clr Drug Dosing 51.9 ml/min Est GFR ( Amer) 50.2 Est GFR (Non-Af Amer) 43.3 BUN/Creatinine Ratio 24.7 H (10-20) Glucose 191 H (70-99) mg/dl Calcium 9.4 (8.5-10.1) mg/dl Total Bilirubin 1.0 (0.2-1) mg/dl AST 19 (15-37) U/L ALT 16 (12-78) U/L Alkaline Phosphatase 92 (45-117) U/L Total Creatine Kinase 49 (39-308) U/L CK-MB (CK-2) 2.3 (0.5-3.6) ng/ml CK/CKMB % Calc 4.7 H (0-3.0) Troponin I 0.056 H* (0-0.045) ng/ml Total Protein 6.8 (6.4-8.2) gm/dl Albumin 3.1 L (3.4-5.0) gm/dl Globulin 3.7 (2.5-4.0) gm/dl Albumin/Globulin Ratio 0.8 L (0.9-2) Lipase 66 L (73-393) U/L COVID-19 Eval Order 08/06/20 Range/Units 14:34 WBC (4.8-10.8) K/uL RBC (4.7-6.1) M/uL Hgb (14.0-18.0) g/dL Hct (42-52) % MCV (80-100) fL MCH (25-34) pg MCHC (32-36) g/dL RDW Std Deviation (36.4-46.3) fL RDW Coeff of Omar (11.5-14.5) % Plt Count (130-400) K/uL MPV (7.4-10.4) fL Immature Gran % (Auto) % Neut % (Auto) % Lymph % (Auto) % Dillon % (Auto) % Eos % (Auto) % Baso % (Auto) % Neut # (Auto) (1.4-6.5) K/uL Lymph # (Auto) (1.2-3.4) K/uL Dillon # (Auto) (0.11-0.59) K/uL Eos # (Auto) (0-0.5) K/uL Baso # (Auto) (0-0.2) K/uL Immature Gran # (Auto) (0.00-0.02) K/uL PT (9.0-12.0) Seconds INR (0.9-1.1) APTT (21.0-31.0) Seconds PTT Ratio Sodium (136-145) mmol/L Potassium (3.5-5.1) mmol/L Chloride (98-107) mmol/L Carbon Dioxide (21-32) mmol/L Anion Gap (3-11) BUN (7-18) mg/dl Creatinine (0.6-1.4) mg/dl Est Cr Clr Drug Dosing ml/min Est GFR ( Amer) Est GFR (Non-Af Amer) BUN/Creatinine Ratio (10-20) Glucose (70-99) mg/dl Calcium (8.5-10.1) mg/dl Total Bilirubin (0.2-1) mg/dl AST (15-37) U/L ALT (12-78) U/L Alkaline Phosphatase (45-117) U/L Total Creatine Kinase (39-308) U/L CK-MB (CK-2) (0.5-3.6) ng/ml CK/CKMB % Calc (0-3.0) Troponin I (0-0.045) ng/ml Total Protein (6.4-8.2) gm/dl Albumin (3.4-5.0) gm/dl Globulin (2.5-4.0) gm/dl Albumin/Globulin Ratio (0.9-2) Lipase (73-393) U/L COVID-19 Eval Order CovFluRsv at [facility] Administered Medications Diltiazem HCl 125 mg/ Dextrose 125 mls @ 10 mls/hr IV .[id number] CHARLI; Protocol Stop: 09/05/20 11:59 Last Titration: 08/06/20 13:02 Dose: 10 mg/hr, 10 mls/hr Documented by: [id number] Cosigned by: [id number] Admin: 08/06/20 12:40 Dose: 5 mg/hr, 5 mls/hr Documented by: [id number] Cosigned by: [id number] Discontinued Medications Diltiazem HCl (Diltiazem Hcl 5 Mg/Ml 5 Ml Vial) 30 mg IV NOW STA Stop: 08/06/20 11:59 Last Admin: 08/06/20 12:28 Dose: 30 mg Documented by: [id number] Cosigned by: [id number] Magnesium Sulfate/Dextrose (Magnesium Sulfate / D5w) 1 gm in 100 mls @ 200 mls/hr IV Q30M CHARLI Stop: 08/06/20 12:50 Last Infusion: 08/06/20 14:31 Dose: 0 mls/hr Documented by: [id number] Admin: 08/06/20 13:25 Dose: 200 mls/hr Documented by: [id number] Infusion: 08/06/20 12:43 Dose: 0 mls/hr Documented by: [id number] Admin: 08/06/20 12:13 Dose: 200 mls/hr Documented by: [id number] Magnesium Sulfate/Dextrose (Magnesium Sulfate / D5w) 1 gm in 100 mls @ 200 mls/hr IV Q30M CHARLI Stop: 08/06/20 12:50 Last Infusion: 08/06/20 14:31 Dose: 0 mls/hr Documented by: [id number] Admin: 08/06/20 13:26 Dose: 200 mls/hr Documented by: [id number] Infusion: 08/06/20 12:43 Dose: 0 mls/hr Documented by: [id number] Admin: 08/06/20 12:13 Dose: 200 mls/hr Documented by: [id number] Metoprolol Tartrate (Metoprolol Tartrate 25 Mg Tab) 12.5 mg PO ONE STA Stop: 08/06/20 13:16 Last Admin: 08/06/20 14:19 Dose: 12.5 mg Documented by: [id number] Miscellaneous (Stat Iv Infusion Titration Per Protocol) 1 ea N/A NOW STA Stop: 08/06/20 11:59 Last Admin: 08/06/20 12:48 Dose: Not Given Documented by: [id number] Imaging Data Radiologist's Impression: Chest X-Ray 08/06/20 11:50 XR chest 1V portable CLINICAL HISTORY: Chest Pain COMPARISON STUDY: Chest radiograph July 24, 2020. FINDINGS: There are median sternotomy wires. Electronic device projects over the chest. Moderate cardiomegaly is noted. There may be subtle left lung airspace opacity. No pneumothorax or pleural effusion is noted. IMPRESSION: 1. Possible subtle left airspace opacity. This could reflect an infectious process. 2. Cardiomegaly. ACT 112: Negative or not required by law. Electronically signed by: Pavel Nuñez M.D. 08/06/2020 12:15 PM Discharge Plan Visit Data Chief Complaint: Cardiac Assessment ED Provider: Reynaldo Carrillo Discharge Problem: Atrial fibrillation with rapid ventricular response Forms Stand Alone Forms: [facility] Prescriptions Prescriptions: No Action Trulicity 1.5 mg/0.5 mL pen injector 1.5 mg SQ .COMPLEX Qty: 6 RF: 3 glimepiride 4 mg tablet 4 mg PO BID Qty: 180 RF: 3 furosemide 40 mg tablet 40 mg PO BID Qty: 180 RF: 3 ergocalciferol (vitamin D2) 1,250 mcg (50,000 unit) capsule 50,000 unit PO MONTHLY Qty: 12 RF: 1 simvastatin 80 mg tablet 80 mg PO QPM Qty: 90 RF: 3 hydralazine 50 mg tablet See Rx Instructions .ROUTE .COMPLEX Qty: 270 RF: 3 levothyroxine 50 mcg tablet 50 mcg PO DAILY Qty: 90 RF: 3 Eliquis 2.5 mg tablet 2.5 mg PO BID Qty: 60 RF: 5 docusate sodium 100 mg tablet 300 mg PO DAILY RF: 0 aspirin [Adult Aspirin Regimen] 81 mg tablet,delayed release (DR/EC) 81 mg PO QAM RF: 0 allopurinol 300 mg tablet 300 mg PO PM RF: 0 ezetimibe [Zetia] 10 mg tablet 10 mg PO PM RF: 0 Tresiba FlexTouch U-100 100 unit/mL (3 mL) insulin pen 80 unit SQ QAM RF: 0 metoprolol tartrate 25 mg Tablet 12.5 mg PO BID RF: 0 oxycodone-acetaminophen [Percocet] 5-325 mg Tablet 1 - 2 tab PO Q4H PRN (Reason: Pain) Qty: 20 RF: 0
[2020-08-06 15:24] LABS: Influenza A virus by PCR Negative (Neg); Influenza B virus by PCR Negative (Neg); RSV by PCR Negative (Neg); SARS CoV2 RNA(COVID-19) InHosp NEGATIVE (Negative)
[2020-08-06] MEDS ORDERED: GLUCAGON FOR INJ 1 MG VIAL SQ PRN (15:37)
[2020-08-06] MEDS ORDERED: DEXTROSE 50% 50 ML SYRINGE IV PRN (15:37)
[2020-08-06] MEDS ORDERED: GLUCOSE 10 TABS/TUBE PO PRN (15:37)
[2020-08-06] MEDS ORDERED: ONDANSETRON INJ 2 MG/ML 2 ML VIAL IV PRN (15:37)
[2020-08-06] MEDS ORDERED: oxyCODONE/ACETAMINOPHEN 5mg/325mg TAB PO PRN (15:37)
[2020-08-06] MEDS ORDERED: NON-FORMULARY MEDICATION (Dulaglutide [Trulicity] 1.5 mg/0.5 mL pen injector) SQ SCH (15:37)
[2020-08-06] MEDS ORDERED: CARBOHYDRATES FOR HYPOGLYCEMIA PO PRN (15:37)
[2020-08-06] MEDS ORDERED: ACETAMINOPHEN 325 MG TAB PO PRN (15:37)
[2020-08-06] MEDS ORDERED: POLYETHYLENE (MIRALAX) 17 GM PACK PO PRN (15:37)
[2020-08-06] MEDS ORDERED: PNEUMOCOCCAL ADMINISTRATION CHARGE ONE (17:48)
[2020-08-06] MEDS ORDERED: PNEUMOCOCCAL POLYSACCHARIDES 25 MCG/0.5 ML VIAL/SYR IM ONE (17:48)
[2020-08-06] MEDS: FUROSEMIDE 40 MG TAB PO SCH (18:42)
[2020-08-06] MEDS: GLIMEPIRIDE 2 MG TAB PO SCH (18:43)
[2020-08-06] MEDS: allopurinoL 300 MG TAB PO SCH (21:59)
[2020-08-06] MEDS: EZETIMIBE 10 MG TABLET PO SCH (22:00)
[2020-08-06] MEDS: APIXABAN 2.5 MG TAB PO SCH (22:00)
[2020-08-06] MEDS: hydrALAZINE TAB 50 MG TAB PO SCH (22:00)
[2020-08-06] MEDS: SIMVASTATIN 80 MG TAB PO SCH (22:00)
[2020-08-06] MEDS: METOPROLOL TARTRATE 25 MG TAB PO SCH (22:00)
[2020-08-07] MEDS: LEVOTHYROXINE SODIUM 50 MCG TABLET PO SCH (06:20)
[2020-08-07] MEDS: FUROSEMIDE 40 MG TAB PO SCH ×2 (08:32→16:28)
[2020-08-07] MEDS: APIXABAN 2.5 MG TAB PO SCH (08:32)
[2020-08-07] MEDS: METOPROLOL TARTRATE 25 MG TAB PO SCH ×2 (08:32→22:17)
[2020-08-07] MEDS: GLIMEPIRIDE 2 MG TAB PO SCH ×2 (08:32→16:21)
[2020-08-07] MEDS: ASPIRIN 81 MG ECTAB PO SCH (08:32)
[2020-08-07] MEDS: DOCUSATE SODIUM 100 MG CAP PO SCH (08:33)
[2020-08-07] MEDS: hydrALAZINE TAB 50 MG TAB PO SCH ×2 (08:34→22:18)
[2020-08-07] MEDS ORDERED: INSULIN GLARGINE SOLOSTAR 100 UNITS/ML 3 ML PEN SC SCH (09:00)
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
[2020-08-07] MEDS: allopurinoL 300 MG TAB PO SCH (22:17)
[2020-08-07] MEDS: EZETIMIBE 10 MG TABLET PO SCH (22:17)
[2020-08-07] MEDS: SIMVASTATIN 80 MG TAB PO SCH (22:18)
[2020-08-08] MEDS: LEVOTHYROXINE SODIUM 50 MCG TABLET PO SCH (06:08)
[2020-08-08 06:36] LABS: Hematocrit (blood only) 40.4 % (42-52); Mean Corpuscular Hemoglobin 29.8 pg (25-34); Mean Corpuscular Hgb Conc 32.2 g/dL (32-36); Mean Corpuscular Volume 92.7 fL (80-100); Mean Platelet Volume 11.5 fL (7.4-10.4); Platelet Count 233 K/uL (130-400); RDW Coefficient of Variation 15.1 % (11.5-14.5); RDW Standard Deviation 51.4 fL (36.4-46.3); Red Blood Count 4.36 M/uL (4.7-6.1); White Blood Count 9.31 K/uL (4.8-10.8)
[2020-08-08 07:11] LABS: BUN Creatinine Ratio 22.3 (10-20); Calcium 8.7 mg/dl (8.5-10.1); Creatinine Clr Calc Pharmacy 52.8 ml/min; Est GFR (African American) 52.3; Est GFR (Non-African American) 45.2
[2020-08-08 07:54] LABS: Magnesium 2.5 mg/dl (1.8-2.4)
[2020-08-08] MEDS: hydrALAZINE TAB 50 MG TAB PO SCH ×2 (08:54→22:04)
[2020-08-08] MEDS: DOCUSATE SODIUM 100 MG CAP PO SCH (08:54)
[2020-08-08] MEDS: ASPIRIN 81 MG ECTAB PO SCH (08:54)
[2020-08-08] MEDS: METOPROLOL TARTRATE 25 MG TAB PO SCH ×2 (08:55→22:03)
[2020-08-08] MEDS: FUROSEMIDE 40 MG TAB PO SCH ×2 (08:55→16:49)
[2020-08-08] MEDS ORDERED: INSULIN GLARGINE SOLOSTAR 100 UNITS/ML 3 ML PEN SC SCH ×2 (09:00)
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
[2020-08-08] MEDS: SIMVASTATIN 80 MG TAB PO SCH (22:03)
[2020-08-08] MEDS: allopurinoL 300 MG TAB PO SCH (22:04)
[2020-08-08] MEDS: EZETIMIBE 10 MG TABLET PO SCH (22:04)
[2020-08-09] MEDS ORDERED: ceFAZolin 2000MG 2,000 MG/15 ML SYR IV SCH (06:00)
[2020-08-09] MEDS: LEVOTHYROXINE SODIUM 50 MCG TABLET PO SCH (06:28)
[2020-08-09 06:48] LABS: BUN Creatinine Ratio 23.5 (10-20); Calcium 8.4 mg/dl (8.5-10.1); Creatinine Clr Calc Pharmacy 51.1 ml/min; Est GFR (African American) 50.6; Est GFR (Non-African American) 43.7
[2020-08-09] MEDS: GLUCOSE 40% GEL 15 GM TUBE PO PRN ×2 (07:24→11:35)
[2020-08-09] MEDS ORDERED: LACTATED RINGER'S 1,000 ML IV SCH (08:00)
[2020-08-09] MEDS: ASPIRIN 81 MG ECTAB PO SCH (08:57)
[2020-08-09] MEDS: FUROSEMIDE 40 MG TAB PO SCH ×2 (08:58→18:16)
[2020-08-09] MEDS: METOPROLOL TARTRATE 25 MG TAB PO SCH (08:58)
[2020-08-09] MEDS: hydrALAZINE TAB 50 MG TAB PO SCH ×4 (08:58→21:42)
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
[2020-08-09] MEDS: DOCUSATE SODIUM 100 MG CAP PO SCH (09:52)
[2020-08-09] MEDS ORDERED: D5W AND LACTATED RINGERS 1,000 ML IV SCH (12:00)
[2020-08-09] MEDS ORDERED: hydrALAZINE HCL 20 MG/ML VIAL IV STA (12:03)
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
[2020-08-09] MEDS ORDERED: LIDOCAINE HCL 1% 20 ML VIAL ONE (14:35)
[2020-08-09] MEDS ORDERED: BACITRACIN INJ 50,000 UNIT VIAL ONE (14:35)
[2020-08-09] MEDS ORDERED: BACITRACIN OINT 0.9 GM PKT ONE (14:35)
--- NOTE | 2020-08-09 16:18 | Pre Anesthesia Assessment ---
Date of Service August 09, 2020 Pre Sedation Assessment Vital Signs Temp Pulse Pulse Resp BP BP Pulse Ox 08/09/20 11:24 36.6 C 70 18 189/92 H 195/77 H 93 08/09/20 08:00 68 08/09/20 07:10 36.4 C L 68 18 182/69 H 182/78 H 93 08/09/20 03:57 36.6 C 70 18 165/82 H 91 08/08/20 22:40 36.3 C L 87 20 172/67 H 93 08/08/20 19:14 36.6 C 74 18 172/76 H 93 Cardiovascular + irregularly irregular Respiratory normal respiratory effort, lungs clear to auscultation Pre-Sedation Airway Assessment Smoking Status: Former smoker Hx Sleep Apnea: No Short, Thick Neck: No Thyromental Distance: > or= 3.5 Finger Breadths Oral Cavity: + Chipped Teeth and + WNL Mallampati Class: III ASA: ASA3 NPO Status Date of Last Intake of Fluids: 08/08/20 Date of Last Intake of Solid Food: 08/08/20 Procedure Planning Contraindications for Sedation: none Current Medications Reviewed: Yes Notes The planned sedation has been discussed with the patient. Informed Consent was obtained. I have identified the patient, determined the appropriateness of sedation and have assessed the patient immediately prior to the procedure. All medicine(s) and interventions are by my order.
[2020-08-09] MEDS ORDERED: MIDAZOLAM HCL 5 MG/ML 1 ML VIAL ONE (16:29)
[2020-08-09] MEDS ORDERED: fentaNYL citrate 100 MCG/2 ML VIAL ONE (16:29)
--- NOTE | 2020-08-09 17:39 | Electrophysiology Report ---
Date of Service August 09, 2020 Electrophysiology Procedure Electrophysiology Procedure Report Preoperative diagnosis: Symptomatic tachybradycardia syndrome Postoperative diagnosis: Same Procedure: Dual-chamber pacemaker implantation Surgeon: Mina Marina MD Estimated blood loss: 20 cc Complications: None Disposition: Pipe Maker recovery Procedure details: After obtaining informed consent for the procedure, the patient was brought to the laboratory and prepped and draped in the standard sterile manner. The left prepectoral region was anesthetized with 1% lidocaine local anesthetic and left axillary venipuncture was performed by percutaneous technique and a guidewire placed through the left subclavian vein into the superior vena cava. The area was further infiltrated with 1% lidocaine local anesthetic and a 5 cm incision was made parallel to the left clavicle and 2 cm below it and carried down to the anterior pectoralis fascia. A pacemaker pocket was formed by blunt dissection anterior to the pectoralis fascia and a bacitracin-soaked sponge (50,000 units in 50 cc normal saline solution) was placed in the pocket. An 8 [place] Med[employer]onic lead introducer was placed over the guidewire into the left subclavian vein, the dilator and guidewire were removed and a bipolar active fixation steroid tipped ventricular lead was advanced through the introducer into the superior vena cava. A guidewire was placed through the introducer and the introducer was stripped from the lead and guidewire. Using a curved stylette the ventricular lead was advanced through the right ventricular outflow tract into the pulmonary artery and then using a straight stylette was positioned in the right ventricular apex. The screw was extended fixing the lead in position. Pacing and sensing thresholds were evaluated in bipolar configuration and are recorded on the implant data sheet. A second vena puncture was performed through the incision and a guidewire was introduced into the left subclavian vein. An 8 [place] Medtronic lead introducer was advanced over the guidewire into the superior vena cava, the dilator and guidewire were removed and a bipolar active fixation steroid tipped atrial lead was advanced through the introducer into the superior vena cava. A guidewire was placed back through the introducer and the introducer was stripped from the lead and guidewire. Using a curved stylette the atrial lead was positioned in the region of the atrial appendage and the screw extended fixing the lead in position. Pacing and sensing thresholds were evaluated in bipolar configuration and are recorded on the implant data sheet. Once the leads were in position they were attached to the anterior pectoralis fascia using 2 sutures of 2-0 silk around each lead collar. The bacitracin- soaked sponge was removed from the pocket, hemostasis was obtained, the pacemaker was attached to the leads and placed in the pocket with the leads coiled beneath it. The incision was closed with a running double subcutaneous closure of 3-0 Vicryl absorbable suture, followed by running subcuticular skin closure of 4-0 Vicryl absorbable suture. Bacitracin ointment was placed on the incision and a pressure dressing applied. [facility] [place] Electrophysiology codes Indication for Procedure (1) Tachy-luiz syndrome: Pacing Procedure 1: Pacin Insert/Replace Pacer A & V PG Moderate Sedation Codes Moderate Sedation Codes Procedure 1: Sedation/Anesthesia: 52880 Mod Sedation by the same physician;Init15 Min Child Age 5 & Up Procedure 2: Sedation/Anesthesia: 55041 Mod Sedation by the same physician; Ea [id number] Minutes
[2020-08-09] MEDS: METOPROLOL TARTRATE 50 MG TAB PO SCH (18:19)
--- NOTE | 2020-08-09 18:31 | Post Anesthesia Assessment ---
Date of Service August 09, 2020 Post Sedation Assessment Vital Signs Temp Pulse Pulse Pulse Resp BP BP 08/09/20 18:24 36.6 C 89 18 161/99 H 08/09/20 18:09 36.6 C 99 H 20 187/96 H 08/09/20 17:54 36.3 C L 97 H 19 164/94 H 08/09/20 14:02 145/60 H 08/09/20 11:24 36.6 C 70 18 189/92 H 195/77 H 08/09/20 08:00 68 08/09/20 07:10 36.4 C L 68 18 182/69 H 182/78 H 08/09/20 03:57 36.6 C 70 18 165/82 H 08/08/20 22:40 36.3 C L 87 20 172/67 H 08/08/20 19:14 36.6 C 74 18 172/76 H Pulse Ox 08/09/20 18:24 92 08/09/20 18:09 901 H 08/09/20 17:54 90 08/09/20 14:02 08/09/20 11:24 93 08/09/20 08:00 08/09/20 07:10 93 08/09/20 03:57 91 08/08/20 22:40 93 08/08/20 19:14 93 Discharge Sedation Level of Care: Fast Track Phase II Post Sedation Plan On clinical assessment, the patient appears to have tolerated the sedation without complications. Patient is recovering as anticipated. Patient will continue to be monitored by nursing and may be discharged when sedation discharge criteria are met per below protocol. Upon Completions of procedure up to 15 minutes continue every 5 minute vital signs and the P.A.R. score; then discharge to a Phase I or Fast Track to Phase II per the following guidelines: * Discharge Patient to appropriate Phase II area if PAR is 8 or greater or return to pre- procedure baseline. The post - procedure orders will be as directed. * If PAR score is less than 8 or not return to pre-procedure baseline then patient will follow Phase I monitoring till PAR is reached for Phase II. The Phase I may be done in procedure room or may call to secure a Phase I area. * If naloxone or flumazenil are used for reversal, hold in Phase I for continued monitoring from when last reversal dose was given for a minimum of 60 minutes or longer pending the nurse and/or physician discretion of patient condition before discharge to Phase II. Please call the Sedation Physician to re-evaluate and complete post-note for discharge to Phase II area. Do NOT discharge from procedure sedation or Phase 1 until post- sedation evaluation note is complete by procedure /sedation MD Sedation Discharge Instructions to be given to the patient at discharge to home.
[2020-08-09] MEDS: allopurinoL 300 MG TAB PO SCH (21:42)
[2020-08-09] MEDS: SIMVASTATIN 80 MG TAB PO SCH (21:42)
[2020-08-09] MEDS: EZETIMIBE 10 MG TABLET PO SCH (21:42)
[2020-08-10] MEDS: LEVOTHYROXINE SODIUM 50 MCG TABLET PO SCH (05:34)
[2020-08-10 07:02] LABS: BUN Creatinine Ratio 20.8 (10-20); Calcium 8.9 mg/dl (8.5-10.1); Creatinine Clr Calc Pharmacy 52.9 ml/min; Est GFR (African American) 53.2; Est GFR (Non-African American) 45.9; Potassium 4.1 mmol/L (3.5-5.1)
--- NOTE | 2020-08-10 08:39 | XRay Report ---
XR chest 2V PA/lateral CLINICAL HISTORY: Chest x-ray status post pacemaker placement COMPARISON STUDY: 08/06/2020 FINDINGS: The heart remains enlarged. There are postsurgical changes of a midline sternotomy. There h as been interval placement of a left subclavian dual-chamber central venous pacemaker. Lead position appears unremarkable. There is no pneumothorax. There are small pleural effusions. There is no focal pulmonary consolidation.[ IMPRESSION: 1. No evidence of pneumothorax status post placement of a left subclavian dual-chamber central venous pacemaker 2. Small pleural effusions. Cardiomegaly. ACT 112: Negative or not required by law. Electronically signed by: Kendall Ernst M.D. 08/10/2020 8:38 AM
[2020-08-10] MEDS: DOCUSATE SODIUM 100 MG CAP PO SCH (08:54)
[2020-08-10] MEDS: hydrALAZINE TAB 50 MG TAB PO SCH (08:55)
[2020-08-10] MEDS: METOPROLOL TARTRATE 50 MG TAB PO SCH (08:55)
[2020-08-10] MEDS: ASPIRIN 81 MG ECTAB PO SCH (08:55)
[2020-08-10] MEDS: FUROSEMIDE 40 MG TAB PO SCH (08:55)
--- NOTE | 2020-08-10 09:11 | Cardiology Progress Note ---
Date of Service August 10, 2020 Assessment & Plan (1) Status post placement of cardiac pacemaker: His pacemaker is working well, the leads are good position and the site looks good. He is stable for discharge today from the surgical standpoint. (2) Atrial fibrillation with rapid ventricular response: I placed him on metoprolol tartrate 50 mg twice a day yesterday, his rate appears to be reasonably well controlled at least at rest. Would send him home on at least this dose, higher dose could be used if blood pressure control was desired. The pacemaker will monitor his heart rate at home so we can tell if he goes too fast and follow-up. He should be on anticoagulation. I will plan on cardioversion as an outpatient after another month of anticoagulation. (3) Hypertension: His blood pressure remains elevated, at this point there is no clear limitation on what medications can be used to control his blood pressure and I will leave adjustment to the primary service. (4) Anticoagulant long-term use: He should go back on anticoagulation today, I would recommend restarting Eliquis this evening and I will make that change to his medication list. Admission and Anticipated Discharge Date Admission Date: August 07, 2020 Subjective He feels well, he is anxious to go home. No incisional discomfort, no shortness of breath, no chest discomfort. Physical Exam Physical Exam: The incision is clean and dry without drainage or bleeding. Lungs are clear Cardiac rhythm is irregular without a rub Results & Data ([facility]) Vital Signs (Past 12 Hours) Vital Signs Temp Pulse Pulse Pulse Resp BP BP 08/10/20 07:44 70 08/10/20 07:22 36.4 C L 82 18 172/82 H 08/10/20 03:22 36.8 C 79 12 169/82 H 08/10/20 00:18 177/75 H 08/09/20 23:28 36.5 C 74 20 189/80 H 08/09/20 21:30 64 175/84 H Pulse Ox 08/10/20 07:44 08/10/20 07:22 91 08/10/20 03:22 91 08/10/20 00:18 08/09/20 23:28 92 08/09/20 21:30 Laboratory Results Comprehensive Metabolic Panel 08/10/20 Range/Units 05:44 Sodium 142 (136-145) mmol/L Potassium 4.1 (3.5-5.1) mmol/L Chloride 108 H (98-107) mmol/L Carbon Dioxide 30 (21-32) mmol/L BUN 30 H (7-18) mg/dl Creatinine 1.43 H (0.6-1.4) mg/dl Glucose 114 H (70-99) mg/dl Calcium 8.9 (8.5-10.1) mg/dl Intake and Output 08/09/20 08/10/20 08/10/20 22:59 06:59 14:59 Intake Total 710.833 / 940.833 200 / 940.833 Output Total 850 / 1500 200 / 1500 Balance -139.167 / -559.167 0 / -559.167 Intake: IV 310.833 / 340.833 D5w and Lactated Ringers 1,000 310.833 / 310.833 ml @ 50 mls/hr IV .Q20H CHARLI Rx# :[id number] Oral 400 / 600 200 / 600 Output: Urine 850 / 1500 200 / 1500 Other: # Unmeasured Voids 1 Weight 114.1 kg Weight Measurement Method Standing Scale Diagnostic Findings Postop ECG: Atrial fibrillation with intermittent ventricular pacing Telemetry: Atrial fibrillation with a well-controlled heart rate, intermittent ventricular pacing, asymptomatic 1 brief run of nonsustained ventricular tachycardia Pacemaker evaluation: Good measurements, pacer functioning well. Chest x-ray: Good lead position, no pneumothorax. PG Care Time/CCT Total # of Minutes Spent Total Time Spent with Patient: Total time spent is greater than 50% in coordination of care (as documented) at patient's floor/unit and/or counseling patient: Coding Level of Care Code 03769 Post Operative Follow-Up Diagnoses Status post placement of cardiac pacemaker Z95.0 Atrial fibrillation with rapid ventricular response I48.91 Hypertension I10 Hypertension type: essential hypertension Anticoagulant long-term use Z79.01 CPT Codes Dual Lead Pacemaker System - 42400 ([id number]) (1) Hypertension Hypertension type: essential hypertension Qualified Code(s): I10 - Essential (primary) hypertension
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
--- NOTE | 2020-08-10 13:01 | Electrocardiogram Report ---
Test Reason : Blood Pressure : / mmHG Vent. Rate : 071 BPM Atrial Rate : 079 BPM P-R Int : 000 ms QRS Dur : 106 ms QT Int : 418 ms P-R-T Axes : 000 -11 158 degrees QTc Int : 454 ms Atrial fibrillation with frequent ventricular-paced complexes Abnormal ECG When compared with ECG of 06-AUG-2020 11:34, Electronic ventricular pacemaker has replaced Atrial fibrillation Vent. rate has decreased BY 90 BPM Confirmed by Salomón Masterson ([id number]) on 08/10/2020 1:01:35 PM Referred By: REFERRED SELF Confirmed By:Salomón Masterson
[2020-08-10] MEDS ORDERED: APIXABAN 5 MG TABLET PO SCH (21:00)
[2020-08-11] MEDS ORDERED: ERGOCALCIFEROL 50,000 UNITS 1250 MCG CAP PO SCH (09:00)
== END 2020-08-10 11:37 | disposition home or self-care (01) | DRG 243 ==
LOC: ED 11:27 → EDINP 11:27 → SUATTDRO 13:24 → EDINP 15:47 → 2S 18:11 → SUATTDRO 08-07 16:48

== ENCOUNTER 2020-09-25 11:51 | Inpatient (IN) ==
--- NOTE | 2020-09-25 12:14 | Emergency Department Note ---
Impression & Plan Pulmonary edema, Hypoxia, SADLER (dyspnea on exertion), Pleural effusion ED Provider Note NAME: TOMMY FRAGOSO AGE: 80 SEX: M : 1940 ARRIVES VIA: Ambulance INFORMANT: Patient, the patient's family member ED PROVIDER(S): Salomón Thao DO CHIEF COMPLAINT: Shortness of breath HPI: The patient is an 80-year-old male who presented to the emergency department for an evaluation of shortness of breath. The patient states he has been having difficulty breathing over the course the last few weeks. He has been putting off coming to the emergency department. He noticed that today symptoms became much worse. He notices no cough or fever. He does not notice lower extremity swelling but instead notices weight loss. The the dyspnea is not worse with lying flat but he does note significant dyspnea with any exertion. He denies having any black or bloody bowel movements. He has no chest pain. He did not call his family doctor for the symptoms. Symptoms became severe earlier today and he called 911. He was noted to be hypoxic prior to arrival. The patient states he recently had carotid endarterectomy. He does take oral anticoagulation for atrial fibrillation. He has not had any changes in his medications. He states he has been compliant with all of his outpatient medication regimen. ROS: See above HPI for pertinent positives & negatives. A total of 10 systems reviewed and were otherwise negative. PAST MEDICAL HISTORY: See Below PAST SURGICAL HISTORY: See Below FAMILY HISTORY: See Below SOCIAL HISTORY: See Below HOME MEDICATIONS: See Below ALLERGIES: See Below VITALS: See Below PHYSICAL EXAMINATION: GENERAL: The patient is awake and alert. The patient is somewhat anxious appearing. EYES: The conjunctivae are clear. The pupils are round and reactive. EARS, NOSE, MOUTH AND THROAT: The nose is without any evidence of any deformity. NECK: The neck is nontender and supple. RESPIRATORY: Diminished breath sounds are noted in the right lung field. There were rales at the right base. There was mild conversational dyspnea appreciated. CARDIOVASCULAR: Irregular rhythm was noted to auscultation. There is no definite murmur. GASTROINTESTINAL: The abdomen is soft. Abdomen is nontender. MUSCULOSKELETAL/EXTREMITIES: There is no evidence of gross deformity full range of motion is noted in the hips and shoulders. SKIN: There is no obvious evidence of any rash. There are no petechiae, pallor or cyanosis noted. NEUROLOGIC: Patient is awake alert and oriented x3. MEDICAL DECISION MAKING: The patient is an 80-year-old male who presented to the emergency department for an evaluation of difficulty breathing. The patient has been experiencing dyspnea on exertion which is slowly worsening over the last few weeks. The chele ent became significantly worse today. The patient has a history of atrial fibrillation. He states that he has been compliant with his outpatient medication regimen. The patient denies having any chest pain at this time. He was treated with Lasix in the emergency department for pulmonary edema. I discussed the patient's laboratory and radiographic studies with him. He was still unable to ambulate without significant dyspnea and hypoxia. For this reason I discussed his case with the on-call hospitalist. They will evaluate the patient in the emergency department for further management and disposition. Triage Nursing notes reviewed. Prior medical records reviewed Vital Signs: reviewed and remarkable for hypoxia and hypertension. Differential diagnosis: Reactive airway disease, pneumonia, pneumothorax, COPD, CHF, infections, cardiac ischemia, pulmonary embolism, musculoskeletal, gastrointestinal, as well as other pathologies. ER treatment provided: See below Diagnostics interpreted by me: ECG: EKG was obtained in the emergency department. My interpretation is atrial fibrillation at 92 bpm. Paced beats were noted. Lateral ST depressions with T wave versions were noted. This was compared to a tracing from August 092020. No significant changes were noted. Cardiac Monitoring: An order was placed for continuous cardiac monitoring. The monitor shows a rate of 89 bpm atrial fibrillation with rhythm. Laboratory studies: As stated above and show below. Imaging studies: See below Consultation(s): Dr. Lugo was notified about the patient in the emergency department. He will evaluate the patient in the emergency department for further management and disposition. Past Med/Surg History Medical History Atrial fibrillation Recent diagnosis > on Apixaban Carotid artery stenosis 90% right Carotid artery stenosis CHF (congestive heart failure) Chronic kidney disease, stage II (mild) Controlled type 2 diabetes mellitus with insulin therapy Diabetes mellitus, type 2 IDDM H/O: CVA (cerebrovascular accident) 2005 > no residual effects History of aortic valve disease s/p bioprosthetic AVR (2006) History of basal cell carcinoma History of SCC (squamous cell carcinoma) of skin Hyperlipidemia Hypothyroidism Hypothyroidism Transient ischemic attack (TIA) 06/02/20 > on Eliquis Surgical History History of cataract surgery R/L History of nasal septoplasty History of tooth extraction Hx of vasectomy S/P aortic valve replacement with bioprosthetic valve (2006) Status post carotid endarterectomy 07/2020 Family History Mother Cancer Family history of diabetes mellitus Father Tobacco use Other No family history of adverse response to anesthesia Denies family history of Ovarian cancer Prostate cancer Myocardial infarction Breast cancer Colorectal cancer Social History Smoking Status: Never smoker Second Hand Exposure: No; Hx Alcohol Use: No Hx Substance Use: Yes Preferred Language: Congolese Communication Ability: Effective Visual Impairment: No Limitations Hearing Ability: Normal Music Rehabilitation Therapist Required: No Beliefs That Will Affect Care: None marital status: Current Living Situation: Spouse current occupational status: retired Feels Safe at Home: Yes Childhood Exposure to Second-Hand Smoke: Yes Dental Care, Regularly: Yes Physical Activity Frequency: Does not Exercise Seatbelt Use: sometimes Sunscreen Use: No Assistive Devices: Glasses Allergies Allergies Allergy/AdvReac Type Severity Reaction Status Date / Time levofloxacin Allergy Mild Rash, Verified 09/25/20 14:37 Pruritus Home Meds Home Medications Medication Instructions Recorded Confirmed Tresiba FlexTouch U-100 80 unit SQ QAM 06/02/20 09/25/20 aspirin [Adult Aspirin Regimen] 81 mg PO QAM 06/02/20 09/25/20 docusate sodium 100 mg tablet 300 mg PO DAILY PRN tab 07/12/20 09/25/20 Trulicity 1.5 mg SQ WK 09/25/20 09/25/20 Previous Rx's Medication Instructions Recorded glimepiride 4 mg tablet 4 mg PO BID #180 tab 12/12/19 ergocalciferol (vitamin D2) 1,250 50,000 unit PO MONTHLY #12 cap 03/05/20 mcg (50,000 unit) capsule simvastatin 80 mg tablet 80 mg PO QPM #90 tab 03/16/20 levothyroxine 50 mcg tablet 50 mcg PO DAILY #90 tab 06/04/20 oxycodone-acetaminophen [Percocet] 1 - 2 tab PO Q4H PRN #20 tab 08/01/20 allopurinol 300 mg PO PM #30 tab 08/10/20 ezetimibe 10 mg PO PM #30 tab 08/10/20 hydralazine 100 mg PO TID #100 tab 08/10/20 apixaban 5 mg tablet 2.5 mg PO BID #90 tab 09/12/20 diltiazem HCl 180 mg 180 mg PO QAM #90 tab 09/12/20 tablet,extended release 24 hr furosemide 40 mg tablet 40 mg PO BID #180 tab 09/12/20 Results & Data (ED) Vital Signs Vital Signs - 24 hr 09/25/20 11:59 09/25/20 12:01 09/25/20 12:37 Temperature 37.2 C Temperature Source Oral Pulse Rate 83 81 Pulse Rate from SpO2 Sensor Respiratory Rate 16 16 21 Respiratory Effort / Characteristics Non-Labored Respiratory Depth Normal Blood Pressure 172/108 H Blood Pressure [Right Arm] 172/108 H Blood Pressure Mean 129 Blood Pressure Mean [Right Arm] 129 Blood Pressure Position Sitting Blood Pressure Position [Right Arm] Sitting Pulse Oximetry 88 L 88 L Oxygen Delivery Method Room Air Room Air Sepsis Recent Fever Within 48 Hours No Sepsis New/Unexplained Change in Mental Status N/A Sepsis Action Taken by Nursing No Action Required Oxygen Flow Rate - Titration 3 Pulse Oximetry Post Tiitration 93 09/25/20 13:00 09/25/20 13:01 09/25/20 13:02 Temperature Temperature Source Pulse Rate 91 H 76 80 Pulse Rate from SpO2 Sensor 87 78 80 Respiratory Rate 21 21 21 Respiratory Effort / Characteristics Respiratory Depth Blood Pressure 158/98 H Blood Pressure [Right Arm] Blood Pressure Mean 118 Blood Pressure Mean [Right Arm] Blood Pressure Position Blood Pressure Position [Right Arm] Pulse Oximetry 96 96 95 Oxygen Delivery Method Sepsis Recent Fever Within 48 Hours Sepsis New/Unexplained Change in Mental Status Sepsis Action Taken by Nursing Oxygen Flow Rate - Titration Pulse Oximetry Post Tiitration 09/25/20 13:30 09/25/20 14:00 09/25/20 14:30 Temperature Temperature Source Pulse Rate 90 81 88 Pulse Rate from SpO2 Sensor 88 Respiratory Rate 17 18 13 Respiratory Effort / Characteristics Respiratory Depth Blood Pressure 170/87 H 168/105 H Blood Pressure [Right Arm] Blood Pressure Mean 114 126 Blood Pressure Mean [Right Arm] Blood Pressure Position Blood Pressure Position [Right Arm] Pulse Oximetry 95 Oxygen Delivery Method Sepsis Recent Fever Within 48 Hours Sepsis New/Unexplained Change in Mental Status Sepsis Action Taken by Nursing Oxygen Flow Rate - Titration Pulse Oximetry Post Tiitration Home Medications Current Medication List: was personally reviewed by me Laboratory Data Attestation: I reviewed the patient's lab results. Result diagrams: 09/25/20 12:27 09/25/20 13:25 Lab Results 09/25/20 09/25/20 09/25/20 Range/Units 12:27 12:27 12:27 WBC 12.71 H (4.8-10.8) K/uL RBC 4.08 L (4.7-6.1) M/uL Hgb 12.3 L (14.0-18.0) g/dL Hct 37.6 L (42-52) % MCV 92.2 (80-100) fL MCH 30.1 (25-34) pg MCHC 32.7 (32-36) g/dL RDW Std Deviation 50.3 H (36.4-46.3) fL RDW Coeff of Omar 14.9 H (11.5-14.5) % Plt Count 327 (130-400) K/uL MPV 11.1 H (7.4-10.4) fL Immature Gran % (Auto) 0.2 % Neut % (Auto) 87.4 % Lymph % (Auto) 6.7 % [place] % (Auto) 5.4 % Eos % (Auto) 0.2 % Baso % (Auto) 0.1 % Neut # (Auto) 11.11 H (1.4-6.5) K/uL Lymph # (Auto) 0.85 L (1.2-3.4) K/uL [place] # (Auto) 0.69 H (0.11-0.59) K/uL Eos # (Auto) 0.02 (0-0.5) K/uL Baso # (Auto) 0.01 (0-0.2) K/uL Immature Gran # (Auto) 0.03 H (0.00-0.02) K/uL PT Cancelled INR Cancelled APTT Cancelled PTT Ratio Cancelled VBG pH (7.36-7.41) VBG pCO2 (38-50) mmHg VBG pO2 mmHg VBG HCO3 mmol/L VBG O2 Saturation % VBG Base Excess mEq/L Barometric Pressure mm/Hg Sodium 139 (136-145) mmol/L Potassium (3.5-5.1) mmol/L Chloride 105 (98-107) mmol/L Carbon Dioxide 26 (21-32) mmol/L Anion Gap 9.0 (3-11) BUN 44 H (7-18) mg/dl Creatinine 1.71 H (0.6-1.4) mg/dl Est Cr Clr Drug Dosing 43.4 ml/min Est GFR ( Amer) 42.6 ml/min Est GFR (Non-Af Amer) 36.7 ml/min BUN/Creatinine Ratio 26.0 H (10-20) Glucose 141 H (70-99) mg/dl Calcium 8.6 (8.5-10.1) mg/dl Magnesium (1.8-2.4) mg/dl Total Bilirubin 1.5 H (0.2-1) mg/dl AST (15-37) U/L ALT 27 (12-78) U/L Alkaline Phosphatase 106 (45-117) U/L Troponin I 0.024 (0-0.045) ng/ml NT-Pro-B Natriuret Pep 3474 H (0-1800) pg/ml Total Protein 6.9 (6.4-8.2) gm/dl Albumin 2.5 L (3.4-5.0) gm/dl Globulin 4.4 H (2.5-4.0) gm/dl Albumin/Globulin Ratio 0.6 L (0.9-2) 09/25/20 09/25/20 09/25/20 Range/Units 12:27 13:25 13:26 WBC (4.8-10.8) K/uL RBC (4.7-6.1) M/uL Hgb (14.0-18.0) g/dL Hct (42-52) % MCV (80-100) fL MCH (25-34) pg MCHC (32-36) g/dL RDW Std Deviation (36.4-46.3) fL RDW Coeff of Omar (11.5-14.5) % Plt Count (130-400) K/uL MPV (7.4-10.4) fL Immature Gran % (Auto) % Neut % (Auto) % Lymph % (Auto) % [place] % (Auto) % Eos % (Auto) % Baso % (Auto) % Neut # (Auto) (1.4-6.5) K/uL Lymph # (Auto) (1.2-3.4) K/uL [place] # (Auto) (0.11-0.59) K/uL Eos # (Auto) (0-0.5) K/uL Baso # (Auto) (0-0.2) K/uL Immature Gran # (Auto) (0.00-0.02) K/uL PT 12.0 INR 1.2 H APTT 31.3 H PTT Ratio 1.2 VBG pH 7.44 H (7.36-7.41) VBG pCO2 43 (38-50) mmHg VBG pO2 47 mmHg VBG HCO3 29 mmol/L VBG O2 Saturation 83.9 % VBG Base Excess 4.0 mEq/L Barometric Pressure 729.4 mm/Hg Sodium (136-145) mmol/L Potassium 4.1 (3.5-5.1) mmol/L Chloride (98-107) mmol/L Carbon Dioxide (21-32) mmol/L Anion Gap (3-11) BUN (7-18) mg/dl Creatinine (0.6-1.4) mg/dl Est Cr Clr Drug Dosing ml/min Est GFR ( Amer) ml/min Est GFR (Non-Af Amer) ml/min BUN/Creatinine Ratio (10-20) Glucose (70-99) mg/dl Calcium (8.5-10.1) mg/dl Magnesium 2.4 (1.8-2.4) mg/dl Total Bilirubin (0.2-1) mg/dl AST 21 (15-37) U/L ALT (12-78) U/L Alkaline Phosphatase (45-117) U/L Troponin I (0-0.045) ng/ml NT-Pro-B Natriuret Pep (0-1800) pg/ml Total Protein (6.4-8.2) gm/dl Albumin (3.4-5.0) gm/dl Globulin (2.5-4.0) gm/dl Albumin/Globulin Ratio (0.9-2) Administered Medications Discontinued Medications Furosemide (Furosemide 40 Mg/4 Ml Vial) 40 mg IV NOW STA Stop: 09/25/20 13:25 Last Admin: 09/25/20 13:45 Dose: 40 mg Documented by: [id number] Imaging Data Radiologist's Impression: Chest X-Ray 09/25/20 12:03 XR chest 1V portable CLINICAL HISTORY: Dyspnea COMPARISON STUDY: Chest radiograph August 10, 2020. FINDINGS: Dual-lead left subclavian pacemaker is in place. There are median sternotomy wires. Cardiomegaly is unchanged. There is no pneumothorax. Small right and trace left pleural effusions are noted. Pulmonary edema has developed. There are bibasilar opacities. IMPRESSION: 1. Interval development of pulmonary edema with small right and trace left pleural effusions with bibasilar opacities. 2. Cardiomegaly. ACT 112: Negative or not required by law. Electronically signed by: Pavel Nuñez M.D. 09/25/2020 12:56 PM Discharge Plan Visit Data Chief Complaint: Shortness of Breath/Dyspnea Stated Complaint: SOB, WEAKNESS, TROUBLE AMBULATING ED Provider: Salomón Thao Discharge Problem: Pulmonary edema, Hypoxia, SADLER (dyspnea on exertion), Pleural effusion Patient Disposition: Being Evaluated by Hospitalist Condition: Good Forms Stand Alone Forms: My [employer] Prescriptions Prescriptions: No Action glimepiride 4 mg tablet 4 mg PO BID Qty: 180 RF: 3 ergocalciferol (vitamin D2) 1,250 mcg (50,000 unit) capsule 50,000 unit PO MONTHLY Qty: 12 RF: 1 simvastatin 80 mg tablet 80 mg PO QPM Qty: 90 RF: 3 levothyroxine 50 mcg tablet 50 mcg PO DAILY Qty: 90 RF: 3 docusate sodium 100 mg tablet 300 mg PO DAILY PRN (Reason: Constipation) RF: 0 Eliquis 5 mg tablet 2.5 mg PO BID Qty: 90 RF: 3 diltiazem HCl 180 mg tablet extended release 24 hr 180 mg PO QAM Qty: 90 RF: 3 furosemide 40 mg tablet 40 mg PO BID Qty: 180 RF: 3 aspirin [Adult Aspirin Regimen] 81 mg tablet,delayed release (DR/EC) 81 mg PO QAM RF: 0 Tresiba FlexTouch U-100 100 unit/mL (3 mL) insulin pen 80 unit SQ QAM RF: 0 allopurinol 300 mg Tablet 300 mg PO PM Qty: 30 RF: 0 hydralazine 50 mg Tablet 100 mg PO TID Qty: 100 RF: 0 ezetimibe 10 mg Tablet 10 mg PO PM Qty: 30 RF: 0 Trulicity 1.5 mg/0.5 mL pen injector 1.5 mg SQ WK RF: 0 oxycodone-acetaminophen [Percocet] 5-325 mg Tablet 1 - 2 tab PO Q4H PRN (Reason: Pain) Qty: 20 RF: 0 Referrals Referrals: Kenneth Dow III, MD [Primary Care Provider] - Discharge Problem: Pulmonary edema Qualifiers: Chronicity: acute Qualified Code(s): J81.0 - Acute pulmonary edema
[2020-09-25 12:38] LABS: Oxygen Saturation VBG 83.9 %; pH VBG 7.44 (7.36-7.41)
[2020-09-25 12:44] LABS: Basophils # (auto) 0.01 K/uL (0-0.2); Basophils % (auto) 0.1 %; Eosinophils # (auto) 0.02 K/uL (0-0.5); Eosinophils % (auto) 0.2 %; Hematocrit (blood only) 37.6 % (42-52); Hemoglobin 12.3 g/dL (14.0-18.0); Immature Granulocytes # (auto) 0.03 K/uL (0.00-0.02); Immature Granulocytes % (auto) 0.2 %; Lymphocytes # (auto) 0.85 K/uL (1.2-3.4); Lymphocytes % (auto) 6.7 %; Mean Corpuscular Hemoglobin 30.1 pg (25-34); Mean Corpuscular Hgb Conc 32.7 g/dL (32-36); Mean Corpuscular Volume 92.2 fL (80-100); Mean Platelet Volume 11.1 fL (7.4-10.4); Monocytes # (auto) 0.69 K/uL (0.11-0.59); Monocytes % (auto) 5.4 %; Neutrophils # (auto) 11.11 K/uL (1.4-6.5); Neutrophils % (auto) 87.4 %; Platelet Count 327 K/uL (130-400); RDW Coefficient of Variation 14.9 % (11.5-14.5); RDW Standard Deviation 50.3 fL (36.4-46.3); Red Blood Count 4.08 M/uL (4.7-6.1); White Blood Count 12.71 K/uL (4.8-10.8)
--- NOTE | 2020-09-25 12:57 | XRay Report ---
XR chest 1V portable CLINICAL HISTORY: Dyspnea COMPARISON STUDY: Chest radiograph August 10, 2020. FINDINGS: Dual-lead left subclavian pacemaker is in place. There are median sternotomy wires. Cardiom egaly is unchanged. There is no pneumothorax. Small right and trace left pleural effusions are noted. Pulmonary edema has developed. There are bibasilar opacities. IMPRESSION: 1. Interval development of pulmonary edema with small right and trace left pleural effusions with bib asilar opacities. 2. Cardiomegaly. ACT 112: Negative or not required by law. Electronically signed by: Pavel Nuñez M.D. 09/25/2020 12:56 PM
[2020-09-25 13:04] LABS: Albumin Level 2.5 gm/dl (3.4-5.0); Calcium 8.6 mg/dl (8.5-10.1); Creatinine Clr Calc Pharmacy 43.4 ml/min; Est GFR (African American) 42.6 ml/min; Est GFR (Non-African American) 36.7 ml/min
[2020-09-25 13:08] LABS: Albumin Globulin Ratio 0.6 (0.9-2); Bilirubin,Total 1.5 mg/dl (0.2-1); Globulin 4.4 gm/dl (2.5-4.0); Total Protein 6.9 gm/dl (6.4-8.2); Troponin I 0.024 ng/ml (0-0.045)
[2020-09-25] MEDS ORDERED: FUROSEMIDE 40 MG/4 ML VIAL IV STA (13:24)
[2020-09-25 13:54] LABS: Potassium 4.1 mmol/L (3.5-5.1)
[2020-09-25 13:54] LABS: INR 1.2 (0.9-1.1); Partial Thromboplastin Ratio 1.2; Partial Thromboplastin Time 31.3 Seconds (21.0-31.0)
[2020-09-25 13:59] LABS: Magnesium 2.4 mg/dl (1.8-2.4)
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
[2020-09-25 16:28] LABS: D Dimer 1110 ug/L FEU (0-500)
[2020-09-25 17:17] LABS: Lyme Ab IgG w/WB Rflx Negative (Negative); Lyme Ab IgM w/WB Rflx Negative (Negative)
--- NOTE | 2020-09-25 17:53 | Electrocardiogram Report ---
Test Reason : Blood Pressure : / mmHG Vent. Rate : 092 BPM Atrial Rate : 066 BPM P-R Int : 000 ms QRS Dur : 102 ms QT Int : 384 ms P-R-T Axes : 000 -15 155 degrees QTc Int : 474 ms Atrial fibrillation with frequent ventricular-paced complexes and with premature ventricular or aberr antly conducted complexes Abnormal ECG When compared with ECG of 09-AUG-2020 22:22, Vent. rate has increased BY 21 BPM Confirmed by Gary Brannon ([id number]) on 09/25/2020 5:52:49 PM Referred By: REFERRED SELF Confirmed By:Jeff Brannon
[2020-09-25 18:07] LABS: Ferritin 108.6 ng/ml (8-388)
[2020-09-25 18:59] LABS: INR 1.2 (0.9-1.1); Prothrombin Time 11.9 Seconds (9.0-12.0)
[2020-09-25] MEDS ORDERED: ONDANSETRON INJ 2 MG/ML 2 ML VIAL IV PRN (19:24)
[2020-09-25] MEDS ORDERED: ACETAMINOPHEN 325 MG TAB PO PRN (19:24)
[2020-09-25] MEDS ORDERED: CARBOHYDRATES FOR HYPOGLYCEMIA PO PRN (19:45)
[2020-09-25] MEDS ORDERED: GLUCOSE 10 TABS/TUBE PO PRN (19:45)
[2020-09-25] MEDS ORDERED: GLUCAGON FOR INJ 1 MG VIAL IM PRN (19:45)
[2020-09-25] MEDS ORDERED: DEXTROSE 50% 50 ML SYRINGE IV PRN (19:45)
[2020-09-25] MEDS ORDERED: GLUCOSE 40% GEL 15 GM TUBE PO PRN (19:45)
[2020-09-25] MEDS: INSULIN ASPART 100 UNITS/ML 3 ML PEN SC SCH ×2 (20:41→21:05)
[2020-09-25] MEDS: POLYETHYLENE (MIRALAX) 17 GM PACK PO SCH (20:41)
[2020-09-25] MEDS: EZETIMIBE 10 MG TABLET PO SCH (20:42)
[2020-09-25] MEDS: SIMVASTATIN 80 MG TAB PO SCH (20:42)
[2020-09-25] MEDS: INSULIN GLARGINE SOLOSTAR 100 UNITS/ML 3 ML PEN SC SCH (20:42)
[2020-09-25] MEDS: hydrALAZINE TAB 50 MG TAB PO SCH (20:42)
[2020-09-25] MEDS: APIXABAN 2.5 MG TAB PO SCH (20:42)
[2020-09-25] MEDS: allopurinoL 300 MG TAB PO SCH (20:42)
[2020-09-25] MEDS: SENNA 8.6 MG TAB PO SCH (20:43)
[2020-09-25] MEDS ORDERED: BUMETANIDE 1 MG in SYRINGE 0 ML IV ONE (22:45)
[2020-09-25] MEDS: NITROGLYCERIN 2% OINTMENT 30GM TUBE EXT SCH (23:00)
[2020-09-25] MEDS: LABETALOL HCL IV 5 MG/ML 20ML IV PRN (23:47)
[2020-09-26] MEDS: NITROGLYCERIN 2% OINTMENT 30GM TUBE EXT SCH ×4 (05:02→23:34)
[2020-09-26] MEDS: LEVOTHYROXINE SODIUM 50 MCG TABLET PO SCH (06:10)
--- NOTE | 2020-09-26 07:50 | Ultrasound Report ---
BILATERAL LOWER EXTREMITY VENOUS DOPPLER CLINICAL HISTORY: edema, asymmetric legs, severe dyspnea; eval DVT COMPARISON STUDY: Bilateral lower extremity venous Doppler ultrasound December 13, 2013. TECHNIQUE: Sonography of the deep venous system of the bilateral lower extremities was performed. Co mpression and augmentation were evaluated. FINDINGS: The bilateral common femoral, superficial femoral and popliteal veins were compressible. A ugmentation was normal. Flow was shown within the deep calf vessels. IMPRESSION: No evidence of deep venous thrombus within the bilateral lower extremities. ACT 112: Negative or not required by law. Electronically signed by: Pavel Nuñez M.D. 09/26/2020 7:49 AM
[2020-09-26] MEDS: INSULIN ASPART 100 UNITS/ML 3 ML PEN SC SCH ×4 (08:14→20:49)
[2020-09-26] MEDS: APIXABAN 2.5 MG TAB PO SCH ×2 (08:15→20:12)
[2020-09-26] MEDS: ASPIRIN 81 MG ECTAB PO SCH (08:15)
[2020-09-26] MEDS: SENNA 8.6 MG TAB PO SCH (08:15)
[2020-09-26] MEDS: CEROVITE ADV FORMULA TAB PO SCH (08:15)
[2020-09-26] MEDS: INSULIN GLARGINE SOLOSTAR 100 UNITS/ML 3 ML PEN SC SCH ×2 (08:15→20:49)
[2020-09-26] MEDS: POLYETHYLENE (MIRALAX) 17 GM PACK PO SCH (08:16)
[2020-09-26] MEDS: hydrALAZINE TAB 50 MG TAB PO SCH ×3 (08:16→20:12)
[2020-09-26] MEDS ORDERED: dilTIAZem HCL 180 MG CAPCR PO SCH (09:00)
[2020-09-26 10:17] LABS: Basophils # (auto) 0.01 K/uL (0-0.2); Basophils % (auto) 0.1 %; Eosinophils # (auto) 0.05 K/uL (0-0.5); Eosinophils % (auto) 0.5 %; Hematocrit (blood only) 34.3 % (42-52); Hemoglobin 10.9 g/dL (14.0-18.0); Immature Granulocytes # (auto) 0.01 K/uL (0.00-0.02); Immature Granulocytes % (auto) 0.1 %; Lymphocytes # (auto) 0.69 K/uL (1.2-3.4); Lymphocytes % (auto) 6.7 %; Mean Corpuscular Hemoglobin 29.6 pg (25-34); Mean Corpuscular Hgb Conc 31.8 g/dL (32-36); Mean Corpuscular Volume 93.2 fL (80-100); Mean Platelet Volume 10.8 fL (7.4-10.4); Monocytes # (auto) 0.64 K/uL (0.11-0.59); Monocytes % (auto) 6.2 %; Neutrophils # (auto) 8.94 K/uL (1.4-6.5); Neutrophils % (auto) 86.4 %; Platelet Count 282 K/uL (130-400); RDW Standard Deviation 50.9 fL (36.4-46.3); Red Blood Count 3.68 M/uL (4.7-6.1); White Blood Count 10.34 K/uL (4.8-10.8)
[2020-09-26 10:43] LABS: Albumin Level 2.2 gm/dl (3.4-5.0); BUN Creatinine Ratio 25.5 (10-20); Calcium 8.7 mg/dl (8.5-10.1); Creatinine Clr Calc Pharmacy 46.5 ml/min; Est GFR (African American) 45.8 ml/min; Est GFR (Non-African American) 39.5 ml/min; Magnesium 2.3 mg/dl (1.8-2.4); Potassium 3.8 mmol/L (3.5-5.1)
[2020-09-26 10:46] LABS: Albumin Globulin Ratio 0.6 (0.9-2); Bilirubin,Total 1.4 mg/dl (0.2-1); Globulin 3.8 gm/dl (2.5-4.0); Phosphorus 3.9 mg/dl (2.5-4.9)
--- NOTE | 2020-09-26 13:58 | Cardiology Consultation ---
Date of Consultation September 26, 2020 Assessment & Plan (1) SADLER (dyspnea on exertion): He appears to have pulmonary vascular congestion. He is believed to have preserved LV systolic function based on echocardiogram obtained in May of this year. Is not appear to have marked volume overload and is not edematous, but his lung examination, x-ray, symptoms an elevated BNP would suggest he requires some diuresis. He did receive diuretics yesterday and likely requires another dose today. 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 He still appears to have elevated ventricular rates and this could contribute to some of his symptoms. He was recently transition from metoprolol to diltiazem in the hopes that this may improve some of his fatigue. He clearly requires more diltiazem and may require metoprolol as well. I will increase his dose. He will continue systemic anticoagulation. Overall function of the pacemaker appears adequate. 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 It seems that the patient has been suffering from fatigue for few months. This is manifest by a sense of tiredness throughout the day and an element of exercise intolerance. More recently he has had some concerns about breathing difficulty and appears to have had markedly worsening dyspnea over the past day or 2. At the time of my interview the patient was very tired and. Frustrated regarding his medical problems. He had difficulty characterizing any recent symptoms. It seems that he is simply not been feeling well for few months. He did not endorse overt dizziness or lightheadedness recently. He has not had recent syncope. He is not aware of palpitations. He appears to have lost weight but did not describe any specific gastrointestinal disturbance. He has not been aware of any lower extremity edema. He denies symptoms of chest discomfort. Allergies Allergy/AdvReac Type Severity Reaction Status Date / Time levofloxacin Allergy Mild Rash, Verified 09/25/20 14:37 Pruritus Home Medications Medication Instructions Recorded Confirmed Type glimepiride 4 mg tablet 4 mg PO BID #180 tab 12/12/19 09/25/20 Rx ergocalciferol (vitamin D2) 1,250 50,000 unit PO MONTHLY #12 cap 03/05/20 09/25/20 Rx mcg (50,000 unit) capsule simvastatin 80 mg tablet 80 mg PO QPM #90 tab 03/16/20 09/25/20 Rx Tresiba FlexTouch U-100 80 unit SQ QAM 06/02/20 09/25/20 History aspirin [Adult Aspirin Regimen] 81 mg PO QAM 06/02/20 09/25/20 History levothyroxine 50 mcg tablet 50 mcg PO DAILY #90 tab 06/04/20 09/25/20 Rx docusate sodium 100 mg tablet 300 mg PO DAILY PRN tab 07/12/20 09/25/20 History oxycodone-acetaminophen [Percocet] 1 - 2 tab PO Q4H PRN #20 tab 08/01/20 1 Rx allopurinol 300 mg PO PM #30 tab 08/10/20 09/25/20 Rx ezetimibe 10 mg PO PM #30 tab 08/10/20 09/25/20 Rx hydralazine 100 mg PO TID #100 tab 08/10/20 09/25/20 Rx apixaban 5 mg tablet 2.5 mg PO BID #90 tab 09/12/20 09/25/20 Rx diltiazem HCl 180 mg 180 mg PO QAM #90 tab 09/12/20 09/25/20 Rx tablet,extended release 24 hr furosemide 40 mg tablet 40 mg PO BID #180 tab 09/12/20 09/25/20 Rx Trulicity 1.5 mg SQ WK 09/25/20 09/25/20 History Patient History Medical History (Updated 09/28/20 @ 12:57 by Geetha Saleh MD) Atrial fibrillation Recent diagnosis > on Apixaban Carotid artery stenosis 90% right CHF (congestive heart failure) Chronic kidney disease, stage II (mild) CKD (chronic kidney disease) stage 3, GFR 30-59 ml/min Controlled type 2 diabetes mellitus with insulin therapy Depression Diabetes mellitus, type 2 IDDM Diastolic congestive heart failure, NYHA class 1 H/O: CVA (cerebrovascular accident) 2005 > no residual effects History of aortic valve disease s/p bioprosthetic AVR (2006) History of basal cell carcinoma History of SCC (squamous cell carcinoma) of skin Hyperlipidemia Hypothyroidism Transient ischemic attack (TIA) 06/02/20 > on Eliquis Surgical History (Updated 09/27/20 @ 12:28 by Bryan Anderson MD) History of cataract surgery R/L History of nasal septoplasty History of permanent cardiac pacemaker placement Dr Marina, 08/08/20 History of tooth extraction Hx of vasectomy S/P aortic valve replacement with bioprosthetic valve (2006) Status post carotid endarterectomy 07/2020 Family History Mother No problems noted. 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 Beliefs That Will Affect Care: None marital status: Current Living Situation: Spouse Current Living Situation Comment: lives in [place] 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 How many Children do You have: 3 Other Information That Helps Us Care for You: No Feels Safe at Home: No Is there a partner from a previous relationship who is making you feel unsafe now?: No Any Concerns about Your Family Situation: No Would You Like to Speak to Someone About Your Situation: No Safety Concerns: Feels Safe At This Time Childhood Exposure to Second-Hand Smoke: Yes Dental Care, Regularly: Yes Physical Activity Frequency: Does not Exercise Seatbelt Use: sometimes Sunscreen Use: No Assistive Devices: Oxygen - Continuous Review of Systems Review of Systems: All systems reviewed & are unremarkable except as noted in HPI & below Physical Exam Physical Exam: The patient is alert and oriented. He appeared tired.. He answered all questions appropriately. Obese HEENT: Pupils are equal and reactive to light and accommodation. Extraocular movements are intact. The sclerae are anicteric. Neuro: Cranial nerves intact Lungs: Some of reduced breath sounds in both lung manning. Occasional crackle. No expiratory wheezing. Normal respiratory effort. Cardiac: Heart demonstrates an irregular heart rhythm. Normal S1 and S2. No murmurs on examination. Pulses: The patient has palpable radial pulses bilaterally that are equal in intensity Extremities: There was no evidence of hypoperfusion. There is no cyanosis or clubbing. There is no edema. Skin: I did not appreciate any rashes on examination today. Results & Data ([facility]) Vital Signs (Past 12 Hours) Vital Signs Temp Pulse Resp BP Pulse Ox 09/26/20 11:35 37.0 C 82 23 131/76 90 09/26/20 07:27 37.0 C 87 18 171/91 H 93 09/26/20 04:28 36.7 C 98 H 18 137/95 94 Laboratory Results Abnormal Lab Results 09/25/20 09/25/20 09/25/20 13:25 13:25 13:25 WBC RBC Hgb Hct MCV MCH MCHC RDW Std Deviation RDW Coeff of Omar Plt Count MPV Immature Gran % (Auto) Neut % (Auto) Lymph % (Auto) Pershing % (Auto) Eos % (Auto) Baso % (Auto) Neut # (Auto) Lymph # (Auto) Pershing # (Auto) Eos # (Auto) Baso # (Auto) Immature Gran # (Auto) ESR PT INR APTT PTT Ratio D-Dimer Sodium Potassium 4.1 Chloride Carbon Dioxide Anion Gap BUN Creatinine Est Cr Clr Drug Dosing Est GFR ( Amer) Est GFR (Non-Af Amer) BUN/Creatinine Ratio Glucose POC Glucose Calcium Phosphorus Magnesium 2.4 Iron Cancelled 22 L Transferrin Cancelled 175 L Transferrin % Sat Cancelled 9 L Ferritin Cancelled 108.6 Total Bilirubin AST 21 ALT Alkaline Phosphatase C-Reactive Protein 6.46 H Total Protein Albumin Globulin Albumin/Globulin Ratio Vitamin B12 Lyme Disease IgG Ab Lyme Disease IgM Ab COVID-19 Eval Order SARS-CoV-2 (PCR) 09/25/20 09/25/20 09/25/20 13:26 13:26 13:27 WBC RBC Hgb Hct MCV MCH MCHC RDW Std Deviation RDW Coeff of Omar Plt Count MPV Immature Gran % (Auto) Neut % (Auto) Lymph % (Auto) Pershing % (Auto) Eos % (Auto) Baso % (Auto) Neut # (Auto) Lymph # (Auto) Pershing # (Auto) Eos # (Auto) Baso # (Auto) Immature Gran # (Auto) ESR 67 H PT 12.0 INR 1.2 H APTT 31.3 H PTT Ratio 1.2 D-Dimer 1110 H* Sodium Potassium Chloride Carbon Dioxide Anion Gap BUN Creatinine Est Cr Clr Drug Dosing Est GFR ( Amer) Est GFR (Non-Af Amer) BUN/Creatinine Ratio Glucose POC Glucose Calcium Phosphorus Magnesium Iron Transferrin Transferrin % Sat Ferritin Total Bilirubin AST ALT Alkaline Phosphatase C-Reactive Protein Total Protein Albumin Globulin Albumin/Globulin Ratio Vitamin B12 Lyme Disease IgG Ab Lyme Disease IgM Ab COVID-19 Eval Order SARS-CoV-2 (PCR) 09/25/20 09/25/20 09/25/20 13:27 15:06 15:06 WBC RBC Hgb Hct MCV MCH MCHC RDW Std Deviation RDW Coeff of Omar Plt Count MPV Immature Gran % (Auto) Neut % (Auto) Lymph % (Auto) Pershing % (Auto) Eos % (Auto) Baso % (Auto) Neut # (Auto) Lymph # (Auto) Pershing # (Auto) Eos # (Auto) Baso # (Auto) Immature Gran # (Auto) ESR PT INR APTT PTT Ratio D-Dimer Sodium Potassium Chloride Carbon Dioxide Anion Gap BUN Creatinine Est Cr Clr Drug Dosing Est GFR ( Amer) Est GFR (Non-Af Amer) BUN/Creatinine Ratio Glucose POC Glucose Calcium Phosphorus Magnesium Iron Transferrin Transferrin % Sat Ferritin Total Bilirubin AST ALT Alkaline Phosphatase C-Reactive Protein Total Protein Albumin Globulin Albumin/Globulin Ratio Vitamin B12 Lyme Disease IgG Ab Negative Lyme Disease IgM Ab Negative COVID-19 Eval Order Covid19 at [facility] SARS-CoV-2 (PCR) NEGATIVE 09/25/20 09/25/20 09/25/20 16:17 18:32 19:51 WBC RBC Hgb Hct MCV MCH MCHC RDW Std Deviation RDW Coeff of Omar Plt Count MPV Immature Gran % (Auto) Neut % (Auto) Lymph % (Auto) Pershing % (Auto) Eos % (Auto) Baso % (Auto) Neut # (Auto) Lymph # (Auto) Pershing # (Auto) Eos # (Auto) Baso # (Auto) Immature Gran # (Auto) ESR PT 11.9 INR 1.2 H APTT PTT Ratio D-Dimer Sodium Potassium Chloride Carbon Dioxide Anion Gap BUN Creatinine Est Cr Clr Drug Dosing Est GFR ( Amer) Est GFR (Non-Af Amer) BUN/Creatinine Ratio Glucose POC Glucose 70 Calcium Phosphorus Magnesium Iron Transferrin Transferrin % Sat Ferritin Total Bilirubin AST ALT Alkaline Phosphatase C-Reactive Protein Total Protein Albumin Globulin Albumin/Globulin Ratio Vitamin B12 Cancelled Lyme Disease IgG Ab Lyme Disease IgM Ab COVID-19 Eval Order SARS-CoV-2 (PCR) 09/26/20 09/26/20 09/26/20 07:05 09:50 09:50 WBC 10.34 RBC 3.68 L Hgb 10.9 L Hct 34.3 L MCV 93.2 MCH 29.6 MCHC 31.8 L RDW Std Deviation 50.9 H RDW Coeff of Omar 15.0 H Plt Count 282 MPV 10.8 H Immature Gran % (Auto) 0.1 Neut % (Auto) 86.4 Lymph % (Auto) 6.7 Pershing % (Auto) 6.2 Eos % (Auto) 0.5 Baso % (Auto) 0.1 Neut # (Auto) 8.94 H Lymph # (Auto) 0.69 L Pershing # (Auto) 0.64 H Eos # (Auto) 0.05 Baso # (Auto) 0.01 Immature Gran # (Auto) 0.01 ESR PT INR APTT PTT Ratio D-Dimer Sodium 140 Potassium 3.8 Chloride 106 Carbon Dioxide 26 Anion Gap 9.0 BUN 41 H Creatinine 1.61 H Est Cr Clr Drug Dosing 46.5 Est GFR ( Amer) 45.8 Est GFR (Non-Af Amer) 39.5 BUN/Creatinine Ratio 25.5 H Glucose 169 H POC Glucose 95 Calcium 8.7 Phosphorus 3.9 Magnesium 2.3 Iron Transferrin Transferrin % Sat Ferritin Total Bilirubin 1.4 H AST 16 ALT 23 Alkaline Phosphatase 96 C-Reactive Protein Total Protein 6.0 L Albumin 2.2 L Globulin 3.8 Albumin/Globulin Ratio 0.6 L Vitamin B12 Lyme Disease IgG Ab Lyme Disease IgM Ab COVID-19 Eval Order SARS-CoV-2 (PCR) 09/26/20 11:44 WBC RBC Hgb Hct MCV MCH MCHC RDW Std Deviation RDW Coeff of Omar Plt Count MPV Immature Gran % (Auto) Neut % (Auto) Lymph % (Auto) Pershing % (Auto) Eos % (Auto) Baso % (Auto) Neut # (Auto) Lymph # (Auto) Pershing # (Auto) Eos # (Auto) Baso # (Auto) Immature Gran # (Auto) ESR PT INR APTT PTT Ratio D-Dimer Sodium Potassium Chloride Carbon Dioxide Anion Gap BUN Creatinine Est Cr Clr Drug Dosing Est GFR ( Amer) Est GFR (Non-Af Amer) BUN/Creatinine Ratio Glucose POC Glucose 131 H Calcium Phosphorus Magnesium Iron Transferrin Transferrin % Sat Ferritin Total Bilirubin AST ALT Alkaline Phosphatase C-Reactive Protein Total Protein Albumin Globulin Albumin/Globulin Ratio Vitamin B12 Lyme Disease IgG Ab Lyme Disease IgM Ab COVID-19 Eval Order SARS-CoV-2 (PCR) Diagnostic Findings With trace bilateral pleural effusions. Lower extremity venous Doppler did not reveal any thrombus. Echocardiogram performed on 06/03/2020 revealed preserved LV systolic function. Mild LVH. Moderate RVH. Normally functioning bioprosthetic aortic valve. Mild mitral regurgitation. Mildly elevated right ventricular systolic pressures. PG Care Time/CCT Total # of Minutes Spent Total Time Spent with Patient: Total time spent is greater than 50% in coordination of care (as documented) at patient's floor/unit and/or counseling patient: Coding Level of Care Code 65485 Initial Inpt Care Lvl 3 Diagnoses SADLER (dyspnea on exertion) R06.00 Tachy-luiz syndrome I49.5 History of aortic valve disease Z86.79
[2020-09-26] MEDS ORDERED: POTASSIUM CHLORIDE CRTAB 20 MEQ TABCR PO STA (14:16)
[2020-09-26] MEDS ORDERED: BUMETANIDE 1 MG in SYRINGE 0 ML IV ONE (14:30)
[2020-09-26] MEDS: dilTIAZem HCl 60 MG TAB PO SCH ×2 (17:00→23:35)
[2020-09-26] MEDS: LABETALOL HCL IV 5 MG/ML 20ML IV PRN (17:12)
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
[2020-09-26] MEDS: SERTRALINE HCL 50 MG TABLET PO SCH (19:44)
[2020-09-26] MEDS: FERROUS SULFATE 325 MG TAB PO SCH (19:45)
[2020-09-26] MEDS: EZETIMIBE 10 MG TABLET PO SCH (20:12)
[2020-09-26] MEDS: SIMVASTATIN 80 MG TAB PO SCH (20:12)
[2020-09-26] MEDS: allopurinoL 300 MG TAB PO SCH (20:12)
[2020-09-27] MEDS: NITROGLYCERIN 2% OINTMENT 30GM TUBE EXT SCH ×4 (04:30→23:30)
[2020-09-27] MEDS: dilTIAZem HCl 60 MG TAB PO SCH ×4 (05:29→23:32)
[2020-09-27] MEDS: LEVOTHYROXINE SODIUM 50 MCG TABLET PO SCH (05:29)
[2020-09-27 07:22] LABS: Basophils # (auto) 0.01 K/uL (0-0.2); Basophils % (auto) 0.1 %; Eosinophils # (auto) 0.03 K/uL (0-0.5); Eosinophils % (auto) 0.2 %; Hematocrit (blood only) 34.9 % (42-52); Hemoglobin 11.3 g/dL (14.0-18.0); Immature Granulocytes # (auto) 0.03 K/uL (0.00-0.02); Immature Granulocytes % (auto) 0.2 %; Lymphocytes # (auto) 0.65 K/uL (1.2-3.4); Lymphocytes % (auto) 5.2 %; Mean Corpuscular Hemoglobin 29.4 pg (25-34); Mean Corpuscular Hgb Conc 32.4 g/dL (32-36); Mean Corpuscular Volume 90.9 fL (80-100); Mean Platelet Volume 10.8 fL (7.4-10.4); Monocytes # (auto) 0.82 K/uL (0.11-0.59); Monocytes % (auto) 6.5 %; Neutrophils # (auto) 11.02 K/uL (1.4-6.5); Neutrophils % (auto) 87.8 %; Platelet Count 305 K/uL (130-400); RDW Coefficient of Variation 15.1 % (11.5-14.5); RDW Standard Deviation 49.6 fL (36.4-46.3); Red Blood Count 3.84 M/uL (4.7-6.1); White Blood Count 12.56 K/uL (4.8-10.8)
[2020-09-27 07:44] LABS: BUN Creatinine Ratio 26.6 (10-20); Calcium 8.8 mg/dl (8.5-10.1); Creatinine Clr Calc Pharmacy 41.9 ml/min; Est GFR (African American) 40.6 ml/min; Magnesium 2.4 mg/dl (1.8-2.4); Potassium 4.2 mmol/L (3.5-5.1)
[2020-09-27] MEDS: INSULIN ASPART 100 UNITS/ML 3 ML PEN SC SCH ×4 (08:10→21:00)
[2020-09-27] MEDS: SENNA 8.6 MG TAB PO SCH (08:11)
[2020-09-27] MEDS: CEROVITE ADV FORMULA TAB PO SCH (08:11)
[2020-09-27] MEDS: ASPIRIN 81 MG ECTAB PO SCH (08:11)
[2020-09-27] MEDS: hydrALAZINE TAB 50 MG TAB PO SCH ×3 (08:12→21:02)
[2020-09-27] MEDS: SERTRALINE HCL 50 MG TABLET PO SCH (08:12)
[2020-09-27] MEDS: APIXABAN 2.5 MG TAB PO SCH ×2 (08:12→21:02)
[2020-09-27] MEDS: FERROUS SULFATE 325 MG TAB PO SCH ×2 (08:12→17:11)
[2020-09-27] MEDS: POLYETHYLENE (MIRALAX) 17 GM PACK PO SCH (08:12)
[2020-09-27] MEDS: BUMETANIDE 2 MG in SYRINGE 0 ML IV SCH ×2 (08:13→17:10)
[2020-09-27] MEDS: INSULIN GLARGINE SOLOSTAR 100 UNITS/ML 3 ML PEN SC SCH ×2 (08:13→21:01)
--- NOTE | 2020-09-27 12:24 | Cardiology Progress Note ---
Date of Service September 27, 2020 Assessment & Plan (1) Atrial fibrillation with rapid ventricular response: (2) Diastolic CHF, acute: (3) CKD (chronic kidney disease) stage 3, GFR 30-59 ml/min: (4) History of permanent cardiac pacemaker placement: (5) Tachy-luiz syndrome: (6) S/P aortic valve replacement with bioprosthetic valve: Patient with still suboptimally controlled ventricular response which may be contributing to his volume retention. Given refractory tachycardia, suspect he will need a combination of negative chronotropic medications. Therefore, would add metoprolol to his current diltiazem. Could start at 25 mg p.o. every 8 hours, titrate to achieve ventricular rate 80-100 bpm without episodes of marked tachycardia. No real concern about bradycardia, since he has a pacemaker. Although he was on metoprolol initially and thought it caused fatigue, I suspect his dyspnea and fatigue were due to suboptimally controlled ventricular rate with diastolic congestive heart failure. Therefore, reasonable to retry metoprolol (added to diltiazem). He still appears mildly hypervolemic, agree with continued diuresis. Continue to monitor daily weight, input/output, renal function. Admission and Anticipated Discharge Date Admission Date: September 25, 2020 Subjective Patient slept fairly well and had a good appetite for breakfast. He still feels fatigued but denies dyspnea at rest (on oxygen) and has not noted subjective palpitations, chest pain, presyncope, or syncope. His blood pressure remains hypertensive and his ventricular rate remains elev ated. Telemetry review showed baseline rate 80-100 bpm but rates as high as 140 bpm with a short run at 150 bpm which appeared fairly regular (? run of atrial flutter with 2-1 block). Telemetry also showed intermittent pacing with wide variation in overall heart rate (tachybrady syndrome). Physical Exam Physical Exam: Appears comfortable, able to lie nearly flat. Weight down 1 pound. I/O even SBP 140-180 mm Hg HR 80-150 bpm Skin: no ecchymoses or generalized lesions. HEENT: unremarkable. Neck: Jugular venous pulse one third of the way to the angle of the jaw at 60 degrees, carotids with transmitted murmur versus bruit Lungs: clear. Cardiac: irregular tachycardic rhythm, no obvious murmur or gallop. Abdomen: benign. Extremities: no edema, pulses intact. Neurologic: normal affect, nonfocal. Results & Data ([facility]) Vital Signs (Past 12 Hours) Vital Signs Temp Pulse Resp BP BP Pulse Ox 09/27/20 11:52 147/71 H 09/27/20 11:07 97.7 F 125 H 21 150/125 H 90 09/27/20 07:17 97.5 F L 110 H 20 163/112 H 93 09/27/20 04:23 98.1 F 100 H 20 139/88 93 Laboratory Results BUN 47/creatinine 1.78 (41/1.61 yesterday). Potassium 4.2. PG Care Time/CCT Total # of Minutes Spent Total Time Spent with Patient: Total time spent is greater than 50% in coordination of care (as documented) at patient's floor/unit and/or counseling patient: Coding Level of Care Code 00643 Subseq Hosp Care Lvl 3 Diagnoses Atrial fibrillation with rapid ventricular response I48.91 Diastolic CHF, acute I50.31 CKD (chronic kidney disease) stage 3, GFR 30-59 ml/min N18.30 History of permanent cardiac pacemaker placement Z95.0 Tachy-luiz syndrome I49.5 S/P aortic valve replacement with bioprosthetic valve Z95.3
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
[2020-09-27] MEDS ORDERED: METOPROLOL TARTRATE 25 MG TAB PO ONE (15:45)
[2020-09-27] MEDS: SIMVASTATIN 80 MG TAB PO SCH (21:01)
[2020-09-27] MEDS: EZETIMIBE 10 MG TABLET PO SCH (21:02)
[2020-09-27] MEDS: allopurinoL 300 MG TAB PO SCH (21:02)
[2020-09-27] MEDS: METOPROLOL TARTRATE 25 MG TAB PO SCH (21:03)
[2020-09-27] MEDS: cefTRIAXone SODIUM 2,000 MG in DEXTROSE 5% 50 ML IV SCH (23:30)
[2020-09-28] MEDS: METOPROLOL TARTRATE 25 MG TAB PO SCH ×5 (00:24→23:01)
[2020-09-28] MEDS: NITROGLYCERIN 2% OINTMENT 30GM TUBE EXT SCH ×4 (04:12→23:00)
[2020-09-28] MEDS: dilTIAZem HCl 60 MG TAB PO SCH ×4 (06:11→23:01)
[2020-09-28] MEDS: LEVOTHYROXINE SODIUM 50 MCG TABLET PO SCH (06:12)
[2020-09-28 07:07] LABS: BUN Creatinine Ratio 25.3 (10-20); Calcium 8.9 mg/dl (8.5-10.1); Creatinine Clr Calc Pharmacy 38.3 ml/min; Est GFR (African American) 35.9 ml/min; Potassium 4.8 mmol/L (3.5-5.1)
[2020-09-28 07:08] LABS: Magnesium 2.5 mg/dl (1.8-2.4)
[2020-09-28] MEDS: INSULIN ASPART 100 UNITS/ML 3 ML PEN SC SCH ×4 (08:08→20:27)
[2020-09-28] MEDS: FERROUS SULFATE 325 MG TAB PO SCH ×2 (08:09→17:26)
[2020-09-28] MEDS: CEROVITE ADV FORMULA TAB PO SCH (08:09)
[2020-09-28] MEDS: APIXABAN 2.5 MG TAB PO SCH ×2 (08:09→20:25)
[2020-09-28] MEDS: ASPIRIN 81 MG ECTAB PO SCH (08:09)
[2020-09-28] MEDS: SERTRALINE HCL 50 MG TABLET PO SCH (08:10)
[2020-09-28] MEDS: INSULIN GLARGINE SOLOSTAR 100 UNITS/ML 3 ML PEN SC SCH ×2 (08:10→20:27)
[2020-09-28] MEDS: hydrALAZINE TAB 50 MG TAB PO SCH ×3 (08:10→20:26)
[2020-09-28] MEDS: POLYETHYLENE (MIRALAX) 17 GM PACK PO SCH (08:10)
[2020-09-28] MEDS: BUMETANIDE 2 MG in SYRINGE 0 ML IV SCH (08:11)
--- NOTE | 2020-09-28 09:09 | Cardiology Progress Note ---
Date of Service September 28, 2020 Assessment & Plan (1) Atrial fibrillation with rapid ventricular response: (2) Diastolic CHF, acute: (3) CKD (chronic kidney disease) stage 3, GFR 30-59 ml/min: (4) History of permanent cardiac pacemaker placement: (5) Tachy-luiz syndrome: (6) S/P aortic valve replacement with bioprosthetic valve: Patient feeling much better since rate now controlled on diltiazem plus metoprolol, could change to long acting agents (diltiazem CD 240 mg q Day, Metoprolol succinate 50 mg q Day). Bradycardia not a concern with pacemaker. BP better. Volume status reasonable, would discharge on his pre-admission regimen of furosemide 40 mg BID with increase to 60 mg BID for any weight gain. Ambulate and assess oxygen needs. Will sign off, if further cardiology input over weekend please contact Dr. Brannon. Follow-up in [facility] in 1-2 weeks, with me in 1 month. Admission and Anticipated Discharge Date Admission Date: September 25, 2020 Subjective He feels much better today, " I haven't felt this well since July". Walked to the commode and noted no dyspnea. Denies chest pain, subjective palpitations, or lightheadedness. Telemetry showed atrial fibrillation with controlled rate of 60-90 bpm. Physical Exam Physical Exam: Appears comfortable, able to lie nearly flat. Weight up 6 pounds (?). I/O + 355 SBP 130-1140 mm Hg HR 60-90 bpm Skin: no ecchymoses or generalized lesions. HEENT: unremarkable. Neck: Jugular venous pulse one quarter of the way to the angle of the jaw at 60 degrees, carotids with transmitted murmur versus bruit Lungs: clear. Cardiac: irregular rhythm, no obvious murmur or gallop. Abdomen: benign. Extremities: no edema, pulses intact. Neurologic: normal affect, nonfocal. Results & Data ([facility]) Vital Signs (Past 12 Hours) Vital Signs Temp Pulse Pulse Resp BP BP Pulse Ox 09/28/20 07:04 97.7 F 69 19 137/64 93 09/28/20 04:00 98.4 F 83 18 140/93 93 09/28/20 00:15 74 09/27/20 23:28 97.9 F 82 18 134/67 95 Laboratory Results BUN 50 , Cr 1.97 (47 & 1.78 yesterday). PG Care Time/CCT Total # of Minutes Spent Total Time Spent with Patient: Total time spent is greater than 50% in coordination of care (as documented) at patient's floor/unit and/or counseling patient: Coding Level of Care Code 19452 Subseq Hosp Care Lvl 3 Diagnoses Atrial fibrillation with rapid ventricular response I48.91 Diastolic CHF, acute I50.31 CKD (chronic kidney disease) stage 3, GFR 30-59 ml/min N18.30 History of permanent cardiac pacemaker placement Z95.0 Tachy-luiz syndrome I49.5 S/P aortic valve replacement with bioprosthetic valve Z95.3
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
--- NOTE | 2020-09-28 16:28 | XCELERA ---
[id number] \\[id number]
[2020-09-28] MEDS: allopurinoL 300 MG TAB PO SCH (20:25)
[2020-09-28] MEDS: SIMVASTATIN 80 MG TAB PO SCH (20:25)
[2020-09-28] MEDS: EZETIMIBE 10 MG TABLET PO SCH (20:26)
[2020-09-28] MEDS: cefTRIAXone SODIUM 2,000 MG in DEXTROSE 5% 50 ML IV SCH (23:00)
[2020-09-29] MEDS: NITROGLYCERIN 2% OINTMENT 30GM TUBE EXT SCH ×2 (05:35→10:00)
[2020-09-29] MEDS: METOPROLOL TARTRATE 25 MG TAB PO SCH (05:36)
[2020-09-29] MEDS: LEVOTHYROXINE SODIUM 50 MCG TABLET PO SCH (05:37)
[2020-09-29] MEDS: dilTIAZem HCl 60 MG TAB PO SCH (05:37)
[2020-09-29 06:10] LABS: Eosinophils # (auto) 0.06 K/uL (0-0.5); Eosinophils % (auto) 0.5 %; Hematocrit (blood only) 34.6 % (42-52); Hemoglobin 11.3 g/dL (14.0-18.0); Immature Granulocytes # (auto) 0.04 K/uL (0.00-0.02); Immature Granulocytes % (auto) 0.4 %; Lymphocytes # (auto) 1.01 K/uL (1.2-3.4); Lymphocytes % (auto) 8.9 %; Mean Corpuscular Hemoglobin 29.9 pg (25-34); Mean Corpuscular Hgb Conc 32.7 g/dL (32-36); Mean Corpuscular Volume 91.5 fL (80-100); Monocytes # (auto) 0.84 K/uL (0.11-0.59); Monocytes % (auto) 7.4 %; Neutrophils # (auto) 9.35 K/uL (1.4-6.5); Neutrophils % (auto) 82.8 %; Platelet Count 309 K/uL (130-400); RDW Coefficient of Variation 15.3 % (11.5-14.5); RDW Standard Deviation 50.8 fL (36.4-46.3); Red Blood Count 3.78 M/uL (4.7-6.1)
[2020-09-29 06:37] LABS: BUN Creatinine Ratio 24.1 (10-20); C Reactive Protein 4.42 mg/dl (0-0.29); Calcium 8.8 mg/dl (8.5-10.1); Creatinine Clr Calc Pharmacy 32.7 ml/min; Est GFR (African American) 29.6 ml/min; Est GFR (Non-African American) 25.5 ml/min; Magnesium 2.5 mg/dl (1.8-2.4); Potassium 4.1 mmol/L (3.5-5.1)
[2020-09-29] MEDS: INSULIN ASPART 100 UNITS/ML 3 ML PEN SC SCH ×4 (08:36→22:22)
[2020-09-29] MEDS: ASPIRIN 81 MG ECTAB PO SCH (08:38)
[2020-09-29] MEDS: APIXABAN 2.5 MG TAB PO SCH ×2 (08:38→22:21)
[2020-09-29] MEDS: dilTIAZem HCL 240 MG CAPCR PO SCH (08:39)
[2020-09-29] MEDS: FERROUS SULFATE 325 MG TAB PO SCH ×2 (08:39→17:12)
[2020-09-29] MEDS: hydrALAZINE TAB 50 MG TAB PO SCH ×3 (08:40→22:20)
[2020-09-29] MEDS: CEROVITE ADV FORMULA TAB PO SCH (08:41)
[2020-09-29] MEDS: INSULIN GLARGINE SOLOSTAR 100 UNITS/ML 3 ML PEN SC SCH ×2 (08:42→22:23)
[2020-09-29] MEDS: SERTRALINE HCL 50 MG TABLET PO SCH (08:42)
[2020-09-29] MEDS: POLYETHYLENE (MIRALAX) 17 GM PACK PO SCH (08:43)
[2020-09-29] MEDS ORDERED: METOPROLOL SUCC 50MG EXT REL TAB PO SCH (09:00)
--- NOTE | 2020-09-29 09:33 | Cardiology Progress Note ---
Date of Service September 29, 2020 Assessment & Plan (1) Atrial fibrillation with rapid ventricular response: Rates much improved. At this point seems reasonable continue his current dose of metoprolol, diltiazem and reduced dose Eliquis. (2) Diastolic CHF, acute: This appears resolved. It was recommended that he be discharged on Lasix 40 mg twice daily with an increase to 60 mg if he notices edema or weight gain. (3) CKD (chronic kidney disease) stage 3, GFR 30-59 ml/min: (4) History of permanent cardiac pacemaker placement: (5) Tachy-luiz syndrome: Normally functioning dual-chamber permanent pacemaker. (6) S/P aortic valve replacement with bioprosthetic valve: Normally functioning aortic prosthetic valve on echocardiogram. (7) Streptococcal bacteremia: Certainly concerning in the setting of a recently implanted pacemaker and bioprosthetic aortic valve. There is no evident pocket infection despite a very small stitch abscess at the medial aspect of the incision. It would be difficult to entirely exclude endocarditis although Streptococcus is a less common organism in this setting then staph. TTE did not demonstrate any obvious valvular lesion, dysfunction or lead vegetations. 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 Clinically he seems to be doing well Admission and Anticipated Discharge Date Admission Date: September 25, 2020 Subjective This morning the patient is feeling well. He is anxious for discharge. Breathing much improved. No orthopnea. No palpitations. Dizziness or lightheadedness. No chest pain. Review of Systems Review of Systems: Per HPI Physical Exam Physical Exam: The patient is alert and oriented. Mood and affect normal today. HEENT: Pupils are equal and reactive to light and accommodation. Extraocular movements are intact. The sclerae are anicteric. Neuro: Cranial nerves intact Lungs: Normal respiratory effort. Clear lung manning. Cardiac: Heart demonstrates an irregular heart rhythm. Normal S1 and S2. No murmurs on examination. Chest: Small pustule noted at the medial incision of his device implant. This was drained. No other erythema or tenderness to palpation Pulses: The patient has palpable radial pulses bilaterally that are equal in intensity Extremities: There was no evidence of hypoperfusion. There is no cyanosis or clubbing. There is no edema. Skin: I did not appreciate any rashes on examination today. Results & Data ([facility]) Vital Signs (Past 12 Hours) Vital Signs Temp Pulse Pulse Pulse Resp BP BP 09/29/20 07:55 36.5 C 62 20 156/66 H 09/29/20 07:47 68 09/29/20 05:38 69 148/66 H 09/29/20 03:19 36.3 C L 70 18 148/96 H 09/28/20 23:30 69 09/28/20 22:28 37.0 C 82 20 126/67 Pulse Ox 09/29/20 07:55 90 09/29/20 07:47 09/29/20 05:38 09/29/20 03:19 92 09/28/20 23:30 09/28/20 22:28 Laboratory Results Abnormal Lab Results 09/28/20 09/28/20 09/28/20 11:23 16:18 19:58 WBC RBC Hgb Hct MCV MCH MCHC RDW Std Deviation RDW Coeff of Omar Plt Count MPV Immature Gran % (Auto) Neut % (Auto) Lymph % (Auto) Edwards % (Auto) Eos % (Auto) Baso % (Auto) Neut # (Auto) Lymph # (Auto) Edwards # (Auto) Eos # (Auto) Baso # (Auto) Immature Gran # (Auto) ESR Sodium Potassium Chloride Carbon Dioxide Anion Gap BUN Creatinine Est Cr Clr Drug Dosing Est GFR ( Amer) Est GFR (Non-Af Amer) BUN/Creatinine Ratio Glucose POC Glucose 130 H 221 H 183 H Calcium Magnesium C-Reactive Protein 09/29/20 09/29/20 09/29/20 05:42 05:42 05:42 WBC 11.30 H RBC 3.78 L Hgb 11.3 L Hct 34.6 L MCV 91.5 MCH 29.9 MCHC 32.7 RDW Std Deviation 50.8 H RDW Coeff of Omar 15.3 H Plt Count 309 MPV 11.0 H Immature Gran % (Auto) 0.4 Neut % (Auto) 82.8 Lymph % (Auto) 8.9 Edwards % (Auto) 7.4 Eos % (Auto) 0.5 Baso % (Auto) 0.0 Neut # (Auto) 9.35 H Lymph # (Auto) 1.01 L Edwards # (Auto) 0.84 H Eos # (Auto) 0.06 Baso # (Auto) 0.00 Immature Gran # (Auto) 0.04 H ESR 86 H Sodium 140 Potassium 4.1 Chloride 106 Carbon Dioxide 30 Anion Gap 5.0 BUN 56 H Creatinine 2.31 H D Est Cr Clr Drug Dosing 32.7 Est GFR ( Amer) 29.6 Est GFR (Non-Af Amer) 25.5 BUN/Creatinine Ratio 24.1 H Glucose 96 POC Glucose Calcium 8.8 Magnesium 2.5 H C-Reactive Protein 4.42 H 09/29/20 07:18 WBC RBC Hgb Hct MCV MCH MCHC RDW Std Deviation RDW Coeff of Omar Plt Count MPV Immature Gran % (Auto) Neut % (Auto) Lymph % (Auto) Edwards % (Auto) Eos % (Auto) Baso % (Auto) Neut # (Auto) Lymph # (Auto) Edwards # (Auto) Eos # (Auto) Baso # (Auto) Immature Gran # (Auto) ESR Sodium Potassium Chloride Carbon Dioxide Anion Gap BUN Creatinine Est Cr Clr Drug Dosing Est GFR ( Amer) Est GFR (Non-Af Amer) BUN/Creatinine Ratio Glucose POC Glucose 101 H Calcium Magnesium C-Reactive Protein Diagnostic Findings With trace bilateral pleural effusions. Lower extremity venous Doppler did not reveal any thrombus. Echocardiogram performed on 06/03/2020 revealed preserved LV systolic function. Mild LVH. Moderate RVH. Normally functioning bioprosthetic aortic valve. Mild mitral regurgitation. Mildly elevated right ventricular systolic pressures. Two blood cultures positive for alpha Streptococcus PG Care Time/CCT Total # of Minutes Spent Total Time Spent with Patient: Total time spent is greater than 50% in coordination of care (as documented) at patient's floor/unit and/or counseling patient: Coding Level of Care Code 61527 Subseq Hosp Care Lvl 3 Diagnoses Atrial fibrillation with rapid ventricular response I48.91 Diastolic CHF, acute I50.31 CKD (chronic kidney disease) stage 3, GFR 30-59 ml/min N18.30 History of permanent cardiac pacemaker placement Z95.0 Tachy-luiz syndrome I49.5 S/P aortic valve replacement with bioprosthetic valve Z95.3 Streptococcal bacteremia R78.81; B95.5
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
--- NOTE | 2020-09-29 21:28 | CT Scan Report ---
CT SCAN OF THE ABDOMEN AND PELVIS WITHOUT CONTRAST CLINICAL HISTORY: Strep bacteremia,anemia,assess for GI malignancy COMPARISON STUDY: No previous studies for comparison. TECHNIQUE: CT scan of the abdomen and pelvis was performed from the lung bases to the proximal femurs . Images are reviewed in the axial, sagittal, and coronal planes. IV contrast was not administered fo r this examination. A dose lowering technique was utilized adhering to the principles of ALARA. CT DOSE: 1153.95 mGy.cm FINDINGS: Lower chest: Bilateral moderate pleural effusion associated with compressive atelectasis at dependent portions of bilateral lower lobes. Nonenlarged heart with leads of the distal pacemaker. Liver: The unenhanced liver is normal in size, contour, and attenuation. There is no intrahepatic armando iary ductal dilatation. Gallbladder: Partially contracted with large calcified gallstone within its lumen. Spleen: Normal in size and attenuation. Pancreas: Unremarkable. Adrenal glands: Right adrenal gland is unremarkable. 9 mm hypoattenuating nodule within left adrenal gland is better visualized on coronal reconstruction and show attenuation of -2 Hounsfield unit likel y representing adenoma. Kidneys: The unenhanced kidneys are normal in size without hydronephrosis. There is no contour deform ing renal mass lesion. No renal calculi are identified. Bowel: Bowel loops are nondilated. Appendix is not well seen. No significant bowel wall thickening is demonstrated. Small amount of fluid is seen within right paracolic gutter. Peritoneum: There is no intraperitoneal free gas. No definite ascites is seen. Vasculature: Normal size of abdominal aorta with concentric calcifications of its wall. Adenopathy: None. Pelvic viscera: Urinary bladder is fluid-filled. Prostate gland is slightly enlarged. Skeletal structures: Multilevel degenerative changes of the spine. Mild subcutaneous soft tissue edema is seen at the right lateral and left posterior lateral abdominal wall. IMPRESSION: 1. Small amount of free fluid is seen within the right paracolic gutter however there is no bowel lo op dilatation or wall thickening is seen. 2. Cholelithiasis. No definite evidence of cholecystitis. Gallbladder is contracted. 3. Atherosclerosis 4. Bilateral moderate pleural effusion associated with compressive atelectasis at dependent portions of bilateral lower lobes. 5. 9 mm hypoattenuating nodule within left adrenal gland is likely represent adenoma. ACT 112: Negative or not required by law. The above report was generated using voice recognition software. It may contain grammatical, syntax o r spelling errors. Electronically signed by: Harriett Bland DO 09/29/2020 9:27 PM
[2020-09-29] MEDS: METOPROLOL SUCC 50MG EXT REL TAB PO SCH (22:20)
[2020-09-29] MEDS: SIMVASTATIN 40 MG TAB PO SCH (22:20)
[2020-09-29] MEDS: allopurinoL 300 MG TAB PO SCH (22:21)
[2020-09-29] MEDS: EZETIMIBE 10 MG TABLET PO SCH (22:21)
[2020-09-29] MEDS: cefTRIAXone SODIUM 2,000 MG in DEXTROSE 5% 50 ML IV SCH (23:49)
[2020-09-30] MEDS: LEVOTHYROXINE SODIUM 50 MCG TABLET PO SCH (05:30)
[2020-09-30 06:35] LABS: BUN Creatinine Ratio 23.5 (10-20); Calcium 8.7 mg/dl (8.5-10.1); Creatinine Clr Calc Pharmacy 34.6 ml/min; Est GFR (African American) 31.4 ml/min; Est GFR (Non-African American) 27.1 ml/min
[2020-09-30] MEDS: SERTRALINE HCL 50 MG TABLET PO SCH (08:18)
[2020-09-30] MEDS: FERROUS SULFATE 325 MG TAB PO SCH ×2 (08:18→16:58)
[2020-09-30] MEDS: ASPIRIN 81 MG ECTAB PO SCH (08:18)
[2020-09-30] MEDS: APIXABAN 2.5 MG TAB PO SCH ×2 (08:18→22:00)
[2020-09-30] MEDS: METOPROLOL SUCC 50MG EXT REL TAB PO SCH ×2 (08:18→22:00)
[2020-09-30] MEDS: hydrALAZINE TAB 50 MG TAB PO SCH ×3 (08:19→22:00)
[2020-09-30] MEDS: CEROVITE ADV FORMULA TAB PO SCH (08:19)
[2020-09-30] MEDS: dilTIAZem HCL 240 MG CAPCR PO SCH (08:19)
[2020-09-30] MEDS: POLYETHYLENE (MIRALAX) 17 GM PACK PO SCH (08:19)
[2020-09-30] MEDS: INSULIN ASPART 100 UNITS/ML 3 ML PEN SC SCH ×4 (08:25→23:09)
[2020-09-30] MEDS: INSULIN GLARGINE SOLOSTAR 100 UNITS/ML 3 ML PEN SC SCH ×2 (08:26→22:30)
--- NOTE | 2020-09-30 10:02 | Cardiology Progress Note ---
Date of Service September 30, 2020 Assessment & Plan (1) Diastolic CHF, acute: (2) S/P aortic valve replacement with bioprosthetic valve: (3) History of permanent cardiac pacemaker placement: (4) Tachy-luiz syndrome: (5) Atrial fibrillation with rapid ventricular response: (6) Streptococcal bacteremia: Admission and Anticipated Discharge Date Admission Date: September 25, 2020 (1) Atrial fibrillation with rapid ventricular response: Well controlled. Continue current doses of metoprolol and diltiazem. (2) Diastolic CHF, acute: This appears resolved. It was recommended that he be discharged on Lasix 40 mg twice daily with an increase to 60 mg if he notices edema or weight gain. (3) CKD (chronic kidney disease) stage 3, GFR 30-59 ml/min: (4) History of permanent cardiac pacemaker placement: (5) Tachy-luiz syndrome: Normally functioning dual-chamber permanent pacemaker. (6) S/P aortic valve replacement with bioprosthetic valve: Normally functioning aortic prosthetic valve on echocardiogram. No evidence of vegetation. (7) Streptococcal bacteremia: Planned treatment for 6 weeks. Patient waiting for PICC line. If DENISE would change immediate management this could be arranged while he is an inpatient. Otherwise, it would seem reasonable to perform this as an outpatient specifically for persistent bacteremia. No obvious infection of his valve or device although we must maintain a high level of suspicion that either could be involved. DENISE at some point to get better images and exclude vegetations either on the leads or valve could be considered. Fortunately, the culprit organism is Streptococcus, much less concerning than staphylococcal species. (8) hypertension: Nitroglycerin discontinued. Metoprolol increased. Additionally, diltiazem could be increased to 360 mg daily if blood pressures continue to be high. Subjective This morning the patient stated he was not feeling well. He had difficulty characterizing this statement. He stated that he simply needed to just lying quietly and rest. He seemed be feeling well up until he did some mild activity early this morning. He specifically denied any chest pains, breathing trouble, abdominal complaints or dizziness. Review of Systems Review of Systems: Per HPI Physical Exam Physical Exam: The patient is alert and oriented. Mood and affect normal today. HEENT: Pupils are equal and reactive to light and accommodation. Extraocular movements are intact. The sclerae are anicteric. Neuro: Cranial nerves intact Lungs: Normal respiratory effort. Clear lung manning. Cardiac: Heart demonstrates an irregular heart rhythm. Normal S1 and S2. Systolic murmur Chest: Very small residual pustule at the medial aspect of his device incision. This was cleaned drain today. No obvious fistulous connection device pocket is nontender and not erythematous. Pulses: The patient has palpable radial pulses bilaterally that are equal in intensity Extremities: There was no evidence of hypoperfusion. There is no cyanosis or clubbing. There is no edema. Skin: I did not appreciate any rashes on examination today. Results & Data ([facility]) Vital Signs (Past 12 Hours) Vital Signs Temp Pulse Pulse Pulse Resp BP BP 09/30/20 07:18 74 09/30/20 06:43 36.3 C L 75 20 158/83 H 09/30/20 05:00 36.4 C L 81 18 156/81 H 09/30/20 00:00 76 09/29/20 22:29 36.9 C 78 20 147/56 H Pulse Ox 09/30/20 07:18 09/30/20 06:43 93 09/30/20 05:00 92 09/30/20 00:00 09/29/20 22:29 94 Laboratory Results Abnormal Lab Results 09/29/20 09/29/20 09/29/20 11:18 16:26 22:20 Sodium Potassium Chloride Carbon Dioxide Anion Gap BUN Creatinine Est Cr Clr Drug Dosing Est GFR ( Amer) Est GFR (Non-Af Amer) BUN/Creatinine Ratio Glucose POC Glucose 139 H 272 H 162 H Calcium Magnesium 09/30/20 09/30/20 05:20 07:34 Sodium 138 Potassium 4.0 Chloride 102 Carbon Dioxide 30 Anion Gap 6.0 BUN 52 H Creatinine 2.20 H Est Cr Clr Drug Dosing 34.6 Est GFR ( Amer) 31.4 Est GFR (Non-Af Amer) 27.1 BUN/Creatinine Ratio 23.5 H Glucose 111 H POC Glucose 134 H Calcium 8.7 Magnesium 3.0 H Diagnostic Findings With trace bilateral pleural effusions. Lower extremity venous Doppler did not reveal any thrombus. Echocardiogram performed on 06/03/2020 revealed preserved LV systolic function. Mild LVH. Moderate RVH. Normally functioning bioprosthetic aortic valve. Mild mitral regurgitation. Mildly elevated right ventricular systolic pressures. Two blood cultures positive for alpha Streptococcus PG Care Time/CCT Total # of Minutes Spent Total Time Spent with Patient: Total time spent is greater than 50% in coordination of care (as documented) at patient's floor/unit and/or counseling patient: Coding Level of Care Code 05716 Subseq Hosp Care Lvl 2 Diagnoses Diastolic CHF, acute I50.31 S/P aortic valve replacement with bioprosthetic valve Z95.3 History of permanent cardiac pacemaker placement Z95.0 Tachy-luiz syndrome I49.5 Atrial fibrillation with rapid ventricular response I48.91 Streptococcal bacteremia R78.81; B95.5
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
[2020-09-30] MEDS: allopurinoL 300 MG TAB PO SCH (22:00)
[2020-09-30] MEDS: EZETIMIBE 10 MG TABLET PO SCH (22:00)
[2020-09-30] MEDS: SIMVASTATIN 40 MG TAB PO SCH (22:00)
[2020-09-30] MEDS: cefTRIAXone SODIUM 2,000 MG in DEXTROSE 5% 50 ML IV SCH (23:07)
[2020-10-01] MEDS: LEVOTHYROXINE SODIUM 50 MCG TABLET PO SCH (05:15)
[2020-10-01] MEDS: FERROUS SULFATE 325 MG TAB PO SCH ×2 (08:07→16:48)
[2020-10-01] MEDS: APIXABAN 2.5 MG TAB PO SCH ×2 (08:07→22:39)
[2020-10-01] MEDS: dilTIAZem HCL 240 MG CAPCR PO SCH (08:07)
[2020-10-01] MEDS: ASPIRIN 81 MG ECTAB PO SCH (08:07)
[2020-10-01] MEDS: METOPROLOL SUCC 50MG EXT REL TAB PO SCH ×2 (08:08→22:39)
[2020-10-01] MEDS: CEROVITE ADV FORMULA TAB PO SCH (08:08)
[2020-10-01] MEDS: hydrALAZINE TAB 50 MG TAB PO SCH ×3 (08:08→22:39)
[2020-10-01] MEDS: POLYETHYLENE (MIRALAX) 17 GM PACK PO SCH (08:09)
[2020-10-01] MEDS: SERTRALINE HCL 50 MG TABLET PO SCH (08:09)
[2020-10-01] MEDS: INSULIN GLARGINE SOLOSTAR 100 UNITS/ML 3 ML PEN SC SCH ×2 (08:15→22:40)
[2020-10-01] MEDS: INSULIN ASPART 100 UNITS/ML 3 ML PEN SC SCH ×4 (08:42→22:40)
[2020-10-01] MEDS ORDERED: LORazepam 0.5 MG TAB PO STA (08:48)
--- NOTE | 2020-10-01 09:32 | Cardiology Progress Note ---
Date of Service October 01, 2020 Assessment & Plan (1) Streptococcal bacteremia: 6 weeks of antibiotics planned, TTE without obvious vegetation, possible DENISE at week 5 to assess pacer wires and valve prior to discontinuing antibiotics. Patient with gallstone on CT and RUQ tenderness/anorexia today, presenting another possible source of bacteremia? (2) Diastolic CHF, acute: Still with pleural effusions (on CT) and dyspnea. appears hypervolemic on exam and weight is up compared with admission weight, however diuretics were held due to rising creatinine (slightly improved today). Although he is not in overt CHF, given his dyspnea and effusions would restart his usual diuretic regimen (furosemide 40 mg BID) while continuing to monitor weight and renal function. Obtain standing weights rather than bedscale if possible. (3) HTN (hypertension): Add diuretic back today and increase diltiazem to 360 mg daily tomorrow it HTN persists. Will continue to follow. (4) History of permanent cardiac pacemaker placement: No immediate plans to remove pacemaker, since he is largely pacemaker dependent due to his tachy-luiz syndrome and the need for high doses of negative chronotropes. (5) Atrial fibrillation with rapid ventricular response: Rate well controlled with diltiazem plus metoprolol (60-70s). (6) Tachy-luiz syndrome: As above. (7) CKD (chronic kidney disease) stage 3, GFR 30-59 ml/min: Continue to monitor closely as diuretics are adjusted. (8) S/P aortic valve replacement with bioprosthetic valve: Function OK (mild stenosis, no obvious regurgitation or vegetation) Admission and Anticipated Discharge Date Admission Date: September 25, 2020 Subjective Poor appetite, generalized achiness and fatigue, depressed and anxious. Noted some dyspnea on mild exertion, denies chest pain, orthopnea, PND, or leg edema. No subjective palpitations. Telemetry with HR 60-70s, frequent pacing. Still mildly hypertensive. Physical Exam Physical Exam: Appears depressed but not in distress, able to lie nearly flat. Weight down 3 lbs but 9 lbs higher than admission weight) I/O -345 SBP 121-168 mm Hg HR 60-70 bpm Skin: Occasional ecchymosis, no generalized lesions. HEENT: unremarkable. Neck: Jugular venous pulse one half way to the angle of the jaw at 60 degrees, carotids with transmitted murmur versus bruit Lungs: dull at bases, clear. Cardiac: irregular rhythm, 2/6 BSEM to carotids, audible aortic closure sound. Abdomen: + RUQ tenderness, no guarding or rigidity. Extremities: no edema, pulses intact. Neurologic: depressed affect, nonfocal. Results & Data ([facility]) Vital Signs (Past 12 Hours) Vital Signs Temp Pulse Pulse Resp BP BP Pulse Ox 10/01/20 07:17 98.1 F 67 19 160/76 H 93 10/01/20 05:16 97.7 F 67 20 168/74 H 92 09/30/20 23:28 76 09/30/20 23:20 98.4 F 74 20 121/85 93 Laboratory Results WBC 11.3, Hgb 111.3, platelets normal. Normal electrolytes, BUN 52, Creat 2,.2 (56 & 2.31 yesterday). Blood cultures with 2/4 alpha strep. PG Care Time/CCT Total # of Minutes Spent Total Time Spent with Patient: Total time spent is greater than 50% in coordination of care (as documented) at patient's floor/unit and/or counseling patient: Coding Level of Care Code 12457 Subseq Hosp Care Lvl 3 Diagnoses Streptococcal bacteremia R78.81; B95.5 Diastolic CHF, acute I50.31 HTN (hypertension) I10 History of permanent cardiac pacemaker placement Z95.0 Atrial fibrillation with rapid ventricular response I48.91 Tachy-luiz syndrome I49.5 CKD (chronic kidney disease) stage 3, GFR 30-59 ml/min N18.30 S/P aortic valve replacement with bioprosthetic valve Z95.3
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
[2020-10-01] MEDS: allopurinoL 300 MG TAB PO SCH (22:40)
[2020-10-01] MEDS: SIMVASTATIN 40 MG TAB PO SCH (22:40)
[2020-10-01] MEDS: EZETIMIBE 10 MG TABLET PO SCH (22:40)
[2020-10-01] MEDS: cefTRIAXone SODIUM 2,000 MG in DEXTROSE 5% 50 ML IV SCH (22:43)
[2020-10-02] MEDS: LEVOTHYROXINE SODIUM 50 MCG TABLET PO SCH (05:17)
[2020-10-02 06:54] LABS: Hematocrit (blood only) 37.4 % (42-52); Hemoglobin 11.7 g/dL (14.0-18.0); Mean Corpuscular Hemoglobin 29.2 pg (25-34); Mean Corpuscular Hgb Conc 31.3 g/dL (32-36); Mean Corpuscular Volume 93.3 fL (80-100); Mean Platelet Volume 10.8 fL (7.4-10.4); Platelet Count 351 K/uL (130-400); RDW Coefficient of Variation 15.1 % (11.5-14.5); RDW Standard Deviation 51.3 fL (36.4-46.3); Red Blood Count 4.01 M/uL (4.7-6.1); White Blood Count 11.12 K/uL (4.8-10.8)
[2020-10-02 07:30] LABS: BUN Creatinine Ratio 30.7 (10-20); Calcium 8.9 mg/dl (8.5-10.1); Creatinine Clr Calc Pharmacy 41.7 ml/min; Est GFR (African American) 40.3 ml/min; Est GFR (Non-African American) 34.8 ml/min; Potassium 4.2 mmol/L (3.5-5.1)
[2020-10-02] MEDS: INSULIN GLARGINE SOLOSTAR 100 UNITS/ML 3 ML PEN SC SCH ×2 (08:59→21:49)
[2020-10-02] MEDS: APIXABAN 2.5 MG TAB PO SCH ×2 (08:59→21:48)
[2020-10-02] MEDS: CEROVITE ADV FORMULA TAB PO SCH (08:59)
[2020-10-02] MEDS: ASPIRIN 81 MG ECTAB PO SCH (08:59)
[2020-10-02] MEDS: FERROUS SULFATE 325 MG TAB PO SCH ×2 (09:00→18:36)
[2020-10-02] MEDS: METOPROLOL SUCC 50MG EXT REL TAB PO SCH ×2 (09:00→21:48)
[2020-10-02] MEDS: hydrALAZINE TAB 50 MG TAB PO SCH ×3 (09:00→21:48)
[2020-10-02] MEDS: SERTRALINE HCL 50 MG TABLET PO SCH (09:00)
[2020-10-02] MEDS: dilTIAZem HCL 240 MG CAPCR PO SCH (09:00)
[2020-10-02] MEDS: POLYETHYLENE (MIRALAX) 17 GM PACK PO SCH (09:01)
[2020-10-02] MEDS: INSULIN ASPART 100 UNITS/ML 3 ML PEN SC SCH ×4 (09:01→21:49)
--- NOTE | 2020-10-02 10:05 | Cardiology Progress Note ---
Date of Service October 02, 2020 Assessment & Plan (1) Streptococcal bacteremia: 6 weeks of antibiotics planned, TTE without obvious vegetation, possible DENISE at week 5 to assess pacer wires and valve prior to discontinuing antibiotics. (2) Diastolic CHF, acute: Still with pleural effusions (on CT) but no longer has dyspnea. appears mildly hypervolemic on exam. Weight is variable, was on furosemide 40 mg BID pre-admission. Could start furosemide 40 mg daily and titrate as needed, (3) HTN (hypertension): Add diuretic back, could increase diltiazem to 360 mg daily also. (4) History of permanent cardiac pacemaker placement: No immediate plans to remove pacemaker, since he is largely pacemaker dependent due to his tachy-luiz syndrome and the need for high doses of negative chronotropes. (5) Atrial fibrillation with rapid ventricular response: Rate well controlled with diltiazem plus metoprolol (60-70s). (6) Tachy-luiz syndrome: As above. (7) CKD (chronic kidney disease) stage 3, GFR 30-59 ml/min: Continue to monitor closely as diuretics are adjusted. (8) S/P aortic valve replacement with bioprosthetic valve: Function OK (mild stenosis, no obvious regurgitation or vegetation) Admission and Anticipated Discharge Date Admission Date: September 25, 2020 Subjective Doing better today. Appetite improved. Slept well. No chest pain, dyspnea, lightheadedness, or subjective palpitations. Rhythm well controlled, atrial fibrillation with electronic pacing rate 60-80 bpm. Physical Exam Physical Exam: No distress. Weight down 6 lbs (?), similar to admission weight. I/O -510 SBP 150-174 mm Hg HR 60-800 bpm Skin: Occasional ecchymosis, no generalized lesions. HEENT: unremarkable. Neck: Jugular venous pulse one half way to the angle of the jaw at 60 degrees, carotids with transmitted murmur versus bruit Lungs: dull at bases, clear. Cardiac: irregular rhythm, 2/6 BSEM to carotids, audible aortic closure sound. Abdomen: nontender, no guarding or rigidity. Extremities: no edema, pulses intact. Neurologic: depressed affect, nonfocal. Results & Data ([facility]) Vital Signs (Past 12 Hours) Vital Signs Temp Pulse Pulse Pulse Resp BP BP 10/02/20 07:19 98.4 F 67 19 158/77 H 10/02/20 07:15 72 10/02/20 05:17 97.5 F L 74 20 146/66 H 10/01/20 23:03 67 10/01/20 22:37 97.5 F L 80 20 169/92 H Pulse Ox 10/02/20 07:19 92 10/02/20 07:15 10/02/20 05:17 90 10/01/20 23:03 10/01/20 22:37 92 Laboratory Results Normal electrolytes, BUN 55, creatinine 1.79 (2.2 yesterday). PG Care Time/CCT Total # of Minutes Spent Total Time Spent with Patient: Total time spent is greater than 50% in coordination of care (as documented) at patient's floor/unit and/or counseling patient: Coding Level of Care Code 08822 Subseq Hosp Care Lvl 3 Diagnoses Streptococcal bacteremia R78.81; B95.5 Diastolic CHF, acute I50.31 HTN (hypertension) I10 History of permanent cardiac pacemaker placement Z95.0 Atrial fibrillation with rapid ventricular response I48.91 Tachy-luiz syndrome I49.5 CKD (chronic kidney disease) stage 3, GFR 30-59 ml/min N18.30 S/P aortic valve replacement with bioprosthetic valve Z95.3
--- NOTE | 2020-10-02 15:00 | XRay Report ---
SINGLE VIEW CHEST CLINICAL HISTORY: PICC placement. FINDINGS: 2 AP, portable, upright chest radiographs are compared to study dated 09/25/2020. The patien t is status post midline sternotomy. A 2-lead cardiac pacemaker is unchanged in position. A right PIC C line has been placed. The tip projects over the SVC. The heart is enlarged. There is pulmonary vasc ular congestion with evidence of interstitial edema. This has worsened as compared to 09/25/2020. Ther e are layering pleural effusions with bibasilar consolidation. No pneumothorax is seen. The skeletal structures are osteopenic. The bony thorax is grossly intact. IMPRESSION: 1. A right PICC line has been placed as above. 2. Cardiomegaly cardiac pacemaker with evidence of congestive failure and pulmonary edema. This has w orsened as compared to 09/25/2020. 3. Layering pleural effusions with bibasilar consolidation. ACT 112: Negative or not required by law. Electronically signed by: Cosme Ledesma M.D. 10/02/2020 2:59 PM
--- NOTE | 2020-10-02 18:20 | Ultrasound Report ---
US gallbladder HISTORY: 80 years-old Male RUQ pain, gall stones, bacteremia acute right upper quadrant abdominal pa in with known cholelithiasis COMPARISON: CT abdomen and pelvis 09/29/2020 TECHNIQUE: Multiple real-time sonographic images of the abdominal right upper quadrant were obtained assessing grayscale appearance and color flow FINDINGS: Visualized pancreas is unremarkable. The liver is within normal limits. Cholelithiasis. No gallbladde r wall thickening or pericholecystic fluid.. Negative sonographic Oliveira's sign. Common bile duct, 5 mm. Mild cortical thinning of the right kidney. No hydronephrosis. Right pleural effusion. IMPRESSION: 1. Cholelithiasis without sonographic evidence of acute cholecystitis. 2. No biliary ductal dilation. 3. Right pleural effusion redemonstrated. ACT 112: Negative or not required by law. The above report was generated using voice recognition software. It may contain grammatical, syntax o r spelling errors. Electronically signed by: Khang Matthew M.D. 10/02/2020 6:19 PM
[2020-10-02] MEDS: allopurinoL 300 MG TAB PO SCH (21:48)
[2020-10-02] MEDS: EZETIMIBE 10 MG TABLET PO SCH (21:48)
[2020-10-02] MEDS: SIMVASTATIN 40 MG TAB PO SCH (21:49)
[2020-10-02] MEDS: oxyCODONE/ACETAMINOPHEN 5mg/325mg TAB PO PRN (22:51)
[2020-10-02] MEDS: cefTRIAXone SODIUM 2,000 MG in DEXTROSE 5% 50 ML IV SCH (22:51)
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
[2020-10-03] MEDS: LEVOTHYROXINE SODIUM 50 MCG TABLET PO SCH (06:01)
[2020-10-03 06:29] LABS: BUN Creatinine Ratio 32.5 (10-20); Calcium 8.7 mg/dl (8.5-10.1); Creatinine Clr Calc Pharmacy 38.6 ml/min; Est GFR (African American) 36.6 ml/min; Est GFR (Non-African American) 31.5 ml/min; Potassium 4.5 mmol/L (3.5-5.1)
[2020-10-03] MEDS: INSULIN ASPART 100 UNITS/ML 3 ML PEN SC SCH ×4 (08:21→20:30)
[2020-10-03] MEDS: ASPIRIN 81 MG ECTAB PO SCH (08:22)
[2020-10-03] MEDS: FERROUS SULFATE 325 MG TAB PO SCH ×2 (08:22→17:42)
[2020-10-03] MEDS: dilTIAZem HCL 240 MG CAPCR PO SCH (08:22)
[2020-10-03] MEDS: APIXABAN 2.5 MG TAB PO SCH ×2 (08:22→20:02)
[2020-10-03] MEDS: hydrALAZINE TAB 50 MG TAB PO SCH ×3 (08:23→20:02)
[2020-10-03] MEDS: INSULIN GLARGINE SOLOSTAR 100 UNITS/ML 3 ML PEN SC SCH ×2 (08:23→21:26)
[2020-10-03] MEDS: METOPROLOL SUCC 50MG EXT REL TAB PO SCH ×2 (08:24→20:02)
[2020-10-03] MEDS: POLYETHYLENE (MIRALAX) 17 GM PACK PO SCH (08:24)
[2020-10-03] MEDS: CEROVITE ADV FORMULA TAB PO SCH (08:24)
[2020-10-03] MEDS: SERTRALINE HCL 50 MG TABLET PO SCH (08:25)
[2020-10-03] MEDS: FUROSEMIDE 40 MG TAB PO SCH (09:16)
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
[2020-10-03] MEDS: allopurinoL 300 MG TAB PO SCH (20:02)
[2020-10-03] MEDS: SIMVASTATIN 40 MG TAB PO SCH (20:02)
[2020-10-03] MEDS: EZETIMIBE 10 MG TABLET PO SCH (20:03)
[2020-10-03] MEDS: oxyCODONE/ACETAMINOPHEN 5mg/325mg TAB PO PRN (21:25)
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
[2020-10-04] MEDS: cefTRIAXone SODIUM 2,000 MG in DEXTROSE 5% 50 ML IV SCH
[2020-10-04] MEDS: LEVOTHYROXINE SODIUM 50 MCG TABLET PO SCH (05:38)
[2020-10-04] MEDS: INSULIN ASPART 100 UNITS/ML 3 ML PEN SC SCH ×3 (07:52→17:33)
[2020-10-04] MEDS: CEROVITE ADV FORMULA TAB PO SCH (08:15)
[2020-10-04] MEDS: FERROUS SULFATE 325 MG TAB PO SCH ×2 (08:15→17:34)
[2020-10-04] MEDS: FUROSEMIDE 40 MG TAB PO SCH (08:15)
[2020-10-04] MEDS: dilTIAZem HCL 240 MG CAPCR PO SCH (08:15)
[2020-10-04] MEDS: SERTRALINE HCL 50 MG TABLET PO SCH (08:16)
[2020-10-04] MEDS: hydrALAZINE TAB 50 MG TAB PO SCH ×2 (08:16→15:31)
[2020-10-04] MEDS: ASPIRIN 81 MG ECTAB PO SCH (08:16)
[2020-10-04] MEDS: APIXABAN 2.5 MG TAB PO SCH (08:16)
[2020-10-04] MEDS: METOPROLOL SUCC 50MG EXT REL TAB PO SCH ×2 (08:16→20:52)
[2020-10-04] MEDS: INSULIN GLARGINE SOLOSTAR 100 UNITS/ML 3 ML PEN SC SCH (08:17)
[2020-10-04] MEDS: POLYETHYLENE (MIRALAX) 17 GM PACK PO SCH (08:17)
[2020-10-04 09:02] LABS: BUN Creatinine Ratio 35.2 (10-20); Calcium 9.4 mg/dl (8.5-10.1); Est GFR (African American) 33.4 ml/min; Est GFR (Non-African American) 28.8 ml/min
[2020-10-04] MEDS: oxyCODONE/ACETAMINOPHEN 5mg/325mg TAB PO PRN (09:12)
[2020-10-04 09:40] LABS: Potassium 4.5 mmol/L (3.5-5.1)
[2020-10-04 09:41] LABS: Magnesium 3.4 mg/dl (1.8-2.4)
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
[2020-10-05] MEDS: METOPROLOL SUCC 50MG EXT REL TAB PO SCH (09:06)
[2020-10-05] MEDS: dilTIAZem HCL 240 MG CAPCR PO SCH (09:06)
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
== END 2020-10-05 16:02 | disposition hospice, home (50) | DRG 291 ==
LOC: ED 11:51 → 2E 16:07 → SUATTDRO 16:07 → 2E 18:45 → 3W 10-04 14:57